=== PATIENT | male | born 1995 | race Asian ===

== ENCOUNTER 2019-10-07 20:54 | Emergency (ER) | payer OTHER ==
[2019-10-07 21:16] VITALS: BP 132/73; PULSE 76; TEMP 98.6; BMI 16.2
[2019-10-07] MEDS ORDERED: KETOROLAC TROMETHAMINE 60 MG/2 ML VIAL IM ONE (21:34)
[2019-10-07] MEDS ORDERED: METHOCARBAMOL 500 MG TABLET PO ONE (21:34)
--- NOTE | 2019-10-07 21:43 | PDOC ---
History of Present Illness - General Chief Complaint: Pain, Acute Stated Complaint: PAIN IN THE HIP Time Seen by Provider: 10/07/19 21:11 History Source: Patient Exam Limitations: Clinical Condition - History of Present Illness Initial Comments: 10/07/19 21:39 Patient with past medical history back bulging disc present with complaint of worsening left lower back pain radiating to posterior back of left thigh and hip pain which started this morning while laying down. Patient reported has been having URI symptoms and fevers for 2 weeks now and was seen by PCP and again in emergency room 2 days ago in [facility] in [place] which blood work and imaging was done and everything came back normal and was advised to follow-up with netsuite developer. Patient report did not have back pains until this morning. Denies any fever now. Denies cough today, shortness of breath, urinary frequency, dysuria, burning with urination, penile discharge, testicular pain or swelling. Patient has been taking naproxen prescribed by PCP for back pains which report has not been helping with back pain. Denies recent trauma or injury to lower back. Denies any other symptoms Is this a multiple visit Asthma Patient?: No Timing/Duration: other (this AM) Past History - Medical History Allergies/Adverse Reactions: Allergies Allergy/AdvReac Type Severity Reaction Status Date / Time No Known Allergies Allergy Verified 10/07/19 21:55 Home Medications: Ambulatory Orders Methocarbamol [Robaxin -] 500 mg PO BID PRN #14 tablet 10/07/19 Methylprednisolone [Medrol Dose Gerard] 4 mg PO ASDIR #21 tablet 10/07/19 COPD: No - Psycho-Social/Smoking History Smoking History: Never smoked - Substance Abuse Hx (Audit-C & DAST Scrn) How often the patient has a drink containing alcohol: Never Score: In Men: 4 or > Positive; In Women: 3 or > Positive: 0 Screen Result (Pos requires Nsg. Audit-10AR): Negative In the last yr the pt used illegal drug/Rx for NonMed reason: No Score: Yes response is considered Positive: 0 Screen Result (Positive result requires Nsg. DAST-10): Negative Review of Systems - Review of Systems Able to Perform ROS?: Yes Is the patient limited [place] proficient: No Constitutional: No: Chills, Fever, Malaise HEENTM: No: Symptoms Reported, See HPI, Eye Pain, Blurred Vision, Tearing, Recent change in vision, Double Vision, Cataracts, Ear Pain, Ocular Prothesis, Ear Discharge, Nose Pain, Nose Congestion, Tinnitus, Nose Bleeding, Hearing Loss, Throat Pain, Throat Swelling, Mouth Pain, Dental Problems, Difficulty Swallowing, Mouth Swelling, Other Respiratory: No: Symptoms reported, See HPI, Cough, Orthopnea, Shortness of Breath, SOB with Exertion, SOB at Rest, Stridor, Wheezing, Productive cough, Hemoptysis, Other Cardiac (ROS): No: Symptoms Reported, See HPI, Chest Pain, Edema, Irregular Heart Rate, Lightheadedness, Palpitations, Syncope, Chest Tightness, Other ABD/GI: No: Symptoms Reported, Nausea, Vomiting : No: Symptoms Reported, Dysuria, Discharge, Frequency, Hematuria, Urgency Musculoskeletal: Yes: Symptoms Reported, See HPI, Back Pain (left lower back). No: Muscle Weakness Integumentary: No: Symptoms Reported Neurological: No: Symptoms reported, Headache, Paresthesia, Weakness, Dizziness All Other Systems: Reviewed and Negative *Physical Exam - Vital Signs Last Vital Signs Temp Pulse Resp BP Pulse Ox 98.6 F 76 19 132/73 100 10/07/19 21:03 10/07/19 21:03 10/07/19 21:03 10/07/19 21:03 10/07/19 21:03 - Physical Exam 10/07/19 21:44 GENERAL: Well developed, well nourished. Awake and alert in moderate acute distress. CARDIOVASCULAR: Regular rate and rhythm. No murmurs, rubs, or gallops. PULMONARY: No evidence of respiratory distress. Lungs clear to auscultation bilaterally. No wheezing, rales or rhonchi. ABDOMINAL: Soft. Non-tender. Non-distended. No rebound or guarding. No organomegaly. Normoactive bowel sounds MUSCULOSKELETAL : Moderate subjective tenderness over posterior paravertebral muscle of lumbosacral spine of L4-5 to S2 on left side which is worse with external rotation of the hip to the right. No midline tenderness. Negative straight leg test. No bony deformities SKIN: Warm and dry. Normal capillary refill. No rashes. No jaundice. NEUROLOGICAL: Alert, awake, appropriate. No motor deficits in the lower extremities. Gait is normal without ataxia. PSYCHIATRIC: Cooperative. Good eye contact. Appropriate mood and affect. General Appearance: Yes: Nourished, Appropriately Dressed, Apparent Distress, Moderate Distress ED Treatment Course - RADIOLOGY Radiology Studies Ordered: Category Date Time Status PELVIS [RAD] Stat Radiology 10/07/19 21:34 Ordered SPINE-LUMBAR SACRAL [RAD] Stat Radiology 10/07/19 21:34 Ordered Medical Decision Making - Medical Decision Making 10/07/19 21:41 Patient with past medical history back bulging disc present with complaint of worsening left lower back pain radiating to posterior back of left thigh and hip pain which started this morning while laying down. Patient reported has been having URI symptoms and fevers for 2 weeks now and was seen by PCP and again in emergency room 2 days ago in [facility] in [place] which blood work and imaging was done and everything came back normal and was advised to follow-up with netsuite developer. Patient report did not have back pains until this morning. Denies any fever now. Denies cough today, shortness of breath, urinary frequency, dysuria, burning with urination, penile discharge, testicular pain or swelling. Patient has been taking naproxen prescribed by PCP for back pains which report has not been helping with back pain. Denies recent trauma or injury to lower back. Denies any other symptoms. Patient report back pain worse with getting up from sitting or laying position. Exam significant for moderate subjective tenderness to left paravertebral muscle of lumbosacral spine of L5-S1 which is worse with external rotation of the hip to the right. No midline tenderness. No radiculopathy on exam. Symptoms likely musculoskeletal pain and back spasm versus less likely cystitis UA, urine culture and urine GC and chlamydia tests ordered. Toradol 60 mg IM and Robaxin thousand milligrams p.o. ordered for back spasm. Lumbosacral spine and pelvic x-ray ordered to rule out acute abnormality. Reassess after medication and imaging 10/07/19 23:35 UA within normal limit. X-ray of lumbosacral shows straightening of the spine consistent with spasm. Patient reported improvement of back pain with Toradol and Robaxin. Patient stable for discharge on Medrol Gerard for inflammatory effect and Robaxin for spasm with advised to do hot compresses with orthopedic spine follow-up Discharge - Discharge Information Problems reviewed: Yes Clinical Impression/Diagnosis: Lumbago with sciatica, left side Qualifiers: Chronicity: acute Back pain laterality: left Qualified Code(s): M54.42 - Lumbago with sciatica, left side Condition: Improved Disposition: HOME - Admission No - Additional Discharge Information Prescriptions: Methylprednisolone [Medrol Dose Gerard] 4 mg PO ASDIR #21 tablet Methocarbamol [Robaxin -] 500 mg PO BID PRN #14 tablet PRN Reason: Back Pain - Follow up/Referral Referrals: Rubin Dominguez MD, FAANS [Staff Physician] - - Patient Discharge Instructions Patient Printed Discharge Instructions: DI for Low Back Pain Additional Instructions: Your urine lab was normal. Your x-ray shows spasm of the back which is likely the cause of your pain. Take prescribed medication as prescribed for back spasm. Apply heat to lower back 2-3 times a day as needed for pain. Follow-up referred to orthopedic asset specialist if symptoms persist for more than 3 days - Post Discharge Activity
[2019-10-07] MEDS ORDERED: LIDOCAINE 5% TOPICAL PATCH TP ONE (21:47)
[2019-10-07 21:53] LABS: PH,URINE 6.5 (5.0-8.0); URINE APPEARANCE CLEAR; URINE BILIRUBIN NEGATIVE (NEGATIVE); URINE COLOR YELLOW; URINE GLUCOSE (UA) NEGATIVE (NEGATIVE); URINE KETONE NEGATIVE (NEGATIVE); URINE LEUK ESTERASE NEGATIVE (NEGATIVE); URINE NITRITE NEGATIVE (NEGATIVE); URINE PROTEIN TRACE (NEGATIVE)
== END 2019-10-07 23:40 | disposition home or self-care (01) ==
LOC: JERFT 20:54
PROC: 3E0233Z Introduction of Anti-inflammatory into Muscle, Percutaneous Approach (ICD-10-PCS; principal; 2019-10-07)
DX: M54.42 Lumbago with sciatica, left side (principal)
CPT/HCPCS: 36415; 72100-TC-FY; 72170-TC-FY; 81003; 87086; 87491; 87591; 99284-25

== ENCOUNTER 2019-10-10 00:32 | Inpatient (IN) | payer OTHER ==
[2019-10-10 00:49] VITALS: BMI 29.8
--- NOTE | 2019-10-10 01:03 | PDOC ---
Attending Attestation - Resident Resident Name: Traci Delacruz - ED Attending Attestation I have performed the following: I have examined & evaluated the patient, The case was reviewed & discussed with the resident, I agree w/resident's findings & plan - HPI HPI: 10/10/19 01:57 see resident hpi - Physicial Exam PE: 10/10/19 01:58 see resident exam - Medical Decision Making 10/10/19 01:58 24-year-old male with persistent low back pain radiating to the leg, seen x2 prior for similar complaints Will CT abdomen pelvis and lumbar spine No history of urinary incontinence or retention, no saddle anesthesia Plan for admission for intractable pain and MRI pending results and IV steroids, Toradol and Valium Discharge - Discharge Information Problems reviewed: Yes Clinical Impression/Diagnosis: Lumbago with sciatica, left side Condition: Fair - Follow up/Referral Referrals: Benigno Beckman MD [Primary Care Provider] - - Patient Discharge Instructions - Post Discharge Activity
--- NOTE | 2019-10-10 01:07 | PDOC ---
History of Present Illness - General Chief Complaint: Back Pain Stated Complaint: BACK PAIN Time Seen by Provider: 10/10/19 01:02 - History of Present Illness Initial Comments: HPI Pt is a 24yo M with no significant PMH who presents with L posterior hip pain x3 days. Pt was here on 10/06 for left back pain with radiation to left posterior thigh and hip pain, pain was improved with Toradol and Robaxin, and he was discharged with Robaxin and medrol. Since then, he states that pain has been worsening, with no effect from the two prescriptions. States that pain is described as sharp left gluteal pain with paresthesia of left foot. States that he has been unable to move his leg due to pain. States that pain is worse with coughing, which he has had since his residual URI from 3 weeks ago. Reports cons tipation, cough. Denies any bowel or bladder incontinence, denies any recent trauma. Denies f/c, chest pain, SOB, abdominal pain, n/v. PCP: Karuna PMH: denies PSH: L ACL repair Meds: see chart Allergies: NKDA Social: denies tobacco, etoh, illicit drug use Review of Systems CONSTITUTIONAL:denies fever, chills, diaphoresis, generalized weakness, loss of appetite HEENT:denies rhinorrhea, nasal congestion, sore throat CARDIOVASCULAR:denies chest pain, syncope, palpitations, RESPIRATORY:reports cough; denies shortness of breath GASTROINTESTINAL: denies abdominal pain, nausea, vomiting, diarrhea, melena, hematochezia GENITOURINARY:denies dysuria, frequency, urgency, flank pain, genital pain MUSCULOSKELETAL:reports low back pain; denies myalgia, arthralgia, neck pain HEMATOLOGIC/IMMUNOLOGIC:denies easy bleeding, easy bruising ENDOCRINE: denies unexplained weight gain, unexplained weight loss NEUROLOGIC:reports L foot paresthesias, L leg weakness; denies headache, loss of consciousness, dizziness, mental status changes, bladder or bowel incontinence SKIN:denies rash, itching, pallor Physical Exam General: awake, alert, fully oriented, in moderate distress, well developed, well nourished Head: normocephalic, atraumatic Eyes: PERRL, EOMI, anicteric sclera, conjunctiva clear ENT: Auricles normal inspection, hearing grossly normal Neck: supple, normal ROM Lung: equal breath sounds b/l, CTA b/l, no crackles, wheezes; no distress, speaks full sentences Heart: RRR, normal S1, S2, no murmurs appreciated Abdomen: soft, non tender, normoactive bowel sounds, no guarding, rebound, masses Extremities: +straight leg raise of L leg, - active ROM of L leg, decreased dorsiflexion of L foot, sensation intact b/l; no edema, no erythema or tenderness, DP/PT pulses 2+ and symmetric; - saddle anesthesia Neuro: CN2-12 grossly intact, normal speech, sensation intact Skin: warm, dry, no rashes or lesions noted MDM Pt is a 24yo M with no significant PMH who presents with L posterior hip pain x3 days, previously seen here 3 days ago for ?sciatica discharged with Robaxin and Medrol, returning with worsening pain. DDx including but not limited to: sciatica, cauda equina, disc herniation Workup: labs, cxr, ekg TX: pain control EKG: normal sinus rhythm, HR 61bpm, SC 176ms, QRS 102ms, QTc 430ms, T wave in version in III, avr, v1 Bedside US of post void bladder size < 50cc CT lumbar spine: mild central canal narrowing at L4-L5 due to disc bulge, mild central canal narrowing and moderate L lateral recess narrowing at L5/S1, with possible L S1 nerve root compression secondary to herniated disc osteophyte complex - consider f/u MRI CT a/p: Minimal bilateral pleural effusions without definite evidence of pneumonia. Mild splenomegaly Will order CT chest, CRP, LDH, ferritin Labs: leukocytosis (13.2), no anemia, electrolytes WNL Elevated LFTs (AST 197, ALT 866, Alk Phos 389) - pt denies etoh use; states that a week ago, he was using 1000mg of Tylenol q6h for fever for 1.5 weeks and yesterday used the same dose for his pain. Will check salicylate, acetaminophen levels Salicylate <1.7 Acetaminophen <2 Elevated ferritin, CRP, LDH Ferritin: 2975.6 CRP 12.3 LDH 332 Called poison control, spoke with Angel(?), recommended repeat LFTs, if they are trending up, recommended starting NAC. Noted that elevated LFTs could be related to COVID. - Will order repeat LFT CT chest: There are small bilateral pleural effusions associated with atelectatic changes in the posterior lower lobes bilaterally. The remainder of the lungs are clear. The heart appears somewhat enlarged for 24-year-old. No pericardial effusions. - Will order cardiac profile Admission discussed with patient, who agreed with plan. Signed out to day team, Dr. Matthew Fry pending repeat LFT, cardiac profile, pending admission Past History - Medical History Allergies/Adverse Reactions: Allergies Allergy/AdvReac Type Severity Reaction Status Date / Time No Known Allergies Allergy Verified 10/10/19 00:48 Home Medications: Ambulatory Orders NK [No Known Home Medication] 10/10/19 COPD: No - Psycho-Social/Smoking History Smoking History: Never smoked Information on smoking cessation initiated: No - Substance Abuse Hx (Audit-C & DAST Scrn) How often the patient has a drink containing alcohol: Never Score: In Men: 4 or > Positive; In Women: 3 or > Positive: 0 Screen Result (Pos requires Nsg. Audit-10AR): Negative In the last yr the pt used illegal drug/Rx for NonMed reason: No Score: Yes response is considered Positive: 0 Screen Result (Positive result requires Nsg. DAST-10): Negative *Physical Exam - Vital Signs Last Vital Signs Temp Pulse Resp BP Pulse Ox 97.2 F L 89 18 125/77 96 10/10/19 00:43 10/10/19 00:43 10/10/19 00:43 10/10/19 00:43 10/10/19 00:43 ED Treatment Course - LABORATORY CBC & Chemistry Diagram: 10/11/19 05:44 10/11/19 05:44 Discharge - Discharge Information Problems reviewed: Yes Clinical Impression/Diagnosis: Lumbago with sciatica, left side Condition: Fair - Admission Yes - Follow up/Referral - Patient Discharge Instructions - Post Discharge Activity
[2019-10-10] MEDS ORDERED: DEXAMETHASONE 4 MG TABLET (FP) PO ONE (01:52)
[2019-10-10] MEDS ORDERED: KETOROLAC TROMETHAMINE 30 MG/1 ML VIAL IVPUSH ONE (01:53)
[2019-10-10] MEDS ORDERED: diazePAM 5 MG TABLET PO ONE (01:53)
[2019-10-10] MEDS ORDERED: DEXAMETHASONE SOD PHOSPHATE 10 MG/1 ML VIAL ONE (02:00)
[2019-10-10] MEDS ORDERED: KETOROLAC TROMETHAMINE 30 MG/1 ML VIAL ONE (02:01)
[2019-10-10] MEDS ORDERED: diazePAM 5 MG TABLET ONE (02:01)
[2019-10-10 02:16] LABS: BASO % 0.3 % (0-2.0); HEMATOCRIT 38.1 % (35.4-49); HEMOGLOBIN 12.8 GM/dL (11.7-16.9); LYMPH % 13.4 % (8-40); MCH 30.2 pg (25.7-33.7); MCHC 33.4 g/dl (32.0-35.9); MEAN CELL VOLUME 90.2 fl (80-96); MEAN PLT VOLUME 7.4 fl (7.5-11.1); MONO % 11.3 % (3.8-10.2); PLATELET COUNT 328 K/MM3 (134-434); RBC 4.23 M/mm3 (4.00-5.60); RDW 14.4 % (11.9-15.9); WHITE BLOOD COUNT 13.2 K/mm3 (4.0-10.0)
[2019-10-10 02:37] LABS: ALBUMIN 2.9 g/dl (3.4-5.0); BILIRUBIN,TOTAL 0.7 mg/dL (0.2-1); BLOOD UREA NITROGEN 12.8 mg/dL (7-18); CALCIUM 8.6 mg/dL (8.5-10.1); CREATININE 0.8 mg/dL (0.55-1.3); POTASSIUM 4.6 mmol/L (3.5-5.1); TOT PROT 7.4 g/dl (6.4-8.2)
[2019-10-10 04:05] LABS: PH,URINE 6.5 (5.0-8.0); URINE APPEARANCE CLEAR; URINE BILIRUBIN NEGATIVE (NEGATIVE); URINE COLOR YELLOW; URINE GLUCOSE (UA) NEGATIVE (NEGATIVE); URINE KETONE NEGATIVE (NEGATIVE); URINE LEUK ESTERASE NEGATIVE (NEGATIVE); URINE NITRITE NEGATIVE (NEGATIVE); URINE PROTEIN NEGATIVE (NEGATIVE)
[2019-10-10 04:24] LABS: INR 1.07 (0.83-1.09); PROTHROMBIN TIME (PATIENT) 12.6 SEC (9.7-13.0)
[2019-10-10 04:27] LABS: ACTIVATED PTT 32.5 SECONDS (25.2-36.5)
--- NOTE | 2019-10-10 07:32 | PDOC ---
*Physical Exam - Vital Signs Last Vital Signs Temp Pulse Resp BP Pulse Ox 97.2 F L 69 18 122/72 97 10/10/19 00:43 10/10/19 03:42 10/10/19 03:42 10/10/19 03:42 10/10/19 03:42 ED Treatment Course - LABORATORY CBC & Chemistry Diagram: 10/18/19 08:15 10/18/19 08:15 - ADDITIONAL ORDERS Additional order review: Laboratory Results 10/10/19 10/10/19 10/10/19 04:03 03:57 03:54 PT with INR 12.60 INR 1.07 PTT (Actin FS) 32.5 Sodium Potassium Chloride Carbon Dioxide Anion Gap BUN Creatinine Est GFR (CKD-EPI)AfAm Est GFR (CKD-EPI)NonAf Random Glucose Calcium Ferritin Cancelled Total Bilirubin AST ALT Alkaline Phosphatase LD Total Cancelled C-Reactive Protein Cancelled Total Protein Albumin Urine Color Urine Appearance Urine pH Ur Specific Sarver Urine Protein Urine Glucose (UA) Urine Ketones Urine Blood Urine Nitrite Urine Bilirubin Urine Urobilinogen Ur Leukocyte Esterase Salicylates < 1.7 L Acetaminophen < 2.0 10/10/19 10/10/19 03:46 01:50 PT with INR INR PTT (Actin FS) Sodium 136 Potassium 4.6 Chloride 102 Carbon Dioxide 26 Anion Gap 8 BUN 12.8 Creatinine 0.8 Est GFR (CKD-EPI)AfAm 146.96 Est GFR (CKD-EPI)NonAf 126.80 Random Glucose 123 H Calcium 8.6 Ferritin 2975.6 H Total Bilirubin 0.7 AST 197 H ALT 866 H Alkaline Phosphatase 389 H LD Total 332 H C-Reactive Protein 12.3 H Total Protein 7.4 Albumin 2.9 L Urine Color Yellow Urine Appearance Clear Urine pH 6.5 Ur Specific Sarver 1.019 Urine Protein Negative Urine Glucose (UA) Negative Urine Ketones Negative Urine Blood Negative Urine Nitrite Negative Urine Bilirubin Negative Urine Urobilinogen 1.0 Ur Leukocyte Esterase Negative Salicylates Acetaminophen 10/10/19 01:50 RBC 4.23 MCV 90.2 MCHC 33.4 RDW 14.4 MPV 7.4 L Neutrophils % 75.0 Lymphocytes % 13.4 Monocytes % 11.3 H Eosinophils % 0.0 Basophils % 0.3 - Medications Given in the ED: ED Medications Discontinued Medications Generic Name Dose Route Start Last Admin Trade Name Freq PRN Reason Stop Dose Admin Dexamethasone 10 mg 08/25/20 01:52 10/10/19 02:06 Decadron - PO 10/10/19 01:53 10 mg ONCE ONE Administration Diazepam 5 mg 10/10/19 01:53 10/10/19 02:06 Valium - PO 10/10/19 01:54 5 mg ONCE ONE Administration Ketorolac Tromethamine 30 mg 10/10/19 01:53 10/10/19 02:06 Toradol Injection - IVPUSH 10/10/19 01:54 30 mg ONCE ONE Administration Medical Decision Making - Medical Decision Making 10/10/19 07:30 24y/o M presenting to ED with back pain. trend lft's, if uptrending, NAC per poison control center impingement at S1 nerve root admit pt not in any acute distress at this time 10/10/19 07:38 CT lumbar spine: mild central canal narrowing at L4-L5 due to disc bulge, mild c entral canal narrowing and moderate L lateral recess narrowing at L5/S1, with possible L S1 nerve root compression secondary to herniated disc osteophyte complex - consider f/u MRI CT a/p: Minimal bilateral pleural effusions without definite evidence of pneumonia. Mild splenomegaly Will order CT chest, CRP, LDH, ferritin 10/10/19 09:35 spoke with poison control (Sonal) who will discuss case with toxicology fellow and call us back troponin negative EKG: NSR, no st elvations normal qt and pr intervals. second set of LFT's. AST reduced with mild increase in ALT acetaminophen and salicylate levels were negative, pt in no acute distress second page sent out to [facility] awaiting call back for admission. 10/10/19 09:51 poison control not recommending NAC. 10/10/19 11:36 admitting paged for admission. Discharge - Discharge Information Problems reviewed: Yes Clinical Impression/Diagnosis: Lumbago with sciatica, left side Condition: Improved Disposition: VNS/HOME HEALTH CARE - Follow up/Referral - Patient Discharge Instructions - Post Discharge Activity
[2019-10-10 08:44] LABS: ALBUMIN 3.2 g/dl (3.4-5.0); ALK PHOS 414 U/L (45-117); ANION GAP 13 MMOL/L (8-16); BILIRUBIN,TOTAL 0.8 mg/dL (0.2-1); BLOOD UREA NITROGEN 16.2 mg/dL (7-18); CHLORIDE 102 mmol/L (98-107); CO2 21 mmol/L (21-32); CREATININE 1.1 mg/dL (0.55-1.3); GLUCOSE,RANDOM 134 mg/dL (74-106); POTASSIUM 4.7 mmol/L (3.5-5.1); SGOT/AST 177 U/L (15-37); SGPT/ALT 889 U/L (13-61); SODIUM 136 mmol/L (136-145)
--- NOTE | 2019-10-10 10:15 | EKG ---
Test Reason : Blood Pressure : / mmHG Vent. Rate : 061 BPM Atrial Rate : 061 BPM P-R Int : 176 ms QRS Dur : 102 ms QT Int : 428 ms P-R-T Axes : 032 027 011 degrees QTc Int : 430 ms NORMAL SINUS RHYTHM NORMAL ECG NO PREVIOUS ECGS AVAILABLE Confirmed by MD Tylre Daniel ([id number]) on 10/10/2019 10:15:24 AM Referred By: Confirmed By:Misha Tyler MD
--- NOTE | 2019-10-10 13:01 | HP ---
CHIEF COMPLAINT: intractable RLE pain PCP: Dr. Benigno Beckman HISTORY OF PRESENT ILLNESS: 24M w/ no pmhx presents with complaints of LLE pain since last Wednesday (10/07/19). He woke up that morning and had extreme difficulty getting out of bed due to pain that started in his L glut radiating down the back of his R leg to his toes. Additionally, he complains of numbness and weakness in his L leg. States he required use of a crutch to help him walk around. Denies ever having this type of pain before although he does have a history of bulging discs in the L-spine after which he completed PT. On the same day of the start of his symptoms, he went to the ED and was discharged on Robaxin and Solumedrol. Neither medication gave him symptomatic relief so he presented today for further evaluation. He states the LLE pain is worse when coughing, sitting, and walking. At baseline, he is an active young male who usually exercises everyday (biking, running, weightlifting), however his usual physical activity level was interrupted 2 weeks ago when he developed a fever and productive cough. Since 2 weeks prior, he had been taking Tylenol for the fever, reports 1000mg Q6H. He took Tylenol for his more recent LLE pain as well, but again with no symptomatic relief. Denies any injury or trauma to leg. Currently, denies headaches, dizziness, f/c, chest pain, sob, abd pain, urinary/bowel symptoms, bowel/bladder incontinence. Denies sick contacts. ER course was notable for: (1) VS wnl, WBC 13.2, Ferr 2975, AST/ALT 197/866 --> 177/889, Alk P 389 --> 414, LDH 332, CRP 12.3 (2) Decadron 10 mg, IV Toradol 30, Valium 5 mg (3) Imaging studies as follows: * CT chest: Bibasal atelectatic changes, minimal b/l pleural effusion; cannot r/o superimposed pna; small pericardial effusion along inf margin of heart, hepatosplenomegaly * CTAP: No acute process * CT L-spine: L5-S1 minimal central/L paracentral disc bulge and min L paracentral posterior spur formation w/o gross nerve root impingement; L4-L5 level there is questionable min central disc bulge w/o nerve root impingement Given pt's acute transaminitis and recent use of Tylenol, poison control was contacted by ED team with recommendation for no further intervention and to avoid hepatoxic agents. 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 but since start of symptoms, has been staying with parents Allergies No Known Allergies Allergy (Verified 10/10/19 00:48) HOME MEDICATIONS: Home Medications Medication Instructions Recorded NK [No Known Home Medication] 10/10/19 REVIEW OF SYSTEMS CONSTITUTIONAL: Absent: fever, chills, diaphoresis, generalized weakness, malaise, loss of appetite, weight change HEENT: Absent: rhinorrhea, nasal congestion, throat pain, throat swelling, difficulty swallowing, mouth swelling, ear pain, eye pain, visual changes CARDIOVASCULAR: Absent: chest pain, syncope, palpitations, irregular heart rate, lightheadedness, peripheral edema RESPIRATORY: Absent: cough, shortness of breath, dyspnea with exertion, orthopnea, wheezing, stridor, hemoptysis GASTROINTESTINAL: Absent: abdominal pain, abdominal distension, nausea, vomiting, diarrhea, constipation, melena, hematochezia GENITOURINARY: Absent: dysuria, frequency, urgency, hesitancy, hematuria, flank pain, genital pain MUSCULOSKELETAL: +L gluteal pain with radiation down back of L leg to toes Absent: myalgia, arthralgia, joint swelling, back pain, neck pain SKIN: Absent: rash, itching, pallor HEMATOLOGIC/IMMUNOLOGIC: Absent: easy bleeding, easy bruising, lymphadenopathy, frequent infections ENDOCRINE: Absent: unexplained weight gain, unexplained weight loss, heat intolerance, cold intolerance NEUROLOGIC: +L leg numbness and tingling Absent: headache, focal weakness or paresthesias, dizziness, unsteady gait, seizure, mental status changes, bladder or bowel incontinence PSYCHIATRIC: Absent: anxiety, depression, suicidal or homicidal ideation, hallucinations. PHYSICAL EXAMINATION Vital Signs - 24 hr 10/10/19 10/10/19 10/10/19 00:43 03:42 07:36 Temperature 97.2 F L 97.6 F Pulse Rate 89 Pulse Rate [ 69 65 Left Radial] Respiratory 18 18 18 Rate Blood Pressure 125/77 Blood Pressure 122/72 124/80 [Right Arm] O2 Sat by Pulse 96 97 96 Oximetry (%) 10/10/19 12:00 Temperature Pulse Rate Pulse Rate [ 64 Left Radial] Respiratory 18 Rate Blood Pressure Blood Pressure 127/79 [Right Arm] O2 Sat by Pulse 98 Oximetry (%) GENERAL: Mildly uncomfortable appearing male, AAOx3. Cooperative. HEENT: AT/NC. EOMI. MMM. Facial muscles intact. NECK: Normal range of motion, supple without lymphadenopathy, JVD, or masses. LUNGS: CTA b/l. no wheezes/rales. HEART: RRR, normal S1, S2. No murmurs noted. ABDOMEN: Soft, NT/ND. normoactive bowel sounds. No rebound tenderness or guarding. MUSCULOSKELETAL: Limited ROM in b/l LE due to pain. +TTP in L glute, no masses or deformities noted. UPPER EXTREMITIES: 2+ pulses, warm, well-perfused. No cyanosis. No clubbing. No peripheral edema. 5/5 muscle strength in b/l extremities. LOWER EXTREMITIES: 2+ pulses, warm, well-perfused. No calf tenderness. No peripheral edema. Limited LLE ROM due to pain, but able to move b/l LE extremities on command. NEUROLOGICAL: Cranial nerves II-XII intact. Normal speech. SKIN: Warm, dry, normal turgor, no rashes or lesions noted, normal capillary refill. CBCD WBC 13.2 K/mm3 (4.0-10.0) H 10/10/19 01:50 RBC 4.23 M/mm3 (4.00-5.60) 10/10/19 01:50 Hgb 12.8 GM/dL (11.7-16.9) 10/10/19 01:50 Hct 38.1 % (35.4-49) 10/10/19 01:50 MCV 90.2 fl (80-96) 10/10/19 01:50 MCHC 33.4 g/dl (32.0-35.9) 10/10/19 01:50 RDW 14.4 % (11.9-15.9) 10/10/19 01:50 Plt Count 328 K/MM3 (134-434) 10/10/19 01:50 MPV 7.4 fl (7.5-11.1) L 10/10/19 01:50 CMP Sodium 136 mmol/L (136-145) 10/10/19 06:30 Potassium 4.7 mmol/L (3.5-5.1) 10/10/19 06:30 Chloride 102 mmol/L (98-107) 10/10/19 06:30 Carbon Dioxide 21 mmol/L (21-32) 10/10/19 06:30 Anion Gap 13 MMOL/L (8-16) 10/10/19 06:30 BUN 16.2 mg/dL (7-18) 10/10/19 06:30 Creatinine 1.1 mg/dL (0.55-1.3) 10/10/19 06:30 Calcium 9.0 mg/dL (8.5-10.1) 10/10/19 06:30 Total Bilirubin 0.8 mg/dL (0.2-1) 10/10/19 06:30 AST 177 U/L (15-37) H 10/10/19 06:30 ALT 889 U/L (13-61) H 10/10/19 06:30 Alkaline Phosphatase 414 U/L (45-117) H 10/10/19 06:30 Total Protein 8.0 g/dl (6.4-8.2) 10/10/19 06:30 Albumin 3.2 g/dl (3.4-5.0) L 10/10/19 06:30 IMAGING: * CT chest: Bibasal atelectatic changes, minimal b/l pleural effusion; cannot r/o superimposed pna; small pericardial effusion along inf margin of heart, hepatosplenomegaly * CTAP: No acute process * CT L-spine: L5-S1 minimal central/L paracentral disc bulge and min L paracentral posterior spur formation w/o gross nerve root impingement; L4-L5 level there is questionable min central disc bulge w/o nerve root impingement ASSESSMENT/PLAN: 24M w/ no pmhx presents with complaints of LLE pain. #LLE pain; 2/2 sciatica vs. nerve impingement vs. piriformis syndrome -CT L-spine done; results noted above. -Decadron, Valium, Toradol given x1 in ED -Gabapentin 100 TID -Valium 2 mg TID -Neurosurg consulted -Physical therapy #Acute Transaminitis; AST/ALT 177/889 -Avoid hepatotoxic drugs -Cont to trend -R/o COVID #Fever/Cough; CT +pleural effusion, cannot r/o pna -Will hold off on abx coverage for now as CT finding may be due to atelectasis -IS -Monitor for fever, cont to trend WBC for any worsening signs of infection -COVID pending, Ferritin/CRP/LDH elevated #Prophylaxis DVT: Lovenox #FEN -PO hydration -recheck lytes in AM -Regular diet Dispo -Admit to med-surg Family Medical History Family History: As Documented Visit type - Emergency Visit Emergency Visit: Yes Care time: The patient presented to the Emergency Department on the above date and was hospitalized for further evaluation of their emergent condition. - New Patient This patient is new to me today: Yes Date on this admission: 10/10/19 - Critical Care Critical Care patient: No ATTENDING PHYSICIAN STATEMENT I saw and evaluated the patient. I reviewed the resident's note and discussed the case with the resident. I agree with the resident's findings and plan as documented. SUBJECTIVE: OBJECTIVE: ASSESSMENT AND PLAN:
[2019-10-10] MEDS ORDERED: GABAPENTIN 100 MG CAPSULE ONE ×2 (13:36→21:33)
[2019-10-10] MEDS ORDERED: diazePAM 2 MG TABLET ONE ×2 (13:36→21:33)
[2019-10-10] MEDS: diazePAM 2 MG TABLET PO SCH ×2 (14:03→22:15)
[2019-10-10] MEDS: GABAPENTIN 100 MG CAPSULE PO SCH ×2 (14:03→22:15)
--- NOTE | 2019-10-10 14:13 | PN ---
Teaching Attending Note Name of Resident: Elin Colon ATTENDING PHYSICIAN STATEMENT I saw and evaluated the patient. I reviewed the resident's note and discussed the case with the resident. I agree with the resident's findings and plan as documented. SUBJECTIVE: 24yo M with no significant medical history presents today with acute lower back pain with radiation to his L leg. Patient reports that he was at his normal activity 1-2 weeks prior (biking and running) when he developed a cough and subjective fevers. Patient ceased exercising regularly and was taking Tylenol at that time for his symptoms (4 gm/day at peak use). Patient developed back pain and was seen in the ER 10/06 where he was discharged with a Medrol dose pack and Robaxin for spasms and inflammation of the lower back. Patient returned today due to acute worsening with severe pain down L leg. Patient denies any parasthesias or urinary incontinence. Currently, pt is unable to walk due to pain and instability from his acute episode. His ROM is severely limited and undergoes frequent spasms. In addition he has an infrequent unproductive cough, however he denies any fevers within 24h, sick contacts, SOB, CP, palpitations, abdominal pain, diarrhea/constipation. PMHX: None PSHx: ACL repair remotely FamHx: Noncontributory SoHx: No tobacco, alcohol, or illicit substances OBJECTIVE: Vital Signs Temperature 97.6 F 10/10/19 07:36 Pulse Rate 64 10/10/19 12:00 Respiratory Rate 18 10/10/19 12:00 Blood Pressure 127/79 10/10/19 12:00 O2 Sat by Pulse Oximetry (%) 98 10/10/19 12:00 Gen: NAD, awake, alert, laying in bed HEENT: NC/AT, COLE, EOMI, MMM Neck: no TTP of cervical spine LUNG: CTA b/l without wheezes/rales CARD: RRR no murmurs ABD: Soft, NT/ND normoactive BS MSK: No TTP down spinous processes of thoracic and lumbar spine, paraspinal muscle tension, ROM limited with L hip movement Neuro: Sensation intact in all area of lower extremities, strength of L leg 3/5 with hip flexion and hip abduction (limited 2/2 to pain) otherwise strength 5/5 throughout. Gait not examined CBC, BMP 10/10/19 01:50 10/10/19 06:30 Hepatic Panel Total Bilirubin 0.8 mg/dL (0.2-1) 10/10/19 06:30 AST 177 U/L (15-37) H 10/10/19 06:30 ALT 889 U/L (13-61) H 10/10/19 06:30 Alkaline Phosphatase 414 U/L (45-117) H 10/10/19 06:30 Albumin 3.2 g/dl (3.4-5.0) L 10/10/19 06:30 Active Medications Diazepam (Valium -) 2 mg PO TID [facility] Last Admin: 10/10/19 14:03 Dose: 2 mg Documented by: Gabapentin (Neurontin -) 100 mg PO TID [facility] Last Admin: 10/10/19 14:03 Dose: 100 mg Documented by: ASSESSMENT AND PLAN: Acute Lumbar Disc Herniation vs. musculoskeletal spasm Inability to ambulate Transaminitis --Start gabapentin 100mg TID for neuropathic pain --Valium 2mg TID PRN for muscular spams --Neurosurgery vs. ortho spine consult --Possibility of MRI for assessment of root impingement --Physical therapy --Transaminitis likely related to tylenol use --ED notified poison control which recommended observation without intervention --Gentle hydration --Monitor LFTs FEN: Fluids: If LFT elevate can gently hydrate Electrolyte abnormalities: none Nutrition: Regular Dispo: M/S David Newman DO - IM
[2019-10-10] MEDS ORDERED: guaiFENesin 600 MG TABLET.ER (FP) PO SCH (22:00)
[2019-10-11] MEDS ORDERED: oxyCODONE HCL 5 MG TABLET PO ONE (02:20)
[2019-10-11] MEDS ORDERED: oxyCODONE HCL 5 MG TABLET ONE (02:31)
[2019-10-11 06:11] LABS: BASO % 0.1 % (0-2.0); HEMATOCRIT 37.5 % (35.4-49); HEMOGLOBIN 12.6 GM/dL (11.7-16.9); LYMPH % 21.9 % (8-40); MCH 30.1 pg (25.7-33.7); MCHC 33.6 g/dl (32.0-35.9); MEAN CELL VOLUME 89.4 fl (80-96); MEAN PLT VOLUME 6.9 fl (7.5-11.1); MONO % 12.3 % (3.8-10.2); NEUT % 65.7 % (42.8-82.8); PLATELET COUNT 374 K/MM3 (134-434); WHITE BLOOD COUNT 11.2 K/mm3 (4.0-10.0)
[2019-10-11] MEDS ORDERED: GABAPENTIN 100 MG CAPSULE ONE ×2 (06:16→15:21)
[2019-10-11] MEDS ORDERED: diazePAM 2 MG TABLET ONE ×2 (06:16→15:21)
[2019-10-11] MEDS: diazePAM 2 MG TABLET PO SCH ×3 (06:26→21:21)
[2019-10-11] MEDS: GABAPENTIN 100 MG CAPSULE PO SCH ×3 (06:26→21:21)
[2019-10-11 06:39] LABS: ALBUMIN 2.8 g/dl (3.4-5.0); ANION GAP 10 MMOL/L (8-16); BILIRUBIN,TOTAL 0.7 mg/dL (0.2-1); CALCIUM 8.9 mg/dL (8.5-10.1); CHLORIDE 103 mmol/L (98-107); CO2 24 mmol/L (21-32); CREATININE 0.9 mg/dL (0.55-1.3); GLUCOSE,RANDOM 95 mg/dL (74-106); POTASSIUM 4.4 mmol/L (3.5-5.1); SGOT/AST 81 U/L (15-37); SGPT/ALT 590 U/L (13-61); SODIUM 137 mmol/L (136-145); TOT PROT 7.2 g/dl (6.4-8.2)
[2019-10-11 07:06] LABS: ALK PHOS 322 U/L (45-117)
[2019-10-11] MEDS ORDERED: ENOXAPARIN NA (PORCINE) 40 MG/0.4 ML DISP.SYRIN SQ SCH (10:00)
[2019-10-11] MEDS: ASCORBIC ACID 250 MG TABLET (FP) PO SCH ×2 (10:44→22:31)
[2019-10-11] MEDS: CHOLECALCIFEROL (VIT D3) 400 UNIT (10 MCG) TABLET PO SCH (10:44)
[2019-10-11] MEDS ORDERED: ZINC SULFATE 220 MG CAPSULE (FP) ONE (10:46)
[2019-10-11] MEDS ORDERED: ENOXAPARIN NA (PORCINE) 40 MG/0.4 ML DISP.SYRIN SQ ONE (10:47)
[2019-10-11] MEDS: ZINC SULFATE 220 MG CAPSULE (FP) PO SCH ×2 (10:47→21:22)
[2019-10-11] MEDS: BENZOCAINE/MENTH/CETYLPYRD CL 1 EACH LOZENGE MM PRN ×2 (11:04→15:46)
[2019-10-11 12:00] LABS: BILIRUBIN,DIRECT 0.3 mg/dL (0.0-0.2)
[2019-10-11] MEDS ORDERED: PIPERACILLIN/TAZOB 3.375 GM 3.375 GM in DEXTROSE 5%-WATER - 50 ML IVPB SCH (14:15)
[2019-10-11] MEDS ORDERED: DEXAMETHASONE SOD PHOSPHATE 10 MG/1 ML VIAL IVPUSH ONE (14:40)
[2019-10-11] MEDS ORDERED: PIPERACILLIN/TAZOB 3.375 GM 3.375 GM/50 ML BAG IVPB ONE (15:21)
[2019-10-11] MEDS ORDERED: DEXAMETHASONE SOD PHOSPHATE 10 MG/1 ML VIAL ONE (15:21)
[2019-10-11] MEDS: PIPERACILLIN/TAZOB 3.375 GM 3.375 GM in DEXTROSE 5%-WATER - 50 ML IVPB SCH ×2 (15:27→18:38)
--- NOTE | 2019-10-11 16:55 | PN ---
Physical Exam: SUBJECTIVE: Patient seen and examined at bedside. Pt reports back pain and severe weakness of b/l lower extremity and cough. Denies any recent fever, chills, SOB, abdominal pain, chest pain, incontinence and diarrhea. endorses fever on wednesday. states cannot move legs due to weakness and pain OBJECTIVE: Vital Signs Period Temp Pulse Resp BP Sys/Sims Pulse Ox Last 24 Hr 97.9 F-98.1 F 69-78 16-18 110-122/62-76 98-[address] barros, due to decreased exposure/limited PPE Pt is AAAox3 +s1 s2, no murmurs noted CTA b/l 2/5 LLE weakness, 3/5 on the RLE no Lower extremity edema b/l pulses palpable in all extremities Laboratory Results - last 24 hr 10/10/19 10/11/19 10/11/19 05:00 03:56 05:44 WBC 11.2 H RBC 4.20 Hgb 12.6 Hct 37.5 MCV 89.4 MCH 30.1 MCHC 33.6 RDW 14.0 Plt Count 374 MPV 6.9 L Absolute Neuts (auto) 7.3 Neutrophils % 65.7 Lymphocytes % 21.9 D Monocytes % 12.3 H Eosinophils % 0.0 Basophils % 0.1 Nucleated RBC % 0 ESR D-Dimer 1028 H Sodium Potassium Chloride Carbon Dioxide Anion Gap BUN Creatinine Est GFR (CKD-EPI)AfAm Est GFR (CKD-EPI)NonAf Random Glucose Calcium Ferritin Total Bilirubin Direct Bilirubin AST ALT Alkaline Phosphatase C-Reactive Protein Total Protein Albumin Acetaminophen COVID-19 (KAREN) Not detected 10/11/19 10/11/19 10/11/19 05:44 05:44 15:24 WBC RBC Hgb Hct MCV MCH MCHC RDW Plt Count MPV Absolute Neuts (auto) Neutrophils % Lymphocytes % Monocytes % Eosinophils % Basophils % Nucleated RBC % ESR 85 H D-Dimer Sodium 137 Potassium 4.4 Chloride 103 Carbon Dioxide 24 Anion Gap 10 BUN 19.0 H Creatinine 0.9 Est GFR (CKD-EPI)AfAm 140.02 Est GFR (CKD-EPI)NonAf 120.81 Random Glucose 95 Calcium 8.9 Ferritin > 2000.0 H Total Bilirubin 0.7 Direct Bilirubin 0.3 H AST 81 H ALT 590 H Alkaline Phosphatase 322 H C-Reactive Protein 7.2 H Total Protein 7.2 Albumin 2.8 L Acetaminophen < 2 COVID-19 (KAREN) Active Medications Generic Name Dose Route Start Last Admin Trade Name Freq PRN Reason Stop Dose Admin Ascorbic Acid 250 mg 10/11/19 10:00 10/11/19 10:44 Vitamin C - PO 250 mg BID AMINA Administration Benzocaine/Menthol 1 each 10/10/19 17:28 10/11/19 15:46 Cepacol Lozenge - MM 1 each PRN PRN Administration SORE THROAT Cholecalciferol 800 unit 10/11/19 10:00 10/11/19 10:44 Vitamin D3 - PO 800 unit DAILY AMINA Administration Diazepam 2 mg 10/10/19 14:00 10/11/19 15:26 Valium - PO 2 mg TID AMINA Administration Enoxaparin Sodium 40 mg 10/11/19 10:00 10/11/19 10:47 Lovenox - SQ 40 mg DAILY AMINA Administration Gabapentin 100 mg 10/10/19 14:00 10/11/19 15:26 Neurontin - PO 100 mg TID AMINA Administration Piperacillin Sod/Tazobactam 50 mls @ 100 mls/hr 10/11/19 14:15 Sod 3.375 gm/ Dextrose IVPB Q8H-IV AMINA Protocol Piperacillin Sod/Tazobactam 50 mls @ 100 mls/hr 10/11/19 14:15 10/11/19 15:27 Sod 3.375 gm/ Dextrose IVPB 10/12/19 14:14 100 mls/hr Q8H-IV AMINA Administration Protocol Morphine Sulfate 2 mg 10/11/19 14:38 Morphine Sulfate IVPUSH Q6H PRN PAIN LEVEL 4 - 6 Zinc Sulfate 220 mg 10/11/19 10:00 10/11/19 10:47 Orazinc - PO 220 mg BID AMINA Administration IMAGING 10/10/19: * CT chest: Bibasal atelectatic changes, minimal b/l pleural effusion; cannot r/o superimposed pna; small pericardial effusion along inf margin of heart, hepatosplenomegaly * CTAP: No acute process * CT L-spine: L5-S1 minimal central/L paracentral disc bulge and min L paracentral posterior spur formation w/o gross nerve root impingement; L4-L5 level there is questionable min central disc bulge w/o nerve root impingement MRI L Spine 10/11/19- DJD L4/5, L5/S1. L5/S1 disc herniation with extruded disc obliterating the left epidural recesses with mass effect on the L S1 nerve root; L4/5midline herniation lateralizing toward the R with indentation on the R L5 nerve root. no evidence of septic spondylitis, epidural abscess or praraspinal masses. ASSESSMENT/PLAN: 24M w/ no pmhx presents with complaints of LLE pain and weakness with infrequent unproductive cough. #LLE weakness/pain - Possible nerve root impairment vs abscess vs compression - CT L-spine done; results noted above. Ordered Lumbar MRI - continue Gabapentin 100 TID - continue Valium 2 mg TID - Neurosurg consulted, pending recs - Physical therapy on board - pain management consulted - Neurology consulted, pending recs - Decadron 10 given #Elavated inflamatory markers, r/o covid - Covid negative, will repeat covid - D-dimer 1028, Ferritin 2975, LD 332, CRP 12.3 - Coninue to monitor v/s - CTA negative for PE, Duplex negative for DVT - No Disciitis or abscess on MRI L Spine, pending MRI T Spine - continue to trend inflammatory markers - Will send flu swab and viral panel - Blood/Urine Cx pending - Continue zosyn #Acute Transaminitis - AST/ALT 177/889 - Avoid hepatotoxic drugs - Cont to trend LFTs - GI consulted, Dr. Hernandez, recs: When stable, MRCP for further eval - f/u hepatitis panel - CTAB reviewed: hepatomegaly noted - Abdomen u/s ordered #Prophylaxis - DVT: Holding Lovenox pending Neurosurgery eval. - will give GI PPX protonix daily #FEN - No standing fluids - Continue to monitor electrolytes - Regular diet Dispo - Continue to monitor in med-surg Visit type - Emergency Visit Emergency Visit: Yes ED Registration Date: 10/10/19 Care time: The patient presented to the Emergency Department on the above date and was hospitalized for further evaluation of their emergent condition. - New Patient This patient is new to me today: Yes Date on this admission: 10/15/19 - Critical Care Critical Care patient: No - Discharge Referral Referred to [facility] No ATTENDING PHYSICIAN STATEMENT I saw and evaluated the patient. I reviewed the resident's note and discussed the case with the resident. I agree with the resident's findings and plan as documented. SUBJECTIVE: OBJECTIVE: ASSESSMENT AND PLAN:
--- NOTE | 2019-10-11 17:01 | PN ---
Progress Note (short form) - Note Progress Note: GI CONSULT DICTATED SEROLOGY ORDERED WHEN STABLE MRCP TO FURTHER EVALUATE THE BILIARY TREE TREND LFT DAILY NEUROSURGERY F/U
[2019-10-11] MEDS ORDERED: DEXTROSE 5%-WATER - 50 ML IVPB ONE (18:00)
[2019-10-11] MEDS ORDERED: PIPERACILLIN/TAZOBACTAM 3.375 GM VIAL IVPB ONE (18:00)
--- NOTE | 2019-10-11 18:47 | PN ---
Teaching Attending Note Name of Resident: Min Easley ATTENDING PHYSICIAN STATEMENT I saw and evaluated the patient. I reviewed the resident's note and discussed the case with the resident. I agree with the resident's findings and plan as documented. SUBJECTIVE: Pain LLE limiting range of motion. Pain on LLE on moving RLE. No fever/chills. No sensory loss. OBJECTIVE: Afebrile, Hemodynamically stable. Last Vital Signs Temp Pulse Resp BP Pulse Ox 98.2 F 70 16 130/72 99 10/11/19 17:50 10/11/19 17:50 10/11/19 17:50 10/11/19 17:50 10/11/19 17:50 HEENT - Atraumatic, normocephalic Heart - S1, s2, RRR Lungs - clear to auscultation Abdomen - soft, non-tender. Bowel Sounds normal. Extremities - No edema, no calf tenderness. Neuro - AAO x 3. Severe pain limiting neurological exam LEs. Appears to have good tone and strength distal to knee. Laboratory Results - last 24 hr 10/10/19 10/11/19 10/11/19 05:00 03:56 05:44 WBC 11.2 H RBC 4.20 Hgb 12.6 Hct 37.5 MCV 89.4 MCH 30.1 MCHC 33.6 RDW 14.0 Plt Count 374 MPV 6.9 L Absolute Neuts (auto) 7.3 Neutrophils % 65.7 Lymphocytes % 21.9 D Monocytes % 12.3 H Eosinophils % 0.0 Basophils % 0.1 Nucleated RBC % 0 ESR D-Dimer 1028 H Sodium Potassium Chloride Carbon Dioxide Anion Gap BUN Creatinine Est GFR (CKD-EPI)AfAm Est GFR (CKD-EPI)NonAf Random Glucose Calcium Ferritin Total Bilirubin Direct Bilirubin AST ALT Alkaline Phosphatase C-Reactive Protein Total Protein Albumin Acetaminophen COVID-19 (KAREN) Not detected 10/11/19 10/11/19 10/11/19 05:44 05:44 15:24 WBC RBC Hgb Hct MCV MCH MCHC RDW Plt Count MPV Absolute Neuts (auto) Neutrophils % Lymphocytes % Monocytes % Eosinophils % Basophils % Nucleated RBC % ESR 85 H D-Dimer Sodium 137 Potassium 4.4 Chloride 103 Carbon Dioxide 24 Anion Gap 10 BUN 19.0 H Creatinine 0.9 Est GFR (CKD-EPI)AfAm 140.02 Est GFR (CKD-EPI)NonAf 120.81 Random Glucose 95 Calcium 8.9 Ferritin > 2000.0 H Total Bilirubin 0.7 Direct Bilirubin 0.3 H AST 81 H ALT 590 H Alkaline Phosphatase 322 H C-Reactive Protein 7.2 H Total Protein 7.2 Albumin 2.8 L Acetaminophen < 2 COVID-19 (KAREN) Current Medications Generic Name Dose Route Start Last Admin Trade Name Freq PRN Reason Stop Dose Admin Ascorbic Acid 250 mg 10/11/19 10:00 10/11/19 10:44 Vitamin C - PO 250 mg BID AMINA Administration Benzocaine/Menthol 1 each 10/10/19 17:28 10/11/19 15:46 Cepacol Lozenge - MM 1 each PRN PRN Administration SORE THROAT Cholecalciferol 800 unit 10/11/19 10:00 10/11/19 10:44 Vitamin D3 - PO 800 unit DAILY AMINA Administration Diazepam 2 mg 10/10/19 14:00 10/11/19 15:26 Valium - PO 2 mg TID AMINA Administration Enoxaparin Sodium 40 mg 10/11/19 10:00 10/11/19 10:47 Lovenox - SQ 40 mg DAILY AMINA Administration Gabapentin 100 mg 10/10/19 14:00 10/11/19 15:26 Neurontin - PO 100 mg TID AMINA Administration Piperacillin Sod/Tazobactam 50 mls @ 100 mls/hr 10/11/19 14:15 Sod 3.375 gm/ Dextrose IVPB Q8H-IV AMINA Protocol Piperacillin Sod/Tazobactam 50 mls @ 100 mls/hr 10/11/19 14:15 10/11/19 15:27 Sod 3.375 gm/ Dextrose IVPB 10/12/19 14:14 100 mls/hr Q8H-IV AMINA Administration Protocol Morphine Sulfate 2 mg 10/11/19 14:38 Morphine Sulfate IVPUSH Q6H PRN PAIN LEVEL 4 - 6 Zinc Sulfate 220 mg 10/11/19 10:00 10/11/19 10:47 Orazinc - PO 220 mg BID AMINA Administration Home Medications Medication Instructions Recorded Methocarbamol [Robaxin -] 500 mg PO BID PRN 10/11/19 ASSESSMENT AND PLAN: 24 year old male with history of DJD Spine with disc disease, complains of 4 day history of LLE pain starting in his L glut radiating down the back of his L leg to his toes. Recent febrile illness and sinus congestion/cough. CT chest: Bibasal atelectatic changes, minimal b/l pleural effusion; cannot r/o superimposed pna; small pericardial effusion along inferior margin of heart, hepatosplenomegaly CTA/P: No acute process CT L-spine: L5-S1 minimal central/L paracentral disc bulge and min L paracentral posterior spur formation w/o gross nerve root impingement; L4-L5 level there is questionable min central disc bulge w/o nerve root impingement 1. Acute Disc Herniation with radiculopathy MRI L Spine - DJD L4/5, L5/S1. L5/S1 disc herniation with extruded disc obliterating the left epidural recesses with mass effect on the L S1 nerve root; L4/5midline herniation lateralizing toward the R with indentation on the R L5 nerve root. no evidence of septic spondylitis, epidural abscess or praraspinal masses. Started on Decadron, Valium, Gabapentin, Morphine PRN Awaiting Neurosurgery evaluation Neurology consulted. 2. ?Infective/Inflamatory process DDIMER/CRP/Ferritin/ESR elevated CTA chest - no PE, bibasilar atelectasis/Duplex LEs - No DVT. No Disciitis or abscess on MRI L Spine, MRI T Spine ordered COVID PCR negative Blood/Urine Cx pending. Afebrile, Hemodynamically Stable - Empiric Zosyn pending Cultures. 3. Elevated Transaminases with CBD dilatation - LFTs improving, no abdominal symptoms or fever GI consulted for further evaluation and recommendations. 4. Pericardial effusion on CT - Echo ordered. DVT Px - Will hold Lovenox pending Neurosurgery eval.
[2019-10-11] MEDS ORDERED: PANTOPRAZOLE SODIUM 40 MG VIAL IVPUSH SCH (19:00)
--- NOTE | 2019-10-11 19:31 | CONS ---
GASTROINTESTINAL CONSULTATION DATE OF CONSULTATION: DATE OF DICTATION: 10/11/2019 Patient is a 24-year-old man with no significant past medical history, who presents to the hospital with left lower extremity pain which began on Wednesday. He had difficulty walking and parasthesia. This consultation is for abnormal liver tests as well as biliary ductal dilation on imaging study. As per the patient, he denies any previous history of liver disease. No abdominal pain, jaundice, nausea, vomiting, hematemesis, melena, hematochezia, change in his bowel habits. He has never had an endoscopic evaluation in the past. He reports taking Tylenol for fever, apparently 1000 mg q.6 for a couple of days secondary to his lower extremity pain. He denies any other herbal supplements or new medications or antibiotics. PAST MEDICAL AND SURGICAL HISTORY: As listed in the HPI, with the addition of a left ACL repair. FAMILY HISTORY: Diabetes and hypertension. No history of liver disease or gynecological or GI malignancy. SOCIAL HISTORY: Does not drink, smoke, or use drugs. 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 ALLERGIES: No known drug allergies. HOME MEDICATIONS: None. REVIEW OF SYSTEMS: As per the HPI. PHYSICAL EXAMINATION: Vital Signs: Temperature 97, pulse 71, blood pressure 115/62, pulse oximetry 99% on room air, respiratory rate 16. General: No acute distress. HEENT: Anicteric sclerae. Cardiovascular: S1, S2. Regular rate and rhythm. Lungs: Bilaterally clear to auscultation. Abdomen: Soft, nontender. Extremities: Without edema. LABORATORY DATA: White blood cell count 13 on admission, presently 11.2; hemoglobin 12 and hematocrit 37; MCV 89; platelet count 374. INR 1. Sodium 137, potassium 4.4, BUN 19, creatinine 0.9, glucose 95, total bilirubin 0.7. AST 81, down from 197. ALT 590, down from 866. Alkaline phosphatase 322, down from 389. LDH 332. CRP is elevated. Urine is negative. Acetaminophen level is less than 2. COVID is not detected. He had abdomen and pelvic CT scan which revealed questionable pneumonia; hepatosplenomegaly; no compression fractures; L5-S1 mild, mainly left, paracentral disk bulge; posterior spur formation reaching left S1 nerve root. He also had chest/thorax CTA which was limited evaluation of the pulmonary artery branches due to breathing artifacts. No pulmonary embolism. Lumbar spine MRI: No evidence of abscess, paraspinal masses, septic spondylitis. L5-S1 left-side herniation with extruding disk obliterating the left epidural recesses with mass effect on the S1 nerve root. L4-L5 midline herniation, midline lateralizing toward the right with indentation on the right L5 nerve root and the recess. Also, had an ultrasound of the abdomen which revealed hepatosplenomegaly, coarse echotexture suggestive of mild fatty infiltration versus hepatocellular disease. No gallstones. Mild biliary ductal dilatation measuring 7 mm. IMPRESSION: Transaminitis, hepatocellular pattern, most likely medication induced. Other etiology of chronic and inherited liver disease will be excluded. Serologies will be ordered including , KATHRIN, smooth muscle antibody, alpha-1 antitrypsin, and viral hepatitis serologies. Minimally dilated common bile duct. Recommend avoiding hepatotoxic medications, trend liver tests daily while hospitalized. Diet can be advanced as tolerated. Once more stable, an MRCP would be recommended to further evaluate the biliary tree. I do not believe he has any sign of choledocholithiasis. Recommend evaluation by Neurosurgery and Ortho. DO RADHA NIÑO/[id number] MTDD
[2019-10-11] MEDS ORDERED: guaiFENesin 200 MG/10 ML 10 ML UNIT-DOSE CUPS PO ONE (21:00)
[2019-10-11] MEDS: MORPHINE SULFATE 2 MG/ML VIAL IVPUSH PRN (21:22)
--- NOTE | 2019-10-11 23:14 | CONSULT ---
Consult - text type - Consultation Consultation Note: NEUROSURGERY CONSULTATION Patient is a 24-year-old male with a remote history of lumbar disc herniation associated with athletic activity. This resolved with conservative management. Patient was in his relative state of good health until this past Wednesday when he began to notice severe low back pain with radiation to his left greater than right leg. Patient denies any recent antecedent accident or injury which may be causative however he describes a two week history of fevers and feeling unwell prior to the onset of the symptoms. The patient visited the emergency room was given muscle relaxants and other medications and discharged on Wednesday. The patient has not improved and indeed notes severe and intractable pain and returned to the emergency room last evening. CT scan revealed herniated discs at L45 and L5S1 which are not well characterized and MRI scan was advised. Patient and underwent admission and MRI scanning of the lumbar spine today. This confirms a small right sided disc bulge at L45 and a larger L5S1 disc herniation eccentric to the left. Both of these have zones of high intensity suggestive of relative acuity. The patient is neurologically non-focal although his exam is limited by pain and he is unable to get out of bed. The patient has no bowel or bladder symptoms and no sacral numbness. There is no fixed motor deficit. I discussed with patient and relative that in the absence of a fixed motor deficit or Cauda Equina syndrome, surgery is not mandatory. Indeed the patient greatly wishes to avoid surgery which is understandable. I explained that severe intractable pain refractory to all conservative efforts may represent relative indication for surgery however barring neurologic deficit, surgery in a young patient with less than 8 weeks duration of symptoms is not typically recommended. The patient verbalizing understanding this information. I describe the role of both epidural steroid injection and oral anti- inflammatory medication as well as physical therapy. At this point there is no acute neurosurgical intervention which is indicated or planned, however I will follow along with the team. Patient may resume normal diet and I advise that medications be monitored per pharmacy and poison control recommendations given his elevated liver function tests. He may be a better candidate for an injection versus systemic medication on this account.
[2019-10-12] MEDS ORDERED: PIPERACILLIN/TAZOBACTAM 3.375 GM VIAL IVPB ONE ×2 (02:09→10:17)
[2019-10-12] MEDS ORDERED: DEXTROSE 5%-WATER - 50 ML IVPB ONE ×3 (02:09→13:22)
[2019-10-12] MEDS: PIPERACILLIN/TAZOB 3.375 GM 3.375 GM in DEXTROSE 5%-WATER - 50 ML IVPB SCH ×2 (02:36→10:26)
[2019-10-12] MEDS: MORPHINE SULFATE 2 MG/ML VIAL IVPUSH PRN ×2 (04:04→22:45)
[2019-10-12] MEDS: GABAPENTIN 100 MG CAPSULE PO SCH (06:20)
[2019-10-12] MEDS: diazePAM 2 MG TABLET PO SCH ×3 (06:20→21:27)
[2019-10-12 08:58] LABS: BASO % 0.2 % (0-2.0); HEMATOCRIT 36.8 % (35.4-49); HEMOGLOBIN 12.4 GM/dL (11.7-16.9); LYMPH % 20.6 % (8-40); MCH 30.1 pg (25.7-33.7); MCHC 33.7 g/dl (32.0-35.9); MEAN CELL VOLUME 89.4 fl (80-96); MEAN PLT VOLUME 6.8 fl (7.5-11.1); MONO % 12.9 % (3.8-10.2); NEUT % 66.3 % (42.8-82.8); PLATELET COUNT 394 K/MM3 (134-434); RBC 4.12 M/mm3 (4.00-5.60); RDW 14.3 % (11.9-15.9); WHITE BLOOD COUNT 9.2 K/mm3 (4.0-10.0)
[2019-10-12 09:25] LABS: ALBUMIN 2.8 g/dl (3.4-5.0); BLOOD UREA NITROGEN 19.5 mg/dL (7-18); CALCIUM 8.9 mg/dL (8.5-10.1); CREATININE 0.8 mg/dL (0.55-1.3); MAGNESIUM 2.5 mg/dL (1.8-2.4); PHOSPHOROUS 4.1 mg/dL (2.5-4.9); POTASSIUM 4.6 mmol/L (3.5-5.1); TOT PROT 7.3 g/dl (6.4-8.2)
--- NOTE | 2019-10-12 09:38 | CONSULT ---
Consult Consult Specialty:: Interventional Spine & Pain Medicine Reason for Consultation:: Lumbar Radiculopathy - History of Present Illness Chief Complaint: Low back and Left Leg pain History of Present Illness: The patient has history of low back pain and radiculopathy. He had recent exacerbation over the last two weeks. Pt also endorsed fevers and overall not feeling well. Pt found to have Transaminitis possibly secodnary to tylenol use however pt also endores frequent supplement use includign creatine etc for body building purposes. Pain is radted 910 radiating down his left leg. Pain described as burnging tingling. - History Source History Provided By: Patient, Medical Record Limitations to Obtaining History: No Limitations - Smoking History Smoking history: Never smoked Have you smoked in the past 12 months: No Home Medications - Allergies Allergies/Adverse Reactions: Allergies Allergy/AdvReac Type Severity Reaction Status Date / Time No Known Allergies Allergy Verified 10/10/19 00:48 - Home Medications Home Medications: Ambulatory Orders Methocarbamol [Robaxin -] 500 mg PO BID PRN 10/11/19 Review of Systems - Review of Systems Constitutional: reports: No Symptoms Eyes: reports: No Symptoms HENT: reports: No Symptoms Neck: reports: No Symptoms Cardiovascular: reports: No Symptoms Respiratory: reports: No Symptoms Gastrointestinal: reports: No Symptoms Genitourinary: reports: No Symptoms Musculoskeletal: reports: Back Pain Neurological: reports: Other (Parasthesias) Hematology/Lymphatic: reports: No Symptoms Psychiatric: reports: No Symptoms Pain Intensity: 8 Physical Exam Vital Signs: Vital Signs Temperature 97.7 F 10/12/19 05:00 Pulse Rate 52 L 10/12/19 05:00 Respiratory Rate 18 10/11/19 22:00 Blood Pressure 140/66 10/12/19 05:00 O2 Sat by Pulse Oximetry (%) 97 10/12/19 05:00 Constitutional: Yes: Well Nourished, No Distress, Calm Eyes: Yes: Conjunctiva Clear, EOM Intact HENT: Yes: Atraumatic, Normocephalic Neck: Yes: Trachea Midline Cardiovascular: Yes: Regular Rate and Rhythm Respiratory: Yes: Regular Gastrointestinal: Yes: Soft Musculoskeletal: Yes: Back Pain Edema: No Integumentary: Yes: WNL Neurological: Yes: Alert, Oriented, Numbness, Paresthesia, Tingling ...Motor Strength: WNL (Right LE MMT 5/5 throughout Left LE MMT 5/5 Throughout) Psychiatric: Yes: Alert, Oriented Labs: CBC, BMP 10/12/19 07:30 10/12/19 07:30 Imaging - Results Cat Scan: Report Reviewed, Image Reviewed Ultrasound: Report Reviewed, Image Reviewed Assessment/Plan The patients pain is likley secondary to his L4-L5 and L5-S1 degenerative disk disease with HIZ on L5-S1 disk likley causing both a compressive and chemical radiculopathy. Recommendations: Pt is a candidate for a Left Transforaminal epidural steroid injection and L4 and L5. He will need to be cleared of any infection prior to injection. Consider Uptitrating gabapentin to 900 TID as tolerated. Monitor for sedation. Physical Therapy Eval May consider Medrol dose pack vs standing NSAID. Per Primary Care Team. Once patient is medically stable he would benefit from ORALIA. Thank You for Your Consult Steven Flynn DO Interventional Spine and Pain Management
[2019-10-12] MEDS: CHOLECALCIFEROL (VIT D3) 400 UNIT (10 MCG) TABLET PO SCH (10:25)
[2019-10-12] MEDS: ZINC SULFATE 220 MG CAPSULE (FP) PO SCH ×2 (10:26→21:27)
[2019-10-12] MEDS ORDERED: GABAPENTIN 300 MG CAPSULE PO SCH (11:00)
--- NOTE | 2019-10-12 11:21 | PN ---
Progress Note (short form) - Note Progress Note: Patient remain stable. Agree with plans for epidural steroid injection.
--- NOTE | 2019-10-12 11:38 | CON.NEURO ---
Consult - Smoking History Smoking history: Never smoked Have you smoked in the past 12 months: No Home Medications - Allergies Allergies/Adverse Reactions: Allergies Allergy/AdvReac Type Severity Reaction Status Date / Time No Known Allergies Allergy Verified 10/10/19 00:48 - Home Medications Home Medications: Ambulatory Orders Methocarbamol [Robaxin -] 500 mg PO BID PRN 10/11/19 Physical Exam-Neuro Vital Signs: Vital Signs Temperature 97.7 F 10/12/19 05:00 Pulse Rate 52 L 10/12/19 05:00 Respiratory Rate 18 10/11/19 22:00 Blood Pressure 140/66 10/12/19 05:00 O2 Sat by Pulse Oximetry (%) 97 10/12/19 05:00 Labs: CBC, BMP 10/12/19 07:30 10/12/19 07:30 INR, PTT INR 1.07 (0.83-1.09) 10/10/19 04:03 Assessment/Plan cc Left radicualr low back pain HPI 24 year old male history of low back pain for two years he has been treated conservative. He is on gabapentin, morphine.Patient is having severe low abck pain shooting down to left lower extremity pain. He has mri of L spine showed there is large L5-s1 disc prolapse and herniation at left side s1 nerve. His pain is wose with coughing, stiting and walking. Michelle wa seen by neurosurgery and not a candidate and being planned for epidural.Jackelyn is not able to do much activity becaue of pain. He has been having fever nad being tested for covid three times and has been negative and now on abx. er course (1) VS wnl, WBC 13.2, Ferr 2975, AST/ALT 197/866 --> 177/889, Alk P 389 --> 414, LDH 332, CRP 12.3 (2) Decadron 10 mg, IV Toradol 30, Valium 5 mg (3) Imaging studies as follows: * CT chest: Bibasal atelectatic changes, minimal b/l pleural effusion; cannot r/o superimposed pna; small pericardial effusion along inf margin of heart, hepatosplenomegaly * CTAP: No acute process * CT L-spine: L5-S1 minimal central/L paracentral disc bulge and min L paracentral posterior spur formation w/o gross nerve root impingement; L4-L5 level there is questionable min central disc bulge w/o nerve root impingement Given pt's acute transaminitis and recent use of Tylenol, poison control was contacted by ED team with recommendation for no further intervention and to avoid hepatoxic agents. 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 but since start of symptoms, has been staying with parents Allergies No Known Allergies Allergy (Verified 10/10/19 00:48) HOME MEDICATIONS: Home Medications Medication Instructions Recorded NK [No Known Home Medication] 10/10/19 ROS,FH, SH reviewd in chart NEUROLOGICAL EXAMINATION Alert oriented x 3, neck is supple vss, afebrile eomi, pupils reactive strength is normal in upper extremity THere is slr is positive on left side both legs hip flexion , extension, planter flexion and extension is normal both aries e left leg knee flexion and extension diminished effort reflex are symmetrical mri of L spine reviewed neurosurgery and pain management consult reviewed Assessment/Plan Left L5-S1 radiculopathy, no evidence of cord compression or cauda equina syndrome. Ghazalanet has been on steroid and now on gabepntin, pt and waiting for ORALIA PLAN - increase gabapnetin to 600 mg po tid - zanaflex prn - nsadi prn and PT - Waiting for ORALIA Thanking you so much Dylon Botello MD
[2019-10-12] MEDS ORDERED: PT OWN MED DRAWER 7, Y5N ONE ×2 (11:47→21:10)
[2019-10-12] MEDS: ASCORBIC ACID 250 MG TABLET (FP) PO SCH ×2 (11:47→21:27)
--- NOTE | 2019-10-12 12:51 | CON.ID ---
Consult Consult Specialty:: infectious diseases Referred by:: Reason for Consultation:: pneumonia,back pain,fevres - History of Present Illness Chief Complaint: fevers back pain History of Present Illness: 24M w/ no pmhx presents with complaints of LLE pain since last Wednesday (10/07/19). He woke up that morning and had extreme difficulty getting out of bed due to pain that started in his L glut radiating down the back of his R leg to his toes. Additionally, he complains of numbness and weakness in his L leg. States he required use of a crutch to help him walk around. Denies ever having this type of pain before although he does have a history of bulging discs in the L-spine after which he completed PT. On the same day of the start of his symptoms, he went to the ED and was discharged on Robaxin and Solumedrol. Neither medication gave him symptomatic relief so he presented today for further evaluation. He states the LLE pain is worse when coughing, sitting, and walking. At baseline, he is an active young male who usually exercises everyday (biking, running, weightlifting), however his usual physical activity level was interrupted 2 weeks ago when he developed a fever and productive cough. Since 2 weeks prior, he had been taking Tylenol for the fever, reports 1000mg Q6H. He took Tylenol for his more recent LLE pain as well, but again with no symptomatic relief. Denies any injury or trauma to leg. Currently, denies headaches, dizziness, f/c, chest pain, sob, abd pain, urinary/bowel symptoms, bowel/bladder incontinence. Denies sick contacts. patient seen by neurosurgery denies any night sweats - History Source History Provided By: Patient Limitations to Obtaining History: No Limitations - Smoking History Smoking history: Never smoked Have you smoked in the past 12 months: No Home Medications - Allergies Allergies/Adverse Reactions: Allergies Allergy/AdvReac Type Severity Reaction Status Date / Time No Known Allergies Allergy Verified 10/10/19 00:48 - Home Medications Home Medications: Ambulatory Orders Methocarbamol [Robaxin -] 500 mg PO BID PRN 10/11/19 Review of Systems - Review of Systems Constitutional: reports: Fever, Other Eyes: reports: No Symptoms HENT: reports: No Symptoms Neck: reports: No Symptoms Cardiovascular: reports: No Symptoms Respiratory: reports: Cough Gastrointestinal: reports: No Symptoms Genitourinary: reports: No Symptoms Musculoskeletal: reports: Back Pain Integumentary: reports: No Symptoms Neurological: reports: No Symptoms Endocrine: reports: No Symptoms Hematology/Lymphatic: reports: No Symptoms Psychiatric: reports: No Symptoms Physical Exam Vital Signs: Vital Signs Temperature 98.0 F 10/12/19 09:25 Pulse Rate 67 10/12/19 09:25 Respiratory Rate 18 10/12/19 09:25 Blood Pressure 117/67 10/12/19 09:25 O2 Sat by Pulse Oximetry (%) 98 10/12/19 10:00 Constitutional: Yes: Calm, Mild Distress Eyes: Yes: Conjunctiva Clear HENT: Yes: Atraumatic, Normocephalic Neck: Yes: Supple, Trachea Midline Cardiovascular: Yes: Regular Rate and Rhythm Respiratory: Yes: Regular, CTA Bilaterally Gastrointestinal: Yes: Normal Bowel Sounds, Soft Musculoskeletal: Yes: WNL Extremities: Yes: WNL Neurological: Yes: Alert, Oriented Labs: CBC, BMP 10/12/19 07:30 10/12/19 07:30 Imaging - Results Chest X-ray: Report Reviewed, Image Reviewed Cat Scan: Report Reviewed, Image Reviewed MRI: Report Reviewed, Image Reviewed Assessment/Plan this patient coming in wiht severe back pain and also fevers and cough patient received zosyn plan changed abx to zithro and ceftriaxone back as per neurosurgery quantiferon await for all results rest as per the team
[2019-10-12] MEDS ORDERED: cefTRIAXone SODIUM 1 GM VIAL ONE (13:22)
[2019-10-12] MEDS: CEFTRIAXONE 1 GM in DEXTROSE 5%-WATER - 50 ML IVPB SCH (13:23)
[2019-10-12] MEDS: AZITHROMYCIN 500 MG TABLET PO SCH (13:23)
[2019-10-12] MEDS: GABAPENTIN 300 MG CAPSULE PO SCH ×2 (14:10→21:27)
--- NOTE | 2019-10-12 14:12 | PN ---
Physical Exam: SUBJECTIVE: Patient seen and examined at bedside. No acute events overnight. He reports no pain at rest but severe pain with any movements of his LLE. He denies any fever, chills, hemoptysis, hematuria, chest pain, cough, SOB. He reports 2 weeks ago he experienced fever, night sweats and cough, but no hemoptysis. OBJECTIVE: Vital Signs Period Temp Pulse Resp BP Sys/Sims Pulse Ox Last 24 Hr 97.7 F-98.4 F 52-83 16-18 115-140/62-76 96-99 GENERAL: The patient is awake, alert, and fully oriented, in acute distress. HEAD: Normal with no signs of trauma. EYES: PERRL, extraocular movements intact, sclera anicteric, conjunctiva clear. No ptosis. ENT: Ears normal, nares patent, oropharynx clear without exudates, moist mucous membranes. NECK: Trachea midline, full range of motion, supple. LUNGS: Breath sounds equal, clear to auscultation bilaterally, no wheezes, no crackles, no accessory muscle use. HEART: Regular rate and rhythm, S1, S2 without murmur, rub or gallop. ABDOMEN: Soft, nontender, nondistended, normoactive bowel sounds, no guarding, no rebound, no hepatosplenomegaly, no masses. EXTREMITIES: 2+ pulses, warm, well-perfused, no edema. able to move RLE, limited movement of LLE, due to pain NEUROLOGICAL: Cranial nerves II through XII grossly intact. Normal speech, gait not observed. Strength 4/5 all extremities, sensation intact in all extremities, negative babinski reflex PSYCH: Normal mood, normal affect. SKIN: Warm, dry, normal turgor, no rashes or lesions noted Laboratory Results - last 24 hr 10/10/19 10/11/19 10/12/19 05:00 15:24 02:50 WBC RBC Hgb Hct MCV MCH MCHC RDW Plt Count MPV Absolute Neuts (auto) Neutrophils % Lymphocytes % Monocytes % Eosinophils % Basophils % Nucleated RBC % D-Dimer Sodium Potassium Chloride Carbon Dioxide Anion Gap BUN Creatinine Est GFR (CKD-EPI)AfAm Est GFR (CKD-EPI)NonAf Random Glucose Calcium Phosphorus Magnesium Ferritin Total Bilirubin AST ALT Alkaline Phosphatase LD Total C-Reactive Protein Total Protein Albumin Acetaminophen < 2 COVID-19 (KAREN) Not detected Influenza A (Rapid) Negative Influenza B (Rapid) Negative 10/12/19 10/12/19 10/12/19 07:30 07:30 07:30 WBC 9.2 RBC 4.12 Hgb 12.4 Hct 36.8 MCV 89.4 MCH 30.1 MCHC 33.7 RDW 14.3 Plt Count 394 MPV 6.8 L Absolute Neuts (auto) 6.1 Neutrophils % 66.3 Lymphocytes % 20.6 Monocytes % 12.9 H Eosinophils % 0.0 Basophils % 0.2 Nucleated RBC % 0 D-Dimer 863 H Sodium 137 Potassium 4.6 Chloride 104 Carbon Dioxide 24 Anion Gap 9 BUN 19.5 H Creatinine 0.8 Est GFR (CKD-EPI)AfAm 146.96 Est GFR (CKD-EPI)NonAf 126.80 Random Glucose 104 Calcium 8.9 Phosphorus 4.1 Magnesium 2.5 H Ferritin 1758.7 H Total Bilirubin 1.0 AST 53 H ALT 439 H Alkaline Phosphatase 334 H LD Total 161 C-Reactive Protein 7.5 H Total Protein 7.3 Albumin 2.8 L Acetaminophen COVID-19 (KAREN) Influenza A (Rapid) Influenza B (Rapid) Active Medications Generic Name Dose Route Start Last Admin Trade Name Freq PRN Reason Stop Dose Admin Ascorbic Acid 250 mg 10/11/19 10:00 10/12/19 11:47 Vitamin C - PO 250 mg BID AMINA Administration Azithromycin 500 mg 10/12/19 13:00 10/12/19 13:23 Zithromax PO 500 mg DAILY AMINA Administration Benzocaine/Menthol 1 each 10/10/19 17:28 10/11/19 15:46 Cepacol Lozenge - MM 1 each PRN PRN Administration SORE THROAT Cholecalciferol 800 unit 10/11/19 10:00 10/12/19 10:25 Vitamin D3 - PO 800 unit DAILY AMINA Administration Diazepam 2 mg 10/10/19 14:00 10/12/19 06:20 Valium - PO 2 mg TID AMINA Administration Gabapentin 600 mg 10/12/19 14:00 Neurontin - PO TID AMINA Piperacillin Sod/Tazobactam 50 mls @ 100 mls/hr 10/11/19 14:15 10/12/19 10:26 Sod 3.375 gm/ Dextrose IVPB 10/12/19 14:14 100 mls/hr Q8H-IV AMINA Administration Protocol Ceftriaxone Sodium 1 gm/ 50 mls @ 200 mls/hr 10/12/19 13:00 10/12/19 13:23 Dextrose IVPB 200 mls/hr DAILY AMINA Administration Protocol Morphine Sulfate 2 mg 10/11/19 14:38 10/12/19 04:04 Morphine Sulfate IVPUSH 2 mg Q6H PRN Administration PAIN LEVEL 4 - 6 Zinc Sulfate 220 mg 10/11/19 10:00 10/12/19 10:26 Orazinc - PO 220 mg BID AMINA Administration IMAGING 10/10/19: * CT chest: Bibasal atelectatic changes, minimal b/l pleural effusion; cannot r/o superimposed pna; small pericardial effusion along inf margin of heart, hepatosplenomegaly * CTAP: No acute process * CT L-spine: L5-S1 minimal central/L paracentral disc bulge and min L paracentral posterior spur formation w/o gross nerve root impingement; L4-L5 level there is questionable min central disc bulge w/o nerve root impingement MRI L Spine 10/11/19- DJD L4/5, L5/S1. L5/S1 disc herniation with extruded disc obliterating the left epidural recesses with mass effect on the L S1 nerve root; L4/5midline herniation lateralizing toward the R with indentation on the R L5 nerve root. no evidence of septic spondylitis, epidural abscess or praraspinal masses. ASSESSMENT/PLAN: 24M w/ no pmhx presents with complaints of LLE pain and weakness with infrequent unproductive cough. #LLE weakness/pain - Possible nerve root impairment vs abscess vs compression - CT L-spine done; results noted above. - Lumbar MRI- as noted above - Neurosurg consulted (Dr. mario), rec: epidural steroid injection and oral anti-inflammatory medications no acute neurosurgical intervention is indicated - Physical therapy on board - pain management (Dr. Flynn) consulted, waiting scheduling for L transforminal epidural injection L4/5 - Neurology consulted (Dr. dumont), recs: increase gabapnetin to 600 mg po tid zanaflex prn nsadi prn and PT - will hold off on Decadron for now #Elavated inflamatory markers #Elevated D-dimers # possible pneumonia - Covid negative x 3, Flu negative - D-dimer 1028, Ferritin 2975, LD 332, CRP 12.3 - Coninue to monitor v/s - CTA negative for PE, Duplex negative for DVT - No Disciitis or abscess on MRI L Spine, - pending MRI T Spine - Blood Cx pending - Urine culture-No growth - ID consulted, Dr. Cox. changed abx to zithro and ceftriaxone - Pending viral pannel - pending Quantiferon #Acute Transaminitis #CBD Dilation: - AST/ALT 177/889 - v/s are stable - Cont to trend LFTs - GI consulted, Dr. Hernandez, recs: When stable, MRCP for further eval - f/u hepatitis panel - CTAB reviewed: hepatomegaly noted - Abdomen u/s ordered: Mild fatty infiltration vs hepatocellular disease. Mild Dilation of CBD 7mm w/o gallstones - Avoid hepatotoxic drugs #Pericardial effusion on CT - Pending echo eval #Prophylaxis - DVT: pending Pain management evaluation and epidural injection - will give GI PPX protonix daily #FEN - No standing fluids - Continue to monitor electrolytes - Regular diet Dispo - Continue to monitor in med-surg Visit type - Emergency Visit Emergency Visit: Yes ED Registration Date: 10/10/19 Care time: The patient presented to the Emergency Department on the above date and was hospitalized for further evaluation of their emergent condition. - New Patient This patient is new to me today: Yes Date on this admission: 10/15/19 - Critical Care Critical Care patient: No - Discharge Referral Referred to [facility] No ATTENDING PHYSICIAN STATEMENT I saw and evaluated the patient. I reviewed the resident's note and discussed the case with the resident. I agree with the resident's findings and plan as documented. SUBJECTIVE: OBJECTIVE: ASSESSMENT AND PLAN:
--- NOTE | 2019-10-12 15:08 | PN ---
Teaching Attending Note Name of Resident: Min Easley ATTENDING PHYSICIAN STATEMENT I saw and evaluated the patient. I reviewed the resident's note and discussed the case with the resident. I agree with the resident's findings and plan as documented. SUBJECTIVE: Ongoing pain LLE limiting range of motion. Pain in LLE on moving RLE. No fever/chills. No sensory loss. OBJECTIVE: Afebrile, Hemodynamically stable. Last Vital Signs Temp Pulse Resp BP Pulse Ox 97.6 F 80 18 123/68 97 10/12/19 14:37 10/12/19 14:37 10/12/19 14:37 10/12/19 14:37 10/12/19 14:37 Heart - S1, S2, RRR Lungs - clear to auscultation Abdomen - soft, non-tender. Bowel Sounds normal. Extremities - No edema, no calf tenderness. MS - Mild tenderness over LS spine. Neuro - AAO x 3. Severe pain limiting neurological exam LEs. Appears to have good tone and strength distal to knee. Laboratory Results - last 24 hr 10/11/19 10/12/19 10/12/19 15:24 02:50 07:30 WBC RBC Hgb Hct MCV MCH MCHC RDW Plt Count MPV Absolute Neuts (auto) Neutrophils % Lymphocytes % Monocytes % Eosinophils % Basophils % Nucleated RBC % D-Dimer 863 H Sodium Potassium Chloride Carbon Dioxide Anion Gap BUN Creatinine Est GFR (CKD-EPI)AfAm Est GFR (CKD-EPI)NonAf Random Glucose Calcium Phosphorus Magnesium Ferritin Total Bilirubin AST ALT Alkaline Phosphatase LD Total C-Reactive Protein Total Protein Albumin Acetaminophen < 2 Influenza A (Rapid) Negative Influenza B (Rapid) Negative 10/12/19 10/12/19 07:30 07:30 WBC 9.2 RBC 4.12 Hgb 12.4 Hct 36.8 MCV 89.4 MCH 30.1 MCHC 33.7 RDW 14.3 Plt Count 394 MPV 6.8 L Absolute Neuts (auto) 6.1 Neutrophils % 66.3 Lymphocytes % 20.6 Monocytes % 12.9 H Eosinophils % 0.0 Basophils % 0.2 Nucleated RBC % 0 D-Dimer Sodium 137 Potassium 4.6 Chloride 104 Carbon Dioxide 24 Anion Gap 9 BUN 19.5 H Creatinine 0.8 Est GFR (CKD-EPI)AfAm 146.96 Est GFR (CKD-EPI)NonAf 126.80 Random Glucose 104 Calcium 8.9 Phosphorus 4.1 Magnesium 2.5 H Ferritin 1758.7 H Total Bilirubin 1.0 AST 53 H ALT 439 H Alkaline Phosphatase 334 H LD Total 161 C-Reactive Protein 7.5 H Total Protein 7.3 Albumin 2.8 L Acetaminophen Influenza A (Rapid) Influenza B (Rapid) Current Medications Generic Name Dose Route Start Last Admin Trade Name Freq PRN Reason Stop Dose Admin Ascorbic Acid 250 mg 10/11/19 10:00 10/12/19 11:47 Vitamin C - PO 250 mg BID AMINA Administration Azithromycin 500 mg 10/12/19 13:00 10/12/19 13:23 Zithromax PO 500 mg DAILY AMINA Administration Benzocaine/Menthol 1 each 10/10/19 17:28 10/11/19 15:46 Cepacol Lozenge - MM 1 each PRN PRN Administration SORE THROAT Cholecalciferol 800 unit 10/11/19 10:00 10/12/19 10:25 Vitamin D3 - PO 800 unit DAILY AMINA Administration Diazepam 2 mg 10/10/19 14:00 10/12/19 14:10 Valium - PO 2 mg TID AMINA Administration Gabapentin 600 mg 10/12/19 14:00 10/12/19 14:10 Neurontin - PO 300 mg TID AMINA Administration Ceftriaxone Sodium 1 gm/ 50 mls @ 200 mls/hr 10/12/19 13:00 10/12/19 13:23 Dextrose IVPB 200 mls/hr DAILY AMINA Administration Protocol Morphine Sulfate 2 mg 10/11/19 14:38 10/12/19 04:04 Morphine Sulfate IVPUSH 2 mg Q6H PRN Administration PAIN LEVEL 4 - 6 Zinc Sulfate 220 mg 10/11/19 10:00 10/12/19 10:26 Orazinc - PO 220 mg BID AMINA Administration Home Medications Medication Instructions Recorded Methocarbamol [Robaxin -] 500 mg PO BID PRN 10/11/19 ASSESSMENT AND PLAN: 24 year old male with history of DJD Spine with disc disease, complains of 4 day history of LLE pain starting in his L glut radiating down the back of his L leg to his toes. Recent febrile illness and sinus congestion/cough, now resolved. CT chest: Bibasal atelectatic changes, minimal b/l pleural effusion; cannot r/o superimposed pna; small pericardial effusion along inferior margin of heart, hepatosplenomegaly CTA/P: No acute process CT L-spine: L5-S1 minimal central/L paracentral disc bulge and min L paracentral posterior spur formation w/o gross nerve root impingement; L4-L5 level there is questionable min central disc bulge w/o nerve root impingement 1. Acute Disc Herniation with radiculopathy MRI L Spine - DJD L4/5, L5/S1. L5/S1 disc herniation with extruded disc obliterating the left epidural recesses with mass effect on the L S1 nerve root; L4/5midline herniation lateralizing toward the R with indentation on the R L5 nerve root. no evidence of septic spondylitis, epidural abscess or praraspinal masses. Given Decadron, Valium, Gabapentin, Morphine PRN Neurosurgery recommends spinal injection. Neurology evaluated and recommended increasing Gabapentin dosing/Zanaflex. Currently on Valium. Pain Management consulted - awaiting scheduling for L transforminal epidural injection L4/5 2. ?Infective/Inflammatory process ?Pneumonia DDIMER/CRP/Ferritin/ESR elevated CTA chest - no PE, bibasilar atelectasis/Duplex LEs - No DVT. No Disciitis or abscess on MRI L Spine, MRI T Spine ordered COVID PCR negative/Flu negative. Viral panel pending. Urine Cx negative. Blood Cx pending. Afebrile, Hemodynamically Stable - Zosyn de-escalated to Ceftriaxone/Azithromycin by ID. 3. Elevated Transaminases with CBD dilatation - LFTs improving, no abdominal symptoms or fever GI consulted for further evaluation and recommends MRCP. 4. Pericardial effusion on CT - Echo ordered. DVT Px - Will hold Lovenox pending Pain management evaluation and epidural injection.
--- NOTE | 2019-10-12 16:01 | ECHO ---
Name: CORINNE BELTRANUL Exam:Adult Echocardiogram Study Date: 10/12/2019 12:47 PM Age: 24 yrs Reason For Study: Pericardial Effusion seen on CT Chest Height: 72 in Weight: 220 lb BSA: 2.2 m2 MMode/2D Measurements & Calculations IVSd: 1.1 cm Ao root diam: 4.0 cm LVIDd: 4.7 cm LA dimension: 2.7 cm LVIDs: 3.1 cm ACS: 2.1 cm LVPWd: 1.1 cm EDV(Teich): 104.3 ml LVOT diam: 2.3 cm ESV(Teich): 39.3 ml LAV (MOD-bp): 45.0 ml TAPSE: 2.5 cm RV S Doron: 14.8 cm/sec Doppler Measurements & Calculations MV E max doron: 79.0 cm/sec Ao V2 max: 103.2 cm/sec MV A max doron: 56.3 cm/sec Ao max P.3 mmHg MV E/A: 1.4 Ao V2 mean: 67.4 cm/sec MV dec time: 0.24 sec Ao mean P.1 mmHg Ao V2 VTI: 19.2 cm MELISA(I,D): 3.2 cm2 MELISA(V,D): 3.8 cm2 LV V1 max P.9 mmHg SV(LVOT): 61.5 ml LV V1 mean P.7 mmHg LV V1 max: 98.2 cm/sec LV V1 mean: 60.0 cm/sec LV V1 VTI: 15.4 cm TR max doron: 221.3 cm/sec PA V2 max: 96.4 cm/sec TR max P.6 mmHg PA max P.7 mmHg PA acc slope: 429.5 cm/sec2 PA acc time: 0.17 sec PI end-d doron: 77.4 cm/sec Med Peak E' Doron: 8.5 cm/sec Med E/e': 9.3 Lat Peak E' Doron: 14.5 cm/sec Lat E/e': 5.4 PA pr(Accel): 4.5 mmHg Tech Comments Patient scanned supine due to pinched nerve. Procedure A complete two-dimensional transthoracic echocardiogram was performed (2D, M-mode, Doppler and color flow Doppler). Left Ventricle The left ventricular size, thickness and function are normal. Ejection Fraction = 60-65%. The left ve ntricular wall motion is normal. Right Ventricle The right ventricle is normal in size and function. Atria Normal left and right atrial size and function. Mitral Valve There is no mitral regurgitation noted. Tricuspid Valve There is trace tricuspid regurgitation. There was insufficient TR detected to calculate RV systolic p ressure. Aortic Valve No hemodynamically significant valvular aortic stenosis. No aortic regurgitation is present. Pulmonic Valve There is no pulmonic valvular regurgitation. Great Vessels Mild aortic root dilatation. Pericardium/Pleura There is no pericardial effusion. Interpretation Summary The left ventricular size, thickness and function are normal The right ventricle is normal in size and function. There is trace tricuspid regurgitation. Mild aortic root dilatation. MD Juliano Escamilla 10/12/2019 04:01 PM
--- NOTE | 2019-10-12 20:06 | PN.GI ---
GI Progress Note Subjective: denies abdominal pain, nausea and vomiting, still has bask yen last bowel movement was 2 days ago, refused laxatives at this time LFTS down mathew trend Abdominal ultrasound--dilated CBD to 7mm - Objective Vital Signs: Vital Signs Temperature 97.6 F 10/12/19 14:37 Pulse Rate 80 10/12/19 14:37 Respiratory Rate 18 10/12/19 14:37 Blood Pressure 123/68 10/12/19 14:37 O2 Sat by Pulse Oximetry (%) 97 10/12/19 14:37 Constitutional: Well Nourished Eyes: Yes: Conjunctiva Clear HENT: Yes: Atraumatic Neck: Yes: Trachea Midline Cardiovascular: Yes: Regular Rate and Rhythm Respiratory: Yes: CTA Bilaterally ...Palpate: Yes: Soft. No: Firm/Rigid, Guarding, Hepatomegaly, Mass, Pulsatile Mass, Splenomegaly, Tenderness Labs: CBC, BMP 10/12/19 07:30 10/12/19 07:30 INR, PTT INR 1.07 (0.83-1.09) 10/10/19 04:03 Problem List - Problems (1) Dilated cbd, acquired Assessment/Plan: R> doubt CBD stone MRCP once medically improved Code(s): K83.8 - OTHER SPECIFIED DISEASES OF BILIARY TRACT (2) Elevated liver enzymes Assessment/Plan: r/o secondary to drug toxicity R> serial LFTS Code(s): R74.8 - ABNORMAL LEVELS OF OTHER SERUM ENZYMES
[2019-10-12] MEDS: BENZOCAINE/MENTH/CETYLPYRD CL 1 EACH LOZENGE MM PRN (21:25)
[2019-10-13] MEDS: diazePAM 2 MG TABLET PO SCH ×3 (06:05→21:12)
[2019-10-13] MEDS: GABAPENTIN 300 MG CAPSULE PO SCH ×3 (06:05→21:12)
[2019-10-13] MEDS: MORPHINE SULFATE 2 MG/ML VIAL IVPUSH PRN ×3 (08:10→22:17)
[2019-10-13 08:47] LABS: BASO % 0.2 % (0-2.0); EOS % 0.1 % (0-4.5); HEMATOCRIT 36.8 % (35.4-49); HEMOGLOBIN 12.3 GM/dL (11.7-16.9); LYMPH % 30.6 % (8-40); MCH 29.7 pg (25.7-33.7); MCHC 33.5 g/dl (32.0-35.9); MEAN CELL VOLUME 88.7 fl (80-96); MEAN PLT VOLUME 6.7 fl (7.5-11.1); MONO % 12.2 % (3.8-10.2); NEUT % 56.9 % (42.8-82.8); PLATELET COUNT 371 K/MM3 (134-434); RBC 4.15 M/mm3 (4.00-5.60); RDW 13.9 % (11.9-15.9); WHITE BLOOD COUNT 8.3 K/mm3 (4.0-10.0)
[2019-10-13 09:12] LABS: ALBUMIN 2.6 g/dl (3.4-5.0); BLOOD UREA NITROGEN 20.6 mg/dL (7-18); CALCIUM 8.7 mg/dL (8.5-10.1); CREATININE 0.9 mg/dL (0.55-1.3); MAGNESIUM 2.1 mg/dL (1.8-2.4); PHOSPHOROUS 2.9 mg/dL (2.5-4.9); POTASSIUM 4.5 mmol/L (3.5-5.1); TOT PROT 6.9 g/dl (6.4-8.2)
--- NOTE | 2019-10-13 09:55 | PN ---
Progress Note, Physician History of Present Illness: back pain severe - Current Medication List Current Medications: Active Medications Ascorbic Acid (Vitamin C -) 250 mg PO BID [facility] Last Admin: 10/12/19 21:27 Dose: 250 mg Documented by: Azithromycin (Zithromax) 500 mg PO DAILY [facility] Last Admin: 10/12/19 13:23 Dose: 500 mg Documented by: Benzocaine/Menthol (Cepacol Lozenge -) 1 each MM PRN PRN PRN Reason: SORE THROAT Last Admin: 10/12/19 21:25 Dose: 1 each Documented by: Cholecalciferol (Vitamin D3 -) 800 unit PO DAILY [facility] Last Admin: 10/12/19 10:25 Dose: 800 unit Documented by: Diazepam (Valium -) 2 mg PO TID [facility] Last Admin: 10/13/19 06:05 Dose: 2 mg Documented by: Gabapentin (Neurontin -) 600 mg PO TID [facility] Last Admin: 10/13/19 06:05 Dose: 600 mg Documented by: Ceftriaxone Sodium 1 gm/ (Dextrose) 50 mls @ 200 mls/hr IVPB DAILY [facility]; Protocol Last Admin: 10/12/19 13:23 Dose: 200 mls/hr Documented by: Morphine Sulfate (Morphine Sulfate) 2 mg IVPUSH Q6H PRN PRN Reason: PAIN LEVEL 4 - 6 Last Admin: 10/13/19 08:10 Dose: 2 mg Documented by: Zinc Sulfate (Orazinc -) 220 mg PO BID [facility] Last Admin: 10/12/19 21:27 Dose: 220 mg Documented by: - Objective Vital Signs: Vital Signs Temperature 99.7 F H 10/13/19 05:10 Pulse Rate 77 10/13/19 05:10 Respiratory Rate 20 10/13/19 05:10 Blood Pressure 121/65 10/13/19 05:10 O2 Sat by Pulse Oximetry (%) 88 L 10/13/19 05:10 Constitutional: Yes: Calm, Mild Distress Cardiovascular: Yes: S1, S2 Respiratory: Yes: Regular, CTA Bilaterally Gastrointestinal: Yes: Normal Bowel Sounds, Soft Musculoskeletal: Yes: Back Pain Neurological: Yes: Alert, Oriented Psychiatric: Yes: Alert, Oriented Labs: CBC, BMP 10/13/19 08:10 10/13/19 08:10 INR, PTT INR 1.07 (0.83-1.09) 10/10/19 04:03 Assessment/Plan this patient coming in wiht severe back pain and also fevers and cough patient received zosyn plan continue abx spine has seen the patient await for all results rest as per the team
[2019-10-13] MEDS ORDERED: PT OWN MED DRAWER 7, Y5N ONE ×3 (10:10→21:11)
[2019-10-13] MEDS ORDERED: cefTRIAXone SODIUM 1 GM VIAL ONE (10:10)
[2019-10-13] MEDS: ZINC SULFATE 220 MG CAPSULE (FP) PO SCH ×2 (10:11→21:12)
[2019-10-13] MEDS: CHOLECALCIFEROL (VIT D3) 400 UNIT (10 MCG) TABLET PO SCH (10:11)
[2019-10-13] MEDS ORDERED: DEXTROSE 5%-WATER - 50 ML IVPB ONE (10:11)
[2019-10-13] MEDS: CEFTRIAXONE 1 GM in DEXTROSE 5%-WATER - 50 ML IVPB SCH (10:12)
[2019-10-13] MEDS: ASCORBIC ACID 250 MG TABLET (FP) PO SCH ×2 (10:12→21:12)
[2019-10-13] MEDS: AZITHROMYCIN 500 MG TABLET PO SCH (10:13)
[2019-10-13] MEDS ORDERED: MORPHINE SULFATE 2 MG/ML VIAL IVPUSH PRN (11:34)
[2019-10-13] MEDS: methylPREDNISolone 4 MG TABLET PO SCH ×2 (13:27→21:13)
--- NOTE | 2019-10-13 13:35 | PN.GI ---
GI Progress Note Subjective: main complaint is lower back pain radiating to left leg No abdominal pain LFTs improving - Objective Vital Signs: Vital Signs Temperature 98.0 F 10/13/19 09:07 Pulse Rate 85 10/13/19 09:07 Respiratory Rate 20 10/13/19 09:07 Blood Pressure 116/70 10/13/19 09:07 O2 Sat by Pulse Oximetry (%) 94 L 10/13/19 10:00 Constitutional: Calm Eyes: No: Sclera Icterus Cardiovascular: Yes: Regular Rate and Rhythm Respiratory: Yes: CTA Bilaterally Gastrointestinal Inspection: No: Distention ...Auscultate: Yes: Normoactive Bowel Sounds ...Palpate: Yes: Soft. No: Hepatomegaly, Splenomegaly, Tenderness ...Percussion: No: Tympanitic Edema: No (No LE edema) Neurological: Yes: Alert Labs: CBC, BMP 10/13/19 08:10 10/13/19 08:10 INR, PTT INR 1.07 (0.83-1.09) 10/10/19 04:03 Hepatic Panel Total Bilirubin 1.0 mg/dL (0.2-1) 10/13/19 08:10 Direct Bilirubin 0.3 mg/dL (0.0-0.2) H 10/11/19 05:44 AST 44 U/L (15-37) H 10/13/19 08:10 ALT 315 U/L (13-61) H 10/13/19 08:10 Alkaline Phosphatase 295 U/L (45-117) H 10/13/19 08:10 Albumin 2.6 g/dl (3.4-5.0) L 10/13/19 08:10 Problem List - Problems (1) Elevated liver enzymes Assessment/Plan: Continued improvement, asymptomatic Suspect drug induced liver injury monitor LFTs Awaiti hepatitits serologies Avoid hepatotoxic agents MRCP when back pain complaints permit to evl mildly dilated CBD Code(s): R74.8 - ABNORMAL LEVELS OF OTHER SERUM ENZYMES
--- NOTE | 2019-10-13 14:29 | PN ---
Physical Exam: SUBJECTIVE: Patient seen and examined at bedside. He reports worsening of his pain and reports that he cannot tolerate his pain until wednesday for his epidural shot. He denies any active fever, chills, night sweats, nausea, vomiting, abdominal pain. OBJECTIVE: Vital Signs Period Temp Pulse Resp BP Sys/Sims Pulse Ox Last 24 Hr 97.5 F-99.7 F 77-89 18-20 116-126/65-70 88-98 GENERAL: The patient is awake, alert, and fully oriented, in acute distress. HEAD: Normal with no signs of trauma. EYES: PERRL, extraocular movements intact, sclera anicteric, conjunctiva clear. No ptosis. ENT: Ears normal, nares patent, oropharynx clear without exudates, moist mucous membranes. NECK: Trachea midline, full range of motion, supple. LUNGS: Breath sounds equal, clear to auscultation bilaterally, no wheezes, no crackles, no accessory muscle use. HEART: Regular rate and rhythm, S1, S2 without murmur, rub or gallop. ABDOMEN: Soft, nontender, nondistended, normoactive bowel sounds, no guarding, no rebound, no hepatosplenomegaly, no masses. EXTREMITIES: 2+ pulses, warm, well-perfused, no edema. able to move RLE, limited movement of LLE, due to pain NEUROLOGICAL: Cranial nerves II through XII grossly intact. Normal speech, gait not observed. Strength 4/5 all extremities, sensation intact in all extremities, negative babinski reflex PSYCH: Normal mood, normal affect. SKIN: Warm, dry, normal turgor, no rashes or lesions noted Laboratory Results - last 24 hr 10/11/19 10/13/19 10/13/19 20:00 08:10 08:10 WBC 8.3 RBC 4.15 Hgb 12.3 Hct 36.8 MCV 88.7 MCH 29.7 MCHC 33.5 RDW 13.9 Plt Count 371 MPV 6.7 L Absolute Neuts (auto) 4.7 Neutrophils % 56.9 Lymphocytes % 30.6 D Monocytes % 12.2 H Eosinophils % 0.1 D Basophils % 0.2 Nucleated RBC % 0 Sodium 136 Potassium 4.5 Chloride 102 Carbon Dioxide 29 Anion Gap 5 L BUN 20.6 H Creatinine 0.9 Est GFR (CKD-EPI)AfAm 140.02 Est GFR (CKD-EPI)NonAf 120.81 Random Glucose 81 Calcium 8.7 Phosphorus 2.9 Magnesium 2.1 Total Bilirubin 1.0 AST 44 H ALT 315 H Alkaline Phosphatase 295 H Total Protein 6.9 Albumin 2.6 L Hep A IgM Ab Confirm Negative Hep Bs Antigen Negative Hep B Core IgM Ab Negative Hepatitis C Ab (EIA) <0.1 Active Medications Generic Name Dose Route Start Last Admin Trade Name Freq PRN Reason Stop Dose Admin Ascorbic Acid 250 mg 10/11/19 10:00 10/13/19 10:12 Vitamin C - PO 250 mg BID AMINA Administration Azithromycin 500 mg 10/12/19 13:00 10/13/19 10:13 Zithromax PO 500 mg DAILY AMINA Administration Benzocaine/Menthol 1 each 10/10/19 17:28 10/12/19 21:25 Cepacol Lozenge - MM 1 each PRN PRN Administration SORE THROAT Cholecalciferol 800 unit 10/11/19 10:00 10/13/19 10:11 Vitamin D3 - PO 800 unit DAILY AMINA Administration Diazepam 2 mg 10/10/19 14:00 10/13/19 13:27 Valium - PO 2 mg TID AMINA Administration Gabapentin 600 mg 10/12/19 14:00 10/13/19 13:27 Neurontin - PO 600 mg TID AMINA Administration Ceftriaxone Sodium 1 gm/ 50 mls @ 200 mls/hr 10/12/19 13:00 10/13/19 10:12 Dextrose IVPB 200 mls/hr DAILY AMINA Administration Protocol Methylprednisolone 8 mg 10/13/19 14:00 10/13/19 13:27 Medrol - PO 10/14/19 06:01 8 mg TID AMINA Administration Morphine Sulfate 2 mg 10/13/19 11:55 Morphine Sulfate IVPUSH Q6H PRN PAIN LEVEL 4 - 6 Zinc Sulfate 220 mg 10/11/19 10:00 10/13/19 10:11 Orazinc - PO 220 mg BID AMINA Administration IMAGING 10/10/19: * CT chest: Bibasal atelectatic changes, minimal b/l pleural effusion; cannot r/o superimposed pna; small pericardial effusion along inf margin of heart, hepatosplenomegaly * CTAP: No acute process * CT L-spine: L5-S1 minimal central/L paracentral disc bulge and min L paracentral posterior spur formation w/o gross nerve root impingement; L4-L5 level there is questionable min central disc bulge w/o nerve root impingement MRI L Spine 10/11/19- DJD L4/5, L5/S1. L5/S1 disc herniation with extruded disc o bliterating the left epidural recesses with mass effect on the L S1 nerve root; L4/5midline herniation lateralizing toward the R with indentation on the R L5 nerve root. no evidence of septic spondylitis, epidural abscess or praraspinal masses. ASSESSMENT/PLAN: 24M w/ no pmhx presents with complaints of LLE pain and weakness with infrequent unproductive cough. #LLE weakness/pain - Possible nerve root impairment vs abscess vs compression - CT L-spine done; results noted above. - Lumbar MRI- as noted above - Neurosurg consulted (Dr. mario), rec: epidural steroid injection and oral anti-inflammatory medications no acute neurosurgical intervention is indicated - Physical therapy on board - pain management (Dr. Flynn) consulted, Can schedule on Wednesday for L transforminal epidural injection L4/5 Harshad Mayen is consulted for Possible Epidural injection for Wednesday. - Neurology consulted (Dr. dumont), recs: increase gabapnetin to 600 mg po tid zanaflex prn nsadi prn and PT - Starting Medrol dosepak #Elavated inflamatory markers #Elevated D-dimers # Pneumonia - Covid negative x 3, Flu negative - D-dimer 1028, Ferritin 2975, LD 332, CRP 12.3 - Coninue to monitor v/s - CTA negative for PE,-Bibasilar atelectasis, Duplex negative for DVT - No Disciitis or abscess on MRI L Spine, - pending MRI T Spine - Blood Cx pending - Urine culture-No growth - ID consulted, Dr. Cox. changed abx to zithro and ceftriaxone - Pending viral pannel - pending Quantiferon #Acute Transaminitis #CBD Dilation: - AST/ALT 177/889 - v/s are stable - Cont to trend LFTs - GI consulted, Dr. Hernandez, recs: When stable, MRCP for further eval - f/u hepatitis panel - CTAB reviewed: hepatomegaly noted - Abdomen u/s ordered: Mild fatty infiltration vs hepatocellular disease. Mild Dilation of CBD 7mm w/o gallstones - Avoid hepatotoxic drugs #Pericardial effusion on CT - -Echo: EF 60-65%, No evidence of pericardial effusion #Prophylaxis - DVT: pending Pain management evaluation and epidural injection - will give GI PPX protonix daily #FEN - No standing fluids - Continue to monitor electrolytes - Regular diet Dispo - Continue to monitor in med-surg Visit type - Emergency Visit Emergency Visit: Yes ED Registration Date: 10/10/19 Care time: The patient presented to the Emergency Department on the above date and was hospitalized for further evaluation of their emergent condition. - New Patient This patient is new to me today: Yes Date on this admission: 10/15/19 - Critical Care Critical Care patient: No - Discharge Referral Referred to [id number] No ATTENDING PHYSICIAN STATEMENT I saw and evaluated the patient. I reviewed the resident's note and discussed the case with the resident. I agree with the resident's findings and plan as documented. SUBJECTIVE: OBJECTIVE: ASSESSMENT AND PLAN:
--- NOTE | 2019-10-13 16:06 | PN ---
Teaching Attending Note Name of Resident: Min Easley ATTENDING PHYSICIAN STATEMENT I saw and evaluated the patient. I reviewed the resident's note and discussed the case with the resident. I agree with the resident's findings and plan as documented. SUBJECTIVE: Ongoing pain LLE limiting range of motion. No fever/chills. No sensory loss. OBJECTIVE: Afebrile, Hemodynamically stable. Emotional due to prolonged pain and difficulty with mobility. Last Vital Signs Temp Pulse Resp BP Pulse Ox 98.0 F 85 20 116/70 94 L 10/13/19 09:07 10/13/19 09:07 10/13/19 09:07 10/13/19 09:07 10/13/19 10:00 Heart - S1, S2, RRR Lungs - clear to auscultation Abdomen - soft, non-tender. Bowel Sounds normal. Extremities - No edema, no calf tenderness. MS - Mild tenderness over LS spine. Neuro - AAO x 3. Severe pain limiting neurological exam LLEs. Appears to have good tone and strength distal to knee. Laboratory Results - last 24 hr 10/11/19 10/13/19 10/13/19 20:00 08:10 08:10 WBC 8.3 RBC 4.15 Hgb 12.3 Hct 36.8 MCV 88.7 MCH 29.7 MCHC 33.5 RDW 13.9 Plt Count 371 MPV 6.7 L Absolute Neuts (auto) 4.7 Neutrophils % 56.9 Lymphocytes % 30.6 D Monocytes % 12.2 H Eosinophils % 0.1 D Basophils % 0.2 Nucleated RBC % 0 Sodium 136 Potassium 4.5 Chloride 102 Carbon Dioxide 29 Anion Gap 5 L BUN 20.6 H Creatinine 0.9 Est GFR (CKD-EPI)AfAm 140.02 Est GFR (CKD-EPI)NonAf 120.81 Random Glucose 81 Calcium 8.7 Phosphorus 2.9 Magnesium 2.1 Total Bilirubin 1.0 AST 44 H ALT 315 H Alkaline Phosphatase 295 H Total Protein 6.9 Albumin 2.6 L Hep A IgM Ab Confirm Negative Hep Bs Antigen Negative Hep B Core IgM Ab Negative Hepatitis C Ab (EIA) <0.1 Current Medications Generic Name Dose Route Start Last Admin Trade Name Freq PRN Reason Stop Dose Admin Ascorbic Acid 250 mg 10/11/19 10:00 10/13/19 10:12 Vitamin C - PO 250 mg BID AMINA Administration Azithromycin 500 mg 10/12/19 13:00 10/13/19 10:13 Zithromax PO 500 mg DAILY AMINA Administration Benzocaine/Menthol 1 each 10/10/19 17:28 10/12/19 21:25 Cepacol Lozenge - MM 1 each PRN PRN Administration SORE THROAT Cholecalciferol 800 unit 10/11/19 10:00 10/13/19 10:11 Vitamin D3 - PO 800 unit DAILY AMINA Administration Diazepam 2 mg 10/10/19 14:00 10/13/19 13:27 Valium - PO 2 mg TID AMINA Administration Gabapentin 600 mg 10/12/19 14:00 10/13/19 13:27 Neurontin - PO 600 mg TID AMINA Administration Ceftriaxone Sodium 1 gm/ 50 mls @ 200 mls/hr 10/12/19 13:00 10/13/19 10:12 Dextrose IVPB 200 mls/hr DAILY AMINA Administration Protocol Methylprednisolone 8 mg 10/13/19 14:00 10/13/19 13:27 Medrol - PO 10/14/19 06:01 8 mg TID AMINA Administration Methylprednisolone 4 mg 10/14/19 07:00 Medrol - PO 10/19/19 06:59 AM [facility] Methylprednisolone 4 mg 10/14/19 13:00 Medrol - PO 10/14/19 13:01 ONCE ONE Methylprednisolone 4 mg 10/14/19 17:00 Medrol - PO 10/14/19 17:01 ONCE ONE Methylprednisolone 8 mg 10/14/19 15:30 Medrol - PO 10/14/19 15:31 HS ONE Methylprednisolone 4 mg 10/15/19 13:00 Medrol - PO 10/15/19 13:01 ONCE ONE Methylprednisolone 4 mg 10/15/19 17:00 Medrol - PO 10/15/19 17:01 ONCE ONE Methylprednisolone 4 mg 10/16/19 13:00 Medrol - PO 10/16/19 13:01 ONCE ONE Methylprednisolone 4 mg 10/15/19 22:00 Medrol - PO 10/17/19 22:01 HS [facility] Morphine Sulfate 2 mg 10/13/19 11:55 Morphine Sulfate IVPUSH Q6H PRN PAIN LEVEL 4 - 6 Pantoprazole Sodium 40 mg 10/14/19 10:00 Protonix - PO DAILY [facility] Zinc Sulfate 220 mg 10/11/19 10:00 10/13/19 10:11 Orazinc - PO 220 mg BID AMINA Administration Home Medications Medication Instructions Recorded Methocarbamol [Robaxin -] 500 mg PO BID PRN 10/11/19 ASSESSMENT AND PLAN: 24 year old male with history of DJD Spine with disc disease, complains of 4 day history of LLE pain starting in his L glut radiating down the back of his L leg to his toes. Recent febrile illness and sinus congestion/cough, now resolved. CT chest: Bibasal atelectatic changes, minimal b/l pleural effusion; cannot r/o superimposed pna; small pericardial effusion along inferior margin of heart, hepatosplenomegaly CTA/P: No acute process CT L-spine: L5-S1 minimal central/L paracentral disc bulge and min L paracentral posterior spur formation w/o gross nerve root impingement; L4-L5 level there is questionable min central disc bulge w/o nerve root impingement 1. Acute Disc Herniation with radiculopathy MRI L Spine - DJD L4/5, L5/S1. L5/S1 disc herniation with extruded disc obliterating the left epidural recesses with mass effect on the L S1 nerve root; L4/5midline herniation lateralizing toward the R with indentation on the R L5 nerve root. no evidence of septic spondylitis, epidural abscess or praraspinal masses. Given Decadron IV x 2, Valium, Gabapentin, Morphine PRN. Will start Medrol dose pack. Neurosurgery recommends spinal injection but Pain Management physician not comfortable with this at this time for unclear reasons. Neurology evaluated and recommended increasing Gabapentin dosing/Zanaflex. Currently on Valium. Pain Management consulted - also recommends L transforminal epidural injection L4/5 but has not scheduled it. Neurosurgery informed re: pain management's reluctance to intervene currently, awaiting further response. 2. ?Infective/Inflammatory process - being treated for Pneumonia DDIMER/CRP/Ferritin/ESR elevated CTA chest - no PE, bibasilar atelectasis/Duplex LEs - No DVT. No Disciitis or abscess on MRI L Spine, MRI T Spine ordered COVID PCR negative/Flu negative. Viral panel pending. Urine Cx negative. Blood Cx negative. Afebrile (Tmax 99.7), Hemodynamically Stable - Zosyn de-escalated to Ceftriaxone/Azithromycin by ID. No contraindication for EPSI from medical perspective. 3. Elevated Transaminases with minimal CBD dilatation on Abdomen US - LFTs improving, no abdominal symptoms. GI consulted for further evaluation and recommends MRCP (ordered). 4. Pericardial effusion suggested on CT - Echo done and shows no pericardial effusion DVT Px - Will hold Lovenox pending Pain management evaluation and epidural injection.
--- NOTE | 2019-10-13 17:30 | PN ---
Progress Note (short form) - Note Progress Note: c Left radicualr low back pain HPI 24 year old male history of low back pain for two years he has been treated conservative. He is on gabapentin, morphine.Patient is having severe low abck pain shooting down to left lower extremity pain. He has mri of L spine showed t here is large L5-s1 disc prolapse and herniation at left side s1 nerve. His pain is wose with coughing, stiting and walking. Michelle wa seen by neurosurgery and not a candidate and being planned for e pidural.Jackelyn is not able to do much activity becaue of pain. - Afebrile, on abx for pulmonary infiltrates. Petertloyda has been having severe pain, and on morphone prn and gabaepntin. Patient has pain management and neurosurgery NEUROLOGICAL EXAMINATION Alert oriented x 3, neck is supple vss, afebrile eomi, pupils reactive strength is normal in upper extremity THere is slr is positive on left side both legs hip flexion , extension, planter flexion and extension is normal both aries e left leg knee flexion and extension diminished effort reflex are symmetrical mri of L spine reviewed neurosurgery and pain management consult reviewed Assessment/Plan Left L5-S1 radiculopathy, no evidence of cord compression or cauda equina syndrome. Jackelyn has been on steroid and now on gabepntin, pt and waiting for ORALIA PLAN - continue gabapnetin to 600 mg po tid - zanaflex prn - nsadi prn and PT - Waiting for ORALIA, after finished abx Thanking you so much Dylon Botello MD
[2019-10-13 23:08] LABS: HEP B CORE AB, TOT Negative (Negative)
[2019-10-14] MEDS: methylPREDNISolone 4 MG TABLET PO SCH ×2 (05:10→08:52)
[2019-10-14] MEDS: GABAPENTIN 300 MG CAPSULE PO SCH ×3 (05:10→21:41)
[2019-10-14] MEDS: diazePAM 2 MG TABLET PO SCH ×3 (05:10→21:41)
[2019-10-14 09:16] LABS: BASO % 0.2 % (0-2.0); HEMATOCRIT 37.4 % (35.4-49); HEMOGLOBIN 12.8 GM/dL (11.7-16.9); LYMPH % 22.5 % (8-40); MCH 30.7 pg (25.7-33.7); MCHC 34.2 g/dl (32.0-35.9); MEAN CELL VOLUME 89.8 fl (80-96); MEAN PLT VOLUME 6.9 fl (7.5-11.1); MONO % 8.5 % (3.8-10.2); NEUT % 68.8 % (42.8-82.8); PLATELET COUNT 352 K/MM3 (134-434); RBC 4.17 M/mm3 (4.00-5.60); RDW 13.8 % (11.9-15.9); WHITE BLOOD COUNT 8.7 K/mm3 (4.0-10.0)
[2019-10-14 09:43] LABS: ALBUMIN 2.8 g/dl (3.4-5.0); BILIRUBIN,TOTAL 0.9 mg/dL (0.2-1); BLOOD UREA NITROGEN 17.5 mg/dL (7-18); CALCIUM 9.2 mg/dL (8.5-10.1); CREATININE 0.7 mg/dL (0.55-1.3); MAGNESIUM 2.5 mg/dL (1.8-2.4); PHOSPHOROUS 3.2 mg/dL (2.5-4.9); POTASSIUM 4.7 mmol/L (3.5-5.1); TOT PROT 7.5 g/dl (6.4-8.2)
[2019-10-14] MEDS ORDERED: PT OWN MED DRAWER 7, Y5N ONE ×5 (10:17→21:26)
[2019-10-14] MEDS ORDERED: cefTRIAXone SODIUM 1 GM VIAL ONE (10:17)
[2019-10-14] MEDS ORDERED: DEXTROSE 5%-WATER - 50 ML IVPB ONE (10:17)
[2019-10-14] MEDS: CHOLECALCIFEROL (VIT D3) 400 UNIT (10 MCG) TABLET PO SCH (10:28)
[2019-10-14] MEDS: ASCORBIC ACID 250 MG TABLET (FP) PO SCH ×2 (10:28→21:41)
[2019-10-14] MEDS: CEFTRIAXONE 1 GM in DEXTROSE 5%-WATER - 50 ML IVPB SCH (10:28)
[2019-10-14] MEDS: AZITHROMYCIN 500 MG TABLET PO SCH (10:29)
[2019-10-14] MEDS: ZINC SULFATE 220 MG CAPSULE (FP) PO SCH ×2 (10:29→21:41)
[2019-10-14] MEDS: PANTOPRAZOLE 40 MG TABLET PO SCH (10:29)
[2019-10-14] MEDS ORDERED: methylPREDNISolone 4 MG TABLET PO ONE ×3 (13:00→22:00)
--- NOTE | 2019-10-14 14:07 | PN ---
Physical Exam: SUBJECTIVE: Patient seen and examined at bedside. He denies any active fever, chills, night sweats, nausea, vomiting, abdominal pain OBJECTIVE: Vital Signs Period Temp Pulse Resp BP Sys/Sims Pulse Ox Last 24 Hr 98 F-98.7 F 63-91 18-20 120-121/64-70 96-98 GENERAL: The patient is awake, alert, and fully oriented, in acute distress. HEAD: Normal with no signs of trauma. EYES: PERRL, extraocular movements intact, sclera anicteric, conjunctiva clear. No ptosis. ENT: Ears normal, nares patent, oropharynx clear without exudates, moist mucous membranes. NECK: Trachea midline, full range of motion, supple. LUNGS: Breath sounds equal, clear to auscultation bilaterally, no wheezes, no crackles, no accessory muscle use. HEART: Regular rate and rhythm, S1, S2 without murmur, rub or gallop. ABDOMEN: Soft, nontender, nondistended, normoactive bowel sounds, no guarding, no rebound, no hepatosplenomegaly, no masses. EXTREMITIES: 2+ pulses, warm, well-perfused, no edema. able to move RLE, limited movement of LLE, due to pain NEUROLOGICAL: Cranial nerves II through XII grossly intact. Normal speech, gait not observed. Strength 4/5 all extremities, sensation intact in all extremities, negative babinski reflex PSYCH: Normal mood, normal affect. SKIN: Warm, dry, normal turgor, no rashes or lesions noted Laboratory Results - last 24 hr 10/11/19 10/11/19 10/14/19 20:00 20:00 08:14 WBC 8.7 RBC 4.17 Hgb 12.8 Hct 37.4 MCV 89.8 MCH 30.7 MCHC 34.2 RDW 13.8 Plt Count 352 MPV 6.9 L Absolute Neuts (auto) 6.0 Neutrophils % 68.8 D Lymphocytes % 22.5 D Monocytes % 8.5 Eosinophils % 0.0 D Basophils % 0.2 Nucleated RBC % 0 Sodium Potassium Chloride Carbon Dioxide Anion Gap BUN Creatinine Est GFR (CKD-EPI)AfAm Est GFR (CKD-EPI)NonAf Random Glucose Calcium Phosphorus Magnesium Total Bilirubin AST ALT Alkaline Phosphatase Total Protein Albumin Lyme Screen IgG & IgM <0.91 Lyme Disease (Early) Ab <0.80 Hep A IgM Ab Confirm Negative Hepatitis A Ab Total Positive H Hep Bs Antigen Negative Hep Bs Antibody Reactive Hep B Core Total Ab Negative Hep B Core IgM Ab Negative Hepatitis Be Antibody Negative Hepatitis Be Antigen Negative 10/14/19 08:14 WBC RBC Hgb Hct MCV MCH MCHC RDW Plt Count MPV Absolute Neuts (auto) Neutrophils % Lymphocytes % Monocytes % Eosinophils % Basophils % Nucleated RBC % Sodium 135 L Potassium 4.7 Chloride 103 Carbon Dioxide 27 Anion Gap 6 L BUN 17.5 Creatinine 0.7 Est GFR (CKD-EPI)AfAm 155.25 Est GFR (CKD-EPI)NonAf 133.96 Random Glucose 99 Calcium 9.2 Phosphorus 3.2 Magnesium 2.5 H Total Bilirubin 0.9 AST 42 H ALT 264 H Alkaline Phosphatase 302 H Total Protein 7.5 Albumin 2.8 L Lyme Screen IgG & IgM Lyme Disease (Early) Ab Hep A IgM Ab Confirm Hepatitis A Ab Total Hep Bs Antigen Hep Bs Antibody Hep B Core Total Ab Hep B Core IgM Ab Hepatitis Be Antibody Hepatitis Be Antigen Active Medications Generic Name Dose Route Start Last Admin Trade Name Freq PRN Reason Stop Dose Admin Ascorbic Acid 250 mg 10/11/19 10:00 10/14/19 10:28 Vitamin C - PO 250 mg BID AMINA Administration Azithromycin 500 mg 10/12/19 13:00 10/14/19 10:29 Zithromax PO 500 mg DAILY AMINA Administration Benzocaine/Menthol 1 each 10/10/19 17:28 10/12/19 21:25 Cepacol Lozenge - MM 1 each PRN PRN Administration SORE THROAT Cholecalciferol 800 unit 10/11/19 10:00 10/14/19 10:28 Vitamin D3 - PO 800 unit DAILY AMINA Administration Diazepam 2 mg 10/10/19 14:00 10/14/19 05:10 Valium - PO 2 mg TID AMINA Administration Gabapentin 600 mg 10/12/19 14:00 10/14/19 05:10 Neurontin - PO 600 mg TID AMINA Administration Ceftriaxone Sodium 1 gm/ 50 mls @ 200 mls/hr 10/12/19 13:00 10/14/19 10:28 Dextrose IVPB 200 mls/hr DAILY AMINA Administration Protocol Methylprednisolone 4 mg 10/14/19 07:00 10/14/19 08:52 Medrol - PO 10/19/19 06:59 4 mg AM AMINA Administration Methylprednisolone 4 mg 10/14/19 18:00 Medrol - PO 10/14/19 18:01 ONCE ONE Methylprednisolone 8 mg 10/14/19 22:00 Medrol - PO 10/14/19 22:01 HS ONE Methylprednisolone 4 mg 10/15/19 13:00 Medrol - PO 10/15/19 13:01 ONCE ONE Methylprednisolone 4 mg 10/15/19 18:00 Medrol - PO 10/15/19 18:01 ONCE ONE Methylprednisolone 4 mg 10/16/19 13:00 Medrol - PO 10/16/19 13:01 ONCE ONE Methylprednisolone 4 mg 10/15/19 22:00 Medrol - PO 10/17/19 22:01 HS AMINA Morphine Sulfate 2 mg 10/13/19 11:55 10/13/19 22:17 Morphine Sulfate IVPUSH 2 mg Q6H PRN Administration PAIN LEVEL 4 - 6 Pantoprazole Sodium 40 mg 10/14/19 10:00 10/14/19 10:29 Protonix - PO 40 mg DAILY AMINA Administration Zinc Sulfate 220 mg 10/11/19 10:00 10/14/19 10:29 Orazinc - PO 220 mg BID AMINA Administration ASSESSMENT/PLAN: IMAGING 10/10/19: * CT chest: Bibasal atelectatic changes, minimal b/l pleural effusion; cannot r/o superimposed pna; small pericardial effusion along inf margin of heart, hepatosplenomegaly * CTAP: No acute process * CT L-spine: L5-S1 minimal central/L paracentral disc bulge and min L paracentral posterior spur formation w/o gross nerve root impingement; L4-L5 level there is questionable min central disc bulge w/o nerve root impingement MRI L Spine 10/11/19- DJD L4/5, L5/S1. L5/S1 disc herniation with extruded disc obliterating the left epidural recesses with mass effect on the L S1 nerve root; L4/5midline herniation lateralizing toward the R with indentation on the R L5 nerve root. no evidence of septic spondylitis, epidural abscess or praraspinal masses. ASSESSMENT/PLAN: 24M w/ no pmhx presents with complaints of LLE pain and weakness with infrequent unproductive cough. #LLE weakness/pain 2/2 acute radiculopathy due to disc herniaton - CT L-spine done; results noted above. - Lumbar MRI- as noted above - Neurosurg consulted (Dr. mario), rec: epidural steroid injection and oral anti-inflammatory medications no acute neurosurgical intervention is indicated - Physical therapy on board - pain management (Dr. Flynn) consulted, Can schedule on Wednesday for L transforminal epidural injection L4/5 Harshad Mayen is consulted for Possible Epidural injection for Wednesday, Pending further response - Neurology consulted (Dr. dumont), recs: increase gabapnetin to 600 mg po tid zanaflex prn nsadi prn and PT - Continue Medrol dosepak - Continue Valium, Gabapentin, Zanaflex, and Morphin for Pain management #Elavated inflamatory markers #Elevated D-dimers # Pneumonia - Covid negative x 3, Flu negative - D-dimer 1028, Ferritin 2975, LD 332, CRP 12.3 - Coninue to monitor v/s - CTA negative for PE,-Bibasilar atelectasis, Duplex negative for DVT - No Disciitis or abscess on MRI L Spine, - 10/12 MRI T Spine: No evidence of discitis, epidural or prevertebral masses or abbesses. No evidence of Disk herniations or cord compression. - Blood Cx pending - Urine culture-No growth - ID consulted, Dr. Cox. changed abx to zithro and ceftriaxone - Continue Ceftriaxone/Azithromycin, per ID - Pending viral pannel - pending Quantiferon #Acute Transaminitis #CBD Dilation: - AST/ALT 177/889 - v/s are stable - Cont to trend LFTs - GI consulted, Dr. Hernandez, recs: When stable, MRCP for further eval - f/u hepatitis panel - 10/09 CTAB reviewed: hepatomegaly noted - 10/10 Abdomen u/s ordered: Mild fatty infiltration vs hepatocellular disease. Mild Dilation of CBD 7mm w/o gallstones - 10/12 MRCP: No evidence of dilatation of the common bile duct, common hepatic duct or intrahepatic biliary radicles. No evidence of choledocholithiasis. Poor definition of the body and tail of the pancreas - Avoid hepatotoxic drugs #Pericardial effusion on CT - Echo: EF 60-65%, No evidence of pericardial effusion #DVT Prophylaxis - [employer] PPX, pending Pain management evaluation and epidural injection - SCDs #FEN - No standing fluids - Continue to monitor electrolytes - Regular diet Dispo - Continue to monitor in med-surg, Pending ORALIA Visit type - Emergency Visit Emergency Visit: Yes ED Registration Date: 10/10/19 Care time: The patient presented to the Emergency Department on the above date and was hospitalized for further evaluation of their emergent condition. - New Patient This patient is new to me today: Yes Date on this admission: 10/15/19 - Critical Care Critical Care patient: No ATTENDING PHYSICIAN STATEMENT I saw and evaluated the patient. I reviewed the resident's note and discussed the case with the resident. I agree with the resident's findings and plan as documented. SUBJECTIVE: OBJECTIVE: ASSESSMENT AND PLAN:
--- NOTE | 2019-10-14 14:34 | PN ---
Teaching Attending Note Name of Resident: Min Easley ATTENDING PHYSICIAN STATEMENT I saw and evaluated the patient. I reviewed the resident's note and discussed the case with the resident. I agree with the resident's findings and plan as documented. SUBJECTIVE: Ongoing pain LLE limiting range of motion - minimal improvement. No fever/chills. No sensory loss. OBJECTIVE: Afebrile, Hemodynamically stable. Eager to regain ability to sit/stand/mobility. Last Vital Signs Temp Pulse Resp BP Pulse Ox 98 F 63 18 120/70 98 10/14/19 05:00 10/14/19 05:00 10/14/19 05:00 10/14/19 05:00 10/14/19 05:00 Heart - S1, S2, RRR Lungs - clear to auscultation Abdomen - soft, non-tender. Bowel Sounds normal. Extremities - No edema, no calf tenderness. MS - Mild tenderness over LS spine. Neuro - AAO x 3. Severe pain limiting neurological exam LLEs. Appears to have good tone and strength distal to knee. Laboratory Results - last 24 hr 10/11/19 10/11/19 10/14/19 20:00 20:00 08:14 WBC 8.7 RBC 4.17 Hgb 12.8 Hct 37.4 MCV 89.8 MCH 30.7 MCHC 34.2 RDW 13.8 Plt Count 352 MPV 6.9 L Absolute Neuts (auto) 6.0 Neutrophils % 68.8 D Lymphocytes % 22.5 D Monocytes % 8.5 Eosinophils % 0.0 D Basophils % 0.2 Nucleated RBC % 0 Sodium Potassium Chloride Carbon Dioxide Anion Gap BUN Creatinine Est GFR (CKD-EPI)AfAm Est GFR (CKD-EPI)NonAf Random Glucose Calcium Phosphorus Magnesium Total Bilirubin AST ALT Alkaline Phosphatase Total Protein Albumin Lyme Screen IgG & IgM <0.91 Hep A IgM Ab Confirm Negative Hepatitis A Ab Total Positive H Hep Bs Antigen Negative Hep Bs Antibody Reactive Hep B Core Total Ab Negative Hep B Core IgM Ab Negative Hepatitis Be Antibody Negative Hepatitis Be Antigen Negative 10/14/19 08:14 WBC RBC Hgb Hct MCV MCH MCHC RDW Plt Count MPV Absolute Neuts (auto) Neutrophils % Lymphocytes % Monocytes % Eosinophils % Basophils % Nucleated RBC % Sodium 135 L Potassium 4.7 Chloride 103 Carbon Dioxide 27 Anion Gap 6 L BUN 17.5 Creatinine 0.7 Est GFR (CKD-EPI)AfAm 155.25 Est GFR (CKD-EPI)NonAf 133.96 Random Glucose 99 Calcium 9.2 Phosphorus 3.2 Magnesium 2.5 H Total Bilirubin 0.9 AST 42 H ALT 264 H Alkaline Phosphatase 302 H Total Protein 7.5 Albumin 2.8 L Lyme Screen IgG & IgM Hep A IgM Ab Confirm Hepatitis A Ab Total Hep Bs Antigen Hep Bs Antibody Hep B Core Total Ab Hep B Core IgM Ab Hepatitis Be Antibody Hepatitis Be Antigen Current Medications Generic Name Dose Route Start Last Admin Trade Name Freq PRN Reason Stop Dose Admin Ascorbic Acid 250 mg 10/11/19 10:00 10/14/19 10:28 Vitamin C - PO 250 mg BID AMINA Administration Azithromycin 500 mg 10/12/19 13:00 10/14/19 10:29 Zithromax PO 500 mg DAILY AMINA Administration Benzocaine/Menthol 1 each 10/10/19 17:28 10/12/19 21:25 Cepacol Lozenge - MM 1 each PRN PRN Administration SORE THROAT Cholecalciferol 800 unit 10/11/19 10:00 10/14/19 10:28 Vitamin D3 - PO 800 unit DAILY AMINA Administration Diazepam 2 mg 10/10/19 14:00 10/14/19 15:24 Valium - PO 2 mg TID AMINA Administration Gabapentin 600 mg 10/12/19 14:00 10/14/19 15:24 Neurontin - PO 600 mg TID AMINA Administration Ceftriaxone Sodium 1 gm/ 50 mls @ 200 mls/hr 10/12/19 13:00 10/14/19 10:28 Dextrose IVPB 200 mls/hr DAILY AMINA Administration Protocol Methylprednisolone 4 mg 10/14/19 07:00 10/14/19 08:52 Medrol - PO 10/19/19 06:59 4 mg AM AMINA Administration Methylprednisolone 4 mg 10/14/19 18:00 Medrol - PO 10/14/19 18:01 ONCE ONE Methylprednisolone 8 mg 10/14/19 22:00 Medrol - PO 10/14/19 22:01 HS ONE Methylprednisolone 4 mg 10/15/19 13:00 Medrol - PO 10/15/19 13:01 ONCE ONE Methylprednisolone 4 mg 10/15/19 18:00 Medrol - PO 10/15/19 18:01 ONCE ONE Methylprednisolone 4 mg 10/16/19 13:00 Medrol - PO 10/16/19 13:01 ONCE ONE Methylprednisolone 4 mg 10/15/19 22:00 Medrol - PO 10/17/19 22:01 HS AMINA Morphine Sulfate 2 mg 10/13/19 11:55 10/13/19 22:17 Morphine Sulfate IVPUSH 2 mg Q6H PRN Administration PAIN LEVEL 4 - 6 Pantoprazole Sodium 40 mg 10/14/19 10:00 10/14/19 10:29 Protonix - PO 40 mg DAILY AMINA Administration Senna 1 tab 10/14/19 22:00 Senna - PO HS AMINA Zinc Sulfate 220 mg 10/11/19 10:00 10/14/19 10:29 Orazinc - PO 220 mg BID AMINA Administration Home Medications Medication Instructions Recorded Methocarbamol [Robaxin -] 500 mg PO BID PRN 10/11/19 ASSESSMENT AND PLAN: 24 year old male with history of DJD Spine with disc disease, complains of 4 day history of LLE pain starting in his L glut radiating down the back of his L leg to his toes. Recent febrile illness and sinus congestion/cough, now resolved. CT chest: Bibasal atelectatic changes, minimal b/l pleural effusion; cannot r/o superimposed pna; small pericardial effusion along inferior margin of heart, hepatosplenomegaly CTA/P: No acute process CT L-spine: L5-S1 minimal central/L paracentral disc bulge and min L paracentral posterior spur formation w/o gross nerve root impingement; L4-L5 level there is questionable min central disc bulge w/o nerve root impingement 1. Acute Disc Herniation with radiculopathy MRI L Spine - DJD L4/5, L5/S1. L5/S1 disc herniation with extruded disc obliterating the left epidural recesses with mass effect on the L S1 nerve root; L4/5midline herniation lateralizing toward the R with indentation on the R L5 nerve root. no evidence of septic spondylitis, epidural abscess or praraspinal masses. Given Decadron IV x 2, Valium, Gabapentin, Morphine PRN, started on Medrol dose pack. Neurosurgery recommends spinal injection but Pain Management physician not comfortable with this at this time for unclear reasons. Neurology evaluated and recommended increasing Gabapentin dosing/Zanaflex. Currently on Valium. Pain Management consulted - also recommends L transforminal epidural injection L4/5 but has not scheduled it. Neurosurgery informed re: pain management's reluctance to intervene currently, awaiting further response. Will attempt to reach out to pain management to explore options in attempt for more immediate relief. 2. Pneumonia DDIMER/CRP/Ferritin/ESR elevated due to infection/inflammation CTA chest - no PE, bibasilar atelectasis/Duplex LEs - No DVT. No Disciitis or abscess on MRI L Spine, MRI T Spine -no disciitis/abscess, no herniation, no compression. COVID PCR negative/Flu negative. Viral panel pending. Urine Cx negative. Blood Cx negative. Afebrile, Hemodynamically Stable - Zosyn de-escalated to Ceftriaxone/Azithromycin by ID. No contraindication for EPSI from medical perspective. 3. Elevated Transaminases with minimal CBD dilatation on Abdomen US - LFTs improving, no abdominal symptoms. MRCP - normal biliary tree, no CBD dilatation, pancreas not fully visualized, recommendation for CT A/P - can be done as out-patient. GI following 4. Pericardial effusion suggested on CT - Echo done and shows no pericardial effusion DVT Px - Lovenox held pending Pain management scheduling of epidural injection.
[2019-10-14] MEDS ORDERED: DOCUSATE SODIUM 100 MG CAPSULE (FP) PO ONE ×2 (15:39→21:57)
--- NOTE | 2019-10-14 15:42 | PN ---
Progress Note, Physician History of Present Illness: Pt without new complaints. Still with back pain with movement limiting ROM. Afebrile, without any other specific complaints. - Current Medication List Current Medications: Active Medications Ascorbic Acid (Vitamin C -) 250 mg PO BID COUNT INCLUDES THE [facility] Last Admin: 10/14/19 10:28 Dose: 250 mg Documented by: Azithromycin (Zithromax) 500 mg PO DAILY COUNT INCLUDES [facility] Last Admin: 10/14/19 10:29 Dose: 500 mg Documented by: Benzocaine/Menthol (Cepacol Lozenge -) 1 each MM PRN PRN PRN Reason: SORE THROAT Last Admin: 10/12/19 21:25 Dose: 1 each Documented by: Cholecalciferol (Vitamin D3 -) 800 unit PO DAILY COUNT INCLUDES [facility] Last Admin: 10/14/19 10:28 Dose: 800 unit Documented by: Diazepam (Valium -) 2 mg PO TID COUNT INCLUDES [facility] Last Admin: 10/14/19 15:24 Dose: 2 mg Documented by: Gabapentin (Neurontin -) 600 mg PO TID COUNT INCLUDES [facility] Last Admin: 10/14/19 15:24 Dose: 600 mg Documented by: Ceftriaxone Sodium 1 gm/ (Dextrose) 50 mls @ 200 mls/hr IVPB DAILY COUNT INCLUDES THE [facility]; Protocol Last Admin: 10/14/19 10:28 Dose: 200 mls/hr Documented by: Methylprednisolone (Medrol -) 4 mg PO AM COUNT INCLUDES [facility] Stop: 10/19/19 06:59 Last Admin: 10/14/19 08:52 Dose: 4 mg Documented by: Methylprednisolone (Medrol -) 4 mg PO ONCE ONE Stop: 10/14/19 18:01 Methylprednisolone (Medrol -) 8 mg PO HS ONE Stop: 10/14/19 22:01 Methylprednisolone (Medrol -) 4 mg PO ONCE ONE Stop: 10/15/19 13:01 Methylprednisolone (Medrol -) 4 mg PO ONCE ONE Stop: 10/15/19 18:01 Methylprednisolone (Medrol -) 4 mg PO ONCE ONE Stop: 10/16/19 13:01 Methylprednisolone (Medrol -) 4 mg PO HS COUNT INCLUDES [facility] Stop: 10/17/19 22:01 Morphine Sulfate (Morphine Sulfate) 2 mg IVPUSH Q6H PRN PRN Reason: PAIN LEVEL 4 - 6 Last Admin: 10/13/19 22:17 Dose: 2 mg Documented by: Pantoprazole Sodium (Protonix -) 40 mg PO DAILY COUNT INCLUDES [facility] Last Admin: 10/14/19 10:29 Dose: 40 mg Documented by: Zinc Sulfate (Orazinc -) 220 mg PO BID COUNT INCLUDES [facility] Last Admin: 10/14/19 10: Dose: 220 mg Documented by: - Objective Vital Signs: Vital Signs Temperature 98 F 10/14/19 05:00 Pulse Rate 63 10/14/19 05:00 Respiratory Rate 18 10/14/19 05:00 Blood Pressure 120/70 10/14/19 05:00 O2 Sat by Pulse Oximetry (%) 98 10/14/19 05:00 Constitutional: Yes: No Distress, Calm Cardiovascular: Yes: Regular Rate and Rhythm Respiratory: Yes: Regular Gastrointestinal: Yes: Normal Bowel Sounds, Soft Musculoskeletal: Yes: Back Pain Edema: No Integumentary: Yes: WNL Neurological: Yes: Alert Labs: CBC, BMP 10/14/19 08:14 10/14/19 08:14 INR, PTT INR 1.07 (0.83-1.09) 10/10/19 04:03 Laboratory Last Values WBC 8.7 K/mm3 (4.0-10.0) 10/14/19 08:14 RBC 4.17 M/mm3 (4.00-5.60) 10/14/19 08:14 Hgb 12.8 GM/dL (11.7-16.9) 10/14/19 08:14 Hct 37.4 % (35.4-49) 10/14/19 08:14 MCV 89.8 fl (80-96) 10/14/19 08:14 MCH 30.7 pg (25.7-33.7) 10/14/19 08:14 MCHC 34.2 g/dl (32.0-35.9) 10/14/19 08:14 RDW 13.8 % (11.9-15.9) 10/14/19 08:14 Plt Count 352 K/MM3 (134-434) 10/14/19 08:14 MPV 6.9 fl (7.5-11.1) L 10/14/19 08:14 Absolute Neuts (auto) 6.0 K/mm3 (1.5-8.0) 10/14/19 08:14 Neutrophils % 68.8 % (42.8-82.8) D 10/14/19 08:14 Lymphocytes % 22.5 % (8-40) D 10/14/19 08:14 Monocytes % 8.5 % (3.8-10.2) 10/14/19 08:14 Eosinophils % 0.0 % (0-4.5) D 10/14/19 08:14 Basophils % 0.2 % (0-2.0) 10/14/19 08:14 Nucleated RBC % 0 % (0-0) 10/14/19 08:14 ESR 85 mm/hr (0-10) H 10/11/19 05:44 PT with INR 12.60 SEC (9.7-13.0) 10/10/19 04:03 INR 1.07 (0.83-1.09) 10/10/19 04:03 PTT (Actin FS) 32.5 SECONDS (25.2-36.5) 10/10/19 04:03 D-Dimer 863 ng/ml (0-500) H 10/12/19 07:30 Sodium 135 mmol/L (136-145) L 10/14/19 08:14 Potassium 4.7 mmol/L (3.5-5.1) 10/14/19 08:14 Chloride 103 mmol/L (98-107) 10/14/19 08:14 Carbon Dioxide 27 mmol/L (21-32) 10/14/19 08:14 Anion Gap 6 MMOL/L (8-16) L 10/14/19 08:14 BUN 17.5 mg/dL (7-18) 10/14/19 08:14 Creatinine 0.7 mg/dL (0.55-1.3) 10/14/19 08:14 Est GFR (CKD-EPI)AfAm 155.25 10/14/19 08:14 Est GFR (CKD-EPI)NonAf 133.96 10/14/19 08:14 Random Glucose 99 mg/dL (74-106) 10/14/19 08:14 Calcium 9.2 mg/dL (8.5-10.1) 10/14/19 08:14 Phosphorus 3.2 mg/dL (2.5-4.9) 10/14/19 08:14 Magnesium 2.5 mg/dL (1.8-2.4) H 10/14/19 08:14 Ferritin 1758.7 ng/ml (8-388) H 10/12/19 07:30 Total Bilirubin 0.9 mg/dL (0.2-1) 10/14/19 08:14 Direct Bilirubin 0.3 mg/dL (0.0-0.2) H 10/11/19 05:44 AST 42 U/L (15-37) H 10/14/19 08:14 ALT 264 U/L (13-61) H 10/14/19 08:14 Alkaline Phosphatase 302 U/L (45-117) H 10/14/19 08:14 LD Total 161 U/L (87-246) 10/12/19 07:30 Creatine Kinase 28 U/L (26-308) 10/10/19 06:30 Troponin I < 0.02 ng/ml (0.00-0.05) 10/10/19 06:30 C-Reactive Protein 7.5 MG/DL (0.00-0.3) H 10/12/19 07:30 Total Protein 7.5 g/dl (6.4-8.2) 10/14/19 08:14 Albumin 2.8 g/dl (3.4-5.0) L 10/14/19 08:14 Urine Color Yellow 10/10/19 03:46 Urine Appearance Clear 10/10/19 03:46 Urine pH 6.5 (5.0-8.0) 10/10/19 03:46 Ur Specific [place] 1.019 (1.010-1.035) 10/10/19 03:46 Urine Protein Negative (NEGATIVE) 10/10/19 03:46 Urine Glucose (UA) Negative (NEGATIVE) 10/10/19 03:46 Urine Ketones Negative (NEGATIVE) 10/10/19 03:46 Urine Blood Negative (NEGATIVE) 10/10/19 03:46 Urine Nitrite Negative (NEGATIVE) 10/10/19 03:46 Urine Bilirubin Negative (NEGATIVE) 10/10/19 03:46 Urine Urobilinogen 1.0 mg/dL (0.2-1.0) 10/10/19 03:46 Ur Leukocyte Esterase Negative (NEGATIVE) 10/10/19 03:46 Salicylates < 1.7 mg/dL (2.8-20) L 10/10/19 03:54 Acetaminophen < 2 ug/ml 10/11/19 15:24 Lyme Screen IgG & IgM <0.91 ISR (0.00-0.90) 10/11/19 20:00 Lyme Disease (Early) Ab <0.80 index (0.00-0.79) 10/11/19 20:00 COVID-19 (KAREN) Not detected (Not Detected) 10/10/19 05:00 Hep A IgM Ab Confirm Negative (Negative) 10/11/19 20:00 Hep A IgM Ab Confirm Negative (Negative) 10/11/19 20:00 Hepatitis A Ab Total Positive (Negative) H 10/11/19 20:00 Hep Bs Antigen Negative (Negative) 10/11/19 20:00 Hep Bs Antigen Negative (Negative) 10/11/19 20:00 Hep Bs Antibody Reactive (.) 10/11/19 20:00 Hep B Core Total Ab Negative (Negative) 10/11/19 20:00 Hep B Core IgM Ab Negative (Negative) 10/11/19 20:00 Hep B Core IgM Ab Negative (Negative) 10/11/19 20:00 Hepatitis Be Antibody Negative (Negative) 10/11/19 20:00 Hepatitis Be Antigen Negative (Negative) 10/11/19 20:00 Hepatitis C Ab (EIA) <0.1 s/co ratio (0.0-0.9) 10/11/19 20:00 Influenza A (Rapid) Negative (Negative) 10/12/19 02:50 Influenza B (Rapid) Negative (Negative) 10/12/19 02:50 Microbiology 10/11/19 20:00 Blood - Peripheral Venous Blood Culture - Preliminary NO GROWTH OBTAINED AFTER 48 HOURS, INCUBATION TO CONTINUE FOR 3 DAYS. 10/11/19 20:00 Blood - Peripheral Venous Blood Culture - Preliminary NO GROWTH OBTAINED AFTER 48 HOURS, INCUBATION TO CONTINUE FOR 3 DAYS. 10/10/19 03:46 Urine - Urine Clean Catch Urine Culture - Final NO GROWTH OBTAINED - ....Imaging Cat Scan: Report Reviewed MRI: Report Reviewed Assessment/Plan Back pain - lumbar disc prolapse/hernia Possible PNA Elevated LFTs -- continue current antibiotics -- MRI results noted - no paraspinal/spinal abscess -- MRI Abd - no specific findings, LFTs trending down, afebrile Neurosurgery following, for epidural
[2019-10-14] MEDS ORDERED: DOCUSATE SODIUM 100 MG CAPSULE (FP) PO PRN (16:56)
[2019-10-14] MEDS: SENNOSIDES 8.6MG TABLET (FP) PO SCH (21:41)
--- NOTE | 2019-10-14 21:51 | PN.GI ---
GI Progress Note Subjective: significant improvement of lfts, no GI symptoms - Objective Vital Signs: Vital Signs Temperature 98 F 10/14/19 05:00 Pulse Rate 63 10/14/19 05:00 Respiratory Rate 18 10/14/19 05:00 Blood Pressure 120/70 10/14/19 05:00 O2 Sat by Pulse Oximetry (%) 98 10/14/19 05:00 Constitutional: Well Nourished HENT: Yes: Atraumatic ...Palpate: Yes: Soft. No: Firm/Rigid, Guarding, Hepatomegaly, Mass, Pulsatile Mass, Splenomegaly, Tenderness Labs: CBC, BMP 10/14/19 08:14 10/14/19 08:14 INR, PTT INR 1.07 (0.83-1.09) 10/10/19 04:03 Problem List - Problems (1) Dilated cbd, acquired Assessment/Plan: not seen by MRCP Code(s): K83.8 - OTHER SPECIFIED DISEASES OF BILIARY TRACT (2) Elevated liver enzymes Assessment/Plan: resolving most likely due to drug toxiciity Code(s): R74.8 - ABNORMAL LEVELS OF OTHER SERUM ENZYMES
[2019-10-14] MEDS ORDERED: SENNOSIDES 8.6MG TABLET (FP) PO SCH (22:00)
[2019-10-14] MEDS: DOCUSATE SODIUM 100 MG CAPSULE (FP) PO SCH (22:25)
[2019-10-15] MEDS ORDERED: PT OWN MED DRAWER 7, Y5N ONE (06:06)
[2019-10-15] MEDS: GABAPENTIN 300 MG CAPSULE PO SCH ×3 (06:09→22:38)
[2019-10-15] MEDS: diazePAM 2 MG TABLET PO SCH ×3 (06:09→22:39)
[2019-10-15] MEDS: methylPREDNISolone 4 MG TABLET PO SCH ×2 (07:15→22:38)
[2019-10-15 08:47] LABS: BASO % 0.5 % (0-2.0); EOS % 0.1 % (0-4.5); HEMATOCRIT 38.1 % (35.4-49); LYMPH % 32.5 % (8-40); MCH 30.7 pg (25.7-33.7); MEAN CELL VOLUME 90.2 fl (80-96); MEAN PLT VOLUME 6.7 fl (7.5-11.1); MONO % 10.9 % (3.8-10.2); PLATELET COUNT 337 K/MM3 (134-434); RBC 4.22 M/mm3 (4.00-5.60); RDW 13.7 % (11.9-15.9); WHITE BLOOD COUNT 8.1 K/mm3 (4.0-10.0)
[2019-10-15 09:11] LABS: ALBUMIN 2.8 g/dl (3.4-5.0); BILIRUBIN,TOTAL 0.8 mg/dL (0.2-1); BLOOD UREA NITROGEN 21.3 mg/dL (7-18); CALCIUM 8.9 mg/dL (8.5-10.1); CREATININE 0.8 mg/dL (0.55-1.3); MAGNESIUM 2.2 mg/dL (1.8-2.4); PHOSPHOROUS 3.5 mg/dL (2.5-4.9); POTASSIUM 4.5 mmol/L (3.5-5.1); TOT PROT 7.2 g/dl (6.4-8.2)
[2019-10-15] MEDS ORDERED: cefTRIAXone SODIUM 1 GM VIAL ONE (09:52)
[2019-10-15] MEDS ORDERED: DEXTROSE 5%-WATER - 50 ML IVPB ONE (09:53)
[2019-10-15] MEDS: DOCUSATE SODIUM 100 MG CAPSULE (FP) PO SCH ×2 (09:55→22:38)
[2019-10-15] MEDS: CEFTRIAXONE 1 GM in DEXTROSE 5%-WATER - 50 ML IVPB SCH (09:55)
[2019-10-15] MEDS: CHOLECALCIFEROL (VIT D3) 400 UNIT (10 MCG) TABLET PO SCH (09:55)
[2019-10-15] MEDS: ZINC SULFATE 220 MG CAPSULE (FP) PO SCH ×2 (09:56→22:38)
[2019-10-15] MEDS: ASCORBIC ACID 250 MG TABLET (FP) PO SCH ×2 (09:56→22:39)
[2019-10-15] MEDS: AZITHROMYCIN 500 MG TABLET PO SCH (09:56)
[2019-10-15] MEDS: PANTOPRAZOLE 40 MG TABLET PO SCH (09:56)
[2019-10-15] MEDS ORDERED: methylPREDNISolone 4 MG TABLET PO ONE ×2 (13:00→18:00)
--- NOTE | 2019-10-15 14:16 | PN ---
Progress Note (short form) - Note Progress Note: SUBJECTIVE: Some improvement in pain of LLE limiting range of motion - but still not able to self-care or mobilize. No fever/chills. No sensory loss. OBJECTIVE: Afebrile, Hemodynamically stable. Eager to regain ability to sit/stand/mobility. Last Vital Signs Temp Pulse Resp BP Pulse Ox 97.7 F 56 L 18 110/61 99 10/15/19 05:00 10/15/19 05:00 10/15/19 05:00 10/15/19 05:00 10/15/19 05:00 Heart - S1, S2, RRR Lungs - clear to auscultation Abdomen - soft, non-tender. Bowel Sounds normal. Extremities - No edema, no calf tenderness. MS - Mild tenderness over LS spine. Neuro - AAO x 3. Severe pain limiting neurological exam LLEs. Appears to have good tone and strength distal to knee. Laboratory Results - last 24 hr 10/15/19 10/15/19 07:53 07:53 WBC 8.1 RBC 4.22 Hgb 13.0 Hct 38.1 MCV 90.2 MCH 30.7 MCHC 34.0 RDW 13.7 Plt Count 337 MPV 6.7 L Absolute Neuts (auto) 4.5 Neutrophils % 56.0 Lymphocytes % 32.5 D Monocytes % 10.9 H Eosinophils % 0.1 D Basophils % 0.5 Nucleated RBC % 0 Sodium 138 Potassium 4.5 Chloride 103 Carbon Dioxide 28 Anion Gap 6 L BUN 21.3 H Creatinine 0.8 Est GFR (CKD-EPI)AfAm 146.96 Est GFR (CKD-EPI)NonAf 126.80 Random Glucose 87 Calcium 8.9 Phosphorus 3.5 Magnesium 2.2 Total Bilirubin 0.8 AST 38 H ALT 222 H Alkaline Phosphatase 263 H Total Protein 7.2 Albumin 2.8 L Current Medications Generic Name Dose Route Start Last Admin Trade Name Freq PRN Reason Stop Dose Admin Ascorbic Acid 250 mg 10/11/19 10:00 10/15/19 09:56 Vitamin C - PO 250 mg BID [facility] Administration Azithromycin 500 mg 10/12/19 13:00 10/15/19 09:56 Zithromax PO 500 mg DAILY AMINA Administration Benzocaine/Menthol 1 each 10/10/19 17:28 10/12/19 21:25 Cepacol Lozenge - MM 1 each PRN PRN Administration SORE THROAT Cholecalciferol 800 unit 10/11/19 10:00 10/15/19 09:55 Vitamin D3 - PO 800 unit DAILY [facility] Administration Diazepam 2 mg 10/10/19 14:00 10/15/19 13:30 Valium - PO 2 mg TID AMINA Administration Docusate Sodium 100 mg 10/14/19 16:57 10/15/19 09:55 Colace - PO 100 mg BID AMINA Administration Gabapentin 600 mg 10/12/19 14:00 10/15/19 13:30 Neurontin - PO 600 mg TID [facility]INA Administration Ceftriaxone Sodium 1 gm/ 50 mls @ 200 mls/hr 10/12/19 13:00 10/15/19 09:55 Dextrose IVPB 200 mls/hr DAILY [facility] Administration Protocol Methylprednisolone 4 mg 10/14/19 07:00 10/15/19 07:15 Medrol - PO 10/19/19 06:59 4 mg AM [facility] Administration Methylprednisolone 4 mg 10/15/19 18:00 Medrol - PO 10/15/19 18:01 ONCE ONE Methylprednisolone 4 mg 10/16/19 13:00 Medrol - PO 10/16/19 13:01 ONCE ONE Methylprednisolone 4 mg 10/15/19 22:00 Medrol - PO 10/17/19 22:01 HS AMINA Morphine Sulfate 2 mg 10/13/19 11:55 10/13/19 22:17 Morphine Sulfate IVPUSH 2 mg Q6H PRN Administration PAIN LEVEL 4 - 6 Pantoprazole Sodium 40 mg 10/14/19 10:00 10/15/19 09:56 Protonix - PO 40 mg DAILY [facility] Administration Senna 2 tab 10/14/19 22:00 10/14/19 21:41 Senna - PO 2 tab HS [facility] Administration Zinc Sulfate 220 mg 10/11/19 10:00 10/15/19 09:56 Orazinc - PO 220 mg BID [facility] Administration Home Medications Medication Instructions Recorded Methocarbamol [Robaxin -] 500 mg PO BID PRN 10/11/19 ASSESSMENT AND PLAN: 24 year old male with history of DJD Spine with disc disease, complains of 4 day history of LLE pain starting in his L glut radiating down the back of his L leg to his toes. Recent febrile illness and sinus congestion/cough, now resolved. CT chest: Bibasal atelectatic changes, minimal b/l pleural effusion; cannot r/o superimposed pna; small pericardial effusion along inferior margin of heart, hepatosplenomegaly CTA/P: No acute process CT L-spine: L5-S1 minimal central/L paracentral disc bulge and min L paracentral posterior spur formation w/o gross nerve root impingement; L4-L5 level there is questionable min central disc bulge w/o nerve root impingement 1. Acute Disc Herniation with radiculopathy MRI L Spine - DJD L4/5, L5/S1. L5/S1 disc herniation with extruded disc obliterating the left epidural recesses with mass effect on the L S1 nerve root; L4/5midline herniation lateralizing toward the R with indentation on the R L5 nerve root. no evidence of septic spondylitis, epidural abscess or praraspinal masses. Given Decadron IV x 2, Valium, Gabapentin, Morphine PRN, started on Medrol dose pack. Neurosurgery recommends spinal injection but Pain Management physician not comfortable with this at this time for unclear reasons. Neurology evaluated and recommended increasing Gabapentin dosing/Zanaflex. Currently on Valium. Pain Management consulted - also recommends L transforminal epidural injection L4/5 but has not scheduled it. Neurosurgery informed re: pain management's reluctance to intervene currently, awaiting further response. Will attempt to reach out to pain management again today for a definitive plan. No medical contraindication to EPSI procedure. 2. Pneumonia DDIMER/CRP/Ferritin/ESR elevated due to infection/inflammation CTA chest - no PE, bibasilar atelectasis/Duplex LEs - No DVT. No Disciitis or abscess on MRI L Spine, MRI T Spine -no disciitis/abscess, no herniation, no compression. COVID PCR negative/Flu negative. Viral panel pending. Urine Cx negative. Blood Cx negative. Afebrile, Hemodynamically Stable - Zosyn de-escalated by ID to complete a course of Ceftriaxone/Azithromycin. No contraindication for EPSI from medical perspective. 3. Elevated Transaminases, likely sec to enthusiastic tylenol use. Minimal CBD dilatation on Abdomen US MRCP - normal biliary tree, no CBD dilatation, pancreas not fully visualized, recommendation for CT A/P - can be done as out-patient. LFTs improving, no abdominal symptoms. GI following DVT Px - Lovenox held pending Pain management scheduling of epidural injection. Visit type - Emergency Visit Emergency Visit: Yes ED Registration Date: 10/10/19 Care time: The patient presented to the Emergency Department on the above date and was hospitalized for further evaluation of their emergent condition. - New Patient This patient is new to me today: No - Critical Care Critical Care patient: No - Discharge Referral Referred to [facility] No
[2019-10-15] MEDS ORDERED: methylPREDNISolone 2 MG TABLET PO ONE (15:37)
--- NOTE | 2019-10-15 20:56 | PN ---
Progress Note, Physician History of Present Illness: No clinical change. Afebrile, alert. Still with limited ROM LLE due to pain. No SOB. - Current Medication List Current Medications: Active Medications Ascorbic Acid (Vitamin C -) 250 mg PO BID [facility] Last Admin: 10/15/19 09:56 Dose: 250 mg Documented by: Azithromycin (Zithromax) 500 mg PO DAILY [facility] Last Admin: 10/15/19 09:56 Dose: 500 mg Documented by: Benzocaine/Menthol (Cepacol Lozenge -) 1 each MM PRN PRN PRN Reason: SORE THROAT Last Admin: 10/12/19 21:25 Dose: 1 each Documented by: Cholecalciferol (Vitamin D3 -) 800 unit PO DAILY [facility] Last Admin: 10/15/19 09:55 Dose: 800 unit Documented by: Diazepam (Valium -) 2 mg PO TID [facility] Last Admin: 10/15/19 13:30 Dose: 2 mg Documented by: Docusate Sodium (Colace -) 100 mg PO BID [facility] Last Admin: 10/15/19 09:55 Dose: 100 mg Documented by: Gabapentin (Neurontin -) 600 mg PO TID [facility] Last Admin: 10/15/19 13:30 Dose: 600 mg Documented by: Ceftriaxone Sodium 1 gm/ (Dextrose) 50 mls @ 200 mls/hr IVPB DAILY [facility]; Protocol Last Admin: 10/15/19 09:55 Dose: 200 mls/hr Documented by: Methylprednisolone (Medrol -) 4 mg PO AM [facility] Stop: 10/19/19 06:59 Last Admin: 10/15/19 07:15 Dose: 4 mg Documented by: Methylprednisolone (Medrol -) 4 mg PO ONCE ONE Stop: 10/16/19 13:01 Methylprednisolone (Medrol -) 4 mg PO [facility] Stop: 10/17/19 22:01 Morphine Sulfate (Morphine Sulfate) 2 mg IVPUSH Q6H PRN PRN Reason: PAIN LEVEL 4 - 6 Last Admin: 10/13/19 22:17 Dose: 2 mg Documented by: Pantoprazole Sodium (Protonix -) 40 mg PO DAILY [facility] Last Admin: 10/15/19 09:56 Dose: 40 mg Documented by: Senna (Senna -) 2 tab PO [facility] Last Admin: 10/14/19 21:41 Dose: 2 tab Documented by: Zinc Sulfate (Orazinc -) 220 mg PO BID [facility] Last Admin: 10/15/19 09:56 Dose: 220 mg Documented by: - Objective Vital Signs: Vital Signs Temperature 96.3 F L 10/15/19 13:00 Pulse Rate 78 10/15/19 13:00 Respiratory Rate 20 10/15/19 13:00 Blood Pressure 117/68 10/15/19 13:00 O2 Sat by Pulse Oximetry (%) 97 10/15/19 13:00 Constitutional: Yes: No Distress, Calm Cardiovascular: Yes: Regular Rate and Rhythm Respiratory: Yes: Regular Gastrointestinal: Yes: Normal Bowel Sounds, Soft Genitourinary: Yes: WNL Musculoskeletal: Yes: Back Pain Edema: No Integumentary: Yes: WNL Neurological: Yes: Other (LLE pain/limited ROM) Labs: CBC, BMP 10/15/19 07:53 10/15/19 07:53 INR, PTT INR 1.07 (0.83-1.09) 10/10/19 04:03 Microbiology 10/11/19 20:00 Blood - Peripheral Venous Blood Culture - Preliminary NO GROWTH OBTAINED AFTER 72 HOURS, INCUBATION TO CONTINUE FOR 2 DAYS. 10/11/19 20:00 Blood - Peripheral Venous Blood Culture - Preliminary NO GROWTH OBTAINED AFTER 72 HOURS, INCUBATION TO CONTINUE FOR 2 DAYS. 10/10/19 03:46 Urine - Urine Clean Catch Urine Culture - Final NO GROWTH OBTAINED Assessment/Plan Back pain - lumbar disc prolapse/hernia PNA Elevated LFTs -- continue antibiotics, no SOB/cough, afebrile/vitals stable -- MRI results noted - no paraspinal/spinal abscess -- LFTs trending down Neurosurgery following
[2019-10-15] MEDS: SENNOSIDES 8.6MG TABLET (FP) PO SCH (22:39)
[2019-10-16] MEDS: diazePAM 2 MG TABLET PO SCH ×3 (06:41→21:34)
[2019-10-16] MEDS: methylPREDNISolone 4 MG TABLET PO SCH ×2 (06:41→21:34)
[2019-10-16] MEDS: GABAPENTIN 300 MG CAPSULE PO SCH ×3 (06:41→21:34)
[2019-10-16] MEDS ORDERED: PT OWN MED DRAWER 7, Y5N ONE ×2 (09:14→21:25)
[2019-10-16] MEDS ORDERED: DEXTROSE 5%-WATER - 50 ML IVPB ONE (09:15)
[2019-10-16] MEDS ORDERED: cefTRIAXone SODIUM 1 GM VIAL ONE (09:15)
[2019-10-16] MEDS: PANTOPRAZOLE 40 MG TABLET PO SCH (09:31)
[2019-10-16] MEDS: AZITHROMYCIN 500 MG TABLET PO SCH (09:31)
[2019-10-16] MEDS: ZINC SULFATE 220 MG CAPSULE (FP) PO SCH ×2 (09:31→21:34)
[2019-10-16] MEDS: DOCUSATE SODIUM 100 MG CAPSULE (FP) PO SCH ×2 (09:32→21:33)
[2019-10-16] MEDS: ASCORBIC ACID 250 MG TABLET (FP) PO SCH ×2 (09:32→21:34)
[2019-10-16] MEDS: CEFTRIAXONE 1 GM in DEXTROSE 5%-WATER - 50 ML IVPB SCH (09:32)
[2019-10-16] MEDS: CHOLECALCIFEROL (VIT D3) 400 UNIT (10 MCG) TABLET PO SCH (09:32)
--- NOTE | 2019-10-16 10:37 | PN ---
Progress Note (short form) - Note Progress Note: 24 year old male history of low back pain for two years he has been treated conservative. He is on gabapentin, morphine.Patient is having severe low abck pain shooting down to left lower extremity pain. He has mri of L spine showed there is large L5-s1 disc prolapse and herniation at left side s1 nerve. His pain is wose with coughing, stiting and walking. Michelle wa seen by neurosurgery and not a candidate and being planned for epidural.Jackelyn is not able to do much activity becaue of pain. - Afebrile, on abx for pulmonary infiltrates, today is last day of abx, consider carlos tomorrow or this week. he is doing pt and feeling better NEUROLOGICAL EXAMINATION Alert oriented x 3, neck is supple vss, afebrile eomi, pupils reactive strength is normal in upper extremity THere is slr is positive on left side both legs hip flexion , extension, planter flexion and extension is normal both aries e left leg knee flexion and extension diminished effort reflex are symmetrical -- exam remain unchanged, difficult to left left leg in bed due to pain and able to walk with pt mri of L spine reviewed neurosurgery and pain management consult reviewed Assessment/Plan Left L5-S1 radiculopathy, no evidence of cord compression or cauda equina syndrome. Jackelyn has been on steroid and now on gabepntin, pt and waiting for CARLOS PLAN - continue gabapnetin to 600 mg po tid - zanaflex prn - finishing abx today and waiting for CARLOS Thanking you so much Dylon Botello MD
--- NOTE | 2019-10-16 10:52 | PN ---
Progress Note, Physician History of Present Illness: pain still present plan for further mgmt - Current Medication List Current Medications: Active Medications Ascorbic Acid (Vitamin C -) 250 mg PO BID [facility] Last Admin: 10/16/19 09:32 Dose: 250 mg Documented by: Azithromycin (Zithromax) 500 mg PO DAILY [facility] Last Admin: 10/16/19 09:31 Dose: 500 mg Documented by: Benzocaine/Menthol (Cepacol Lozenge -) 1 each MM PRN PRN PRN Reason: SORE THROAT Last Admin: 10/12/19 21:25 Dose: 1 each Documented by: Cholecalciferol (Vitamin D3 -) 800 unit PO DAILY [facility] Last Admin: 10/16/19 09:32 Dose: 800 unit Documented by: Diazepam (Valium -) 2 mg PO TID [facility] Last Admin: 10/16/19 06:41 Dose: 2 mg Documented by: Docusate Sodium (Colace -) 100 mg PO BID [facility] Last Admin: 10/16/19 09:32 Dose: 100 mg Documented by: Gabapentin (Neurontin -) 600 mg PO TID [facility] Last Admin: 10/16/19 06:41 Dose: 600 mg Documented by: Ceftriaxone Sodium 1 gm/ (Dextrose) 50 mls @ 200 mls/hr IVPB DAILY [facility]; P rotocol Last Admin: 10/16/19 09:32 Dose: 200 mls/hr Documented by: Methylprednisolone (Medrol -) 4 mg PO AM [facility] Stop: 10/19/19 06:59 Last Admin: 10/16/19 06:41 Dose: 4 mg Documented by: Methylprednisolone (Medrol -) 4 mg PO ONCE ONE Stop: 10/16/19 13:01 Methylprednisolone (Medrol -) [address] [facility] Stop: 10/17/19 22:01 Last Admin: 10/15/19 22:38 Dose: 4 mg Documented by: Morphine Sulfate (Morphine Sulfate) 2 mg IVPUSH Q6H PRN PRN Reason: PAIN LEVEL 4 - 6 Last Admin: 10/13/19 22:17 Dose: 2 mg Documented by: Pantoprazole Sodium (Protonix -) 40 mg PO DAILY [facility] Last Admin: 10/16/19 09:31 Dose: 40 mg Documented by: Senna (Senna -) [address] [facility] Last Admin: 10/15/19 22:39 Dose: 2 tab Documented by: Zinc Sulfate (Orazinc -) 220 mg PO BID [facility] Last Admin: 10/16/19 09:31 Dose: 220 mg Documented by: - Objective Vital Signs: Vital Signs Temperature 98.2 F 10/16/19 09:30 Pulse Rate 61 10/16/19 09:30 Respiratory Rate 17 10/16/19 09:30 Blood Pressure 120/69 10/16/19 09:30 O2 Sat by Pulse Oximetry (%) 98 10/16/19 09:30 Constitutional: Yes: Calm, Mild Distress HENT: Yes: Atraumatic, Normocephalic Neck: Yes: Supple, Trachea Midline Cardiovascular: Yes: Regular Rate and Rhythm Respiratory: Yes: Regular, CTA Bilaterally Gastrointestinal: Yes: Normal Bowel Sounds, Soft Musculoskeletal: Yes: WNL Extremities: Yes: WNL Neurological: Yes: Alert, Oriented Psychiatric: Yes: Alert, Oriented Labs: CBC, BMP 10/15/19 07:53 10/15/19 07:53 INR, PTT INR 1.07 (0.83-1.09) 10/10/19 04:03 Assessment/Plan Back pain - lumbar disc prolapse/hernia PNA Elevated LFTs -can stop abx tomorrow rest continue current mgmt
--- NOTE | 2019-10-16 12:44 | PN ---
Physical Exam: SUBJECTIVE: Patient seen and examined at bedside. No acute events overnight. Patient still complains of pain of his back and RLE. He denies any active fever, chills, night sweats, nausea, vomiting, abdominal pain OBJECTIVE: Vital Signs Period Temp Pulse Resp BP Sys/Sims Pulse Ox Last 24 Hr 96.3 F-98.6 F 61-89 17-20 117-126/68-75 97-99 GENERAL: The patient is awake, alert, and fully oriented, in acute distress. HEAD: Normal with no signs of trauma. EYES: PERRL, extraocular movements intact, sclera anicteric, conjunctiva clear. No ptosis. ENT: Ears normal, nares patent, oropharynx clear without exudates, moist mucous membranes. NECK: Trachea midline, full range of motion, supple. LUNGS: Breath sounds equal, clear to auscultation bilaterally, no wheezes, no crackles, no accessory muscle use. HEART: Regular rate and rhythm, S1, S2 without murmur, rub or gallop. ABDOMEN: Soft, nontender, nondistended, normoactive bowel sounds, no guarding, no rebound, no hepatosplenomegaly, no masses. EXTREMITIES: 2+ pulses, warm, well-perfused, no edema. able to move RLE, limited movement of LLE, due to pain NEUROLOGICAL: Cranial nerves II through XII grossly intact. Normal speech, gait not observed. Strength 4/5 all extremities, sensation intact in all extremities, negative babinski reflex PSYCH: Normal mood, normal affect. SKIN: Warm, dry, normal turgor, no rashes or lesions noted Laboratory Results - last 24 hr 10/12/19 07:30 TB Test (QFT) Nil 0.11 TB Test (QFT) Mitogen >10.00 TB Test (QFT) Ag 1 0.17 TB Test (QFT) Ag 2 0.11 TB Test (QFT) Negative TB Positive Criteria Active Medications Generic Name Dose Route Start Last Admin Trade Name Freq PRN Reason Stop Dose Admin Ascorbic Acid 250 mg 10/11/19 10:00 10/16/19 09:32 Vitamin C - PO 250 mg BID AMINA Administration Azithromycin 500 mg 10/12/19 13:00 10/16/19 09:31 Zithromax PO 500 mg DAILY AMINA Administration Benzocaine/Menthol 1 each 10/10/19 17:28 10/12/19 21:25 Cepacol Lozenge - MM 1 each PRN PRN Administration SORE THROAT Cholecalciferol 800 unit 10/11/19 10:00 10/16/19 09:32 Vitamin D3 - PO 800 unit DAILY AMINA Administration Diazepam 2 mg 10/10/19 14:00 10/16/19 06:41 Valium - PO 2 mg TID AMINA Administration Docusate Sodium 100 mg 10/14/19 16:57 10/16/19 09:32 Colace - PO 100 mg BID AMINA Administration Gabapentin 600 mg 10/12/19 14:00 10/16/19 06:41 Neurontin - PO 600 mg TID AMINA Administration Ceftriaxone Sodium 1 gm/ 50 mls @ 200 mls/hr 10/12/19 13:00 10/16/19 09:32 Dextrose IVPB 200 mls/hr DAILY AMINA Administration Protocol Methylprednisolone 4 mg 10/14/19 07:00 10/16/19 06:41 Medrol - PO 10/19/19 06:59 4 mg AM AMINA Administration Methylprednisolone 4 mg 10/16/19 13:00 Medrol - PO 10/16/19 13:01 ONCE ONE Methylprednisolone 4 mg 10/15/19 22:00 10/15/19 22:38 Medrol - PO 10/17/19 22:01 4 mg HS AMINA Administration Pantoprazole Sodium 40 mg 10/14/19 10:00 10/16/19 09:31 Protonix - PO 40 mg DAILY AMINA Administration Senna 2 tab 10/14/19 22:00 10/15/19 22:39 Senna - PO 2 tab HS AMINA Administration Zinc Sulfate 220 mg 10/11/19 10:00 10/16/19 09:31 Orazinc - PO 220 mg BID AMINA Administration IMAGING 10/10/19: * CT chest: Bibasal atelectatic changes, minimal b/l pleural effusion; cannot r/o superimposed pna; small pericardial effusion along inf margin of heart, hepatosplenomegaly * CTAP: No acute process * CT L-spine: L5-S1 minimal central/L paracentral disc bulge and min L paracentral posterior spur formation w/o gross nerve root impingement; L4-L5 level there is questionable min central disc bulge w/o nerve root impingement MRI L Spine 10/11/19- DJD L4/5, L5/S1. L5/S1 disc herniation with extruded disc obliterating the left epidural recesses with mass effect on the L S1 nerve root; L4/5midline herniation lateralizing toward the R with indentation on the R L5 nerve root. no evidence of septic spondylitis, epidural abscess or praraspinal masses. ASSESSMENT/PLAN: 24M w/ no pmhx presents with complaints of LLE pain and weakness with infrequent unproductive cough. #LLE weakness/pain 2/2 acute radiculopathy due to disc herniaton - CT L-spine done; results noted above. - Lumbar MRI- as noted above - Neurosurg consulted (Dr. mario), rec: no acute neurosurgical intervention is indicated - Physical therapy on board - pain management (Dr. Flynn): ORALIA tomorrow - No medical contraindication to EPSI procedure - Neurology consulted (Dr. dumont), recs: increase gabapnetin to 600 mg po tid zanaflex prn - Continue Medrol dosepak - Continue Valium, Gabapentin, Zanaflex, and Morphin for Pain management #Elavated inflamatory markers #Elevated D-dimers # Pneumonia - Covid negative x 3, Flu negative - D-dimer 1028, Ferritin 2975, LD 332, CRP 12.3 - CTA negative for PE,-Bibasilar atelectasis, Duplex negative for DVT - No Disciitis or abscess on MRI L Spine, - 10/12 MRI T Spine: No evidence of discitis, epidural or prevertebral masses or abbesses. No evidence of Disk herniations or cord compression. - Blood Cx negative - Urine culture-No growth - ID consulted, Dr. Cox. abx coverage with zithro D#5 and ceftriaxone D#5 can stop abx tomorrow - Continue Ceftriaxone/Azithromycin, per ID - Pending viral pannel - Quantiferon: negative #Acute Transaminitis #CBD Dilation: - AST/ALT 177/889 - Cont to trend LFTs, improving (trending down) - GI on anastacio, Dr. Hernandez, recs: - hepatitis panel: negative - 10/09 CTAB reviewed: hepatomegaly noted - 10/10 Abdomen u/s ordered: Mild fatty infiltration vs hepatocellular disease. Mild Dilation of CBD 7mm w/o gallstones - 10/12 MRCP: No evidence of dilatation of the common bile duct, common hepatic duct or intrahepatic biliary radicles. No evidence of choledocholithiasis. Poor definition of the body and tail of the pancreas - will advise the Patient to get an out pt evaluation with CTAB after discharge - Avoid hepatotoxic drugs #Pericardial effusion on CT - Echo: EF 60-65%, No evidence of pericardial effusion #DVT Prophylaxis - [employer] PPX, pending Pain management evaluation and epidural injec tion - SCDs #FEN - No standing fluids - Continue to monitor electrolytes - NPO after midnight for ORALIA tomorrow Dispo - Continue to monitor in med-surg, ORALIA tomorrow Visit type - Emergency Visit Emergency Visit: Yes ED Registration Date: 10/10/19 Care time: The patient presented to the Emergency Department on the above date and was hospitalized for further evaluation of their emergent condition. - New Patient This patient is new to me today: No - Critical Care Critical Care patient: No - Discharge Referral Referred to [facility] Med P.C.: No ATTENDING PHYSICIAN STATEMENT I saw and evaluated the patient. I reviewed the resident's note and discussed the case with the resident. I agree with the resident's findings and plan as documented. SUBJECTIVE: OBJECTIVE: ASSESSMENT AND PLAN:
[2019-10-16] MEDS ORDERED: methylPREDNISolone 4 MG TABLET PO ONE (13:00)
--- NOTE | 2019-10-16 13:57 | PN ---
Teaching Attending Note Name of Resident: Min Easley ATTENDING PHYSICIAN STATEMENT I saw and evaluated the patient. I reviewed the resident's note and discussed the case with the resident. I agree with the resident's findings and plan as documented. SUBJECTIVE: Some improvement in pain of LLE limiting range of motion - able to walk 20 feet with PT today. No fever/chills. No sensory loss. OBJECTIVE: Afebrile, Hemodynamically stable. Last Vital Signs Temp Pulse Resp BP Pulse Ox 98.2 F 61 17 120/69 98 10/16/19 09:30 10/16/19 09:30 10/16/19 09:30 10/16/19 09:30 10/16/19 09:30 Heart - S1, S2, RRR Lungs - clear to auscultation Abdomen - soft, non-tender. Bowel Sounds normal. Extremities - No edema, no calf tenderness. MS - Mild tenderness over LS spine. Neuro - AAO x 3. Severe pain limiting neurological exam LLEs. Appears to have good tone and strength distal to knee. Laboratory Results - last 24 hr 10/12/19 07:30 TB Test (QFT) Nil 0.11 TB Test (QFT) Mitogen >10.00 TB Test (QFT) Ag 1 0.17 TB Test (QFT) Ag 2 0.11 TB Test (QFT) Negative TB Positive Criteria Current Medications Generic Name Dose Route Start Last Admin Trade Name Freq PRN Reason Stop Dose Admin Ascorbic Acid 250 mg 10/11/19 10:00 10/16/19 09:32 Vitamin C - PO 250 mg BID AMINA Administration Azithromycin 500 mg 10/12/19 13:00 10/16/19 09:31 Zithromax PO 500 mg DAILY AMINA Administration Benzocaine/Menthol 1 each 10/10/19 17:28 10/12/19 21:25 Cepacol Lozenge - MM 1 each PRN PRN Administration SORE THROAT Cholecalciferol 800 unit 10/11/19 10:00 10/16/19 09:32 Vitamin D3 - PO 800 unit DAILY AMINA Administration Diazepam 2 mg 10/10/19 14:00 10/16/19 06:41 Valium - PO 2 mg TID AMINA Administration Docusate Sodium 100 mg 10/14/19 16:57 10/16/19 09:32 Colace - PO 100 mg BID AMINA Administration Gabapentin 600 mg 10/12/19 14:00 10/16/19 06:41 Neurontin - PO 600 mg TID AMINA Administration Ceftriaxone Sodium 1 gm/ 50 mls @ 200 mls/hr 10/12/19 13:00 10/16/19 09:32 Dextrose IVPB 200 mls/hr DAILY AMINA Administration Protocol Methylprednisolone 4 mg 10/14/19 07:00 10/16/19 06:41 Medrol - PO 10/19/19 06:59 4 mg AM AMINA Administration Methylprednisolone 4 mg 10/15/19 22:00 10/15/19 22:38 Medrol - PO 10/17/19 22:01 4 mg HS AMINA Administration Pantoprazole Sodium 40 mg 10/14/19 10:00 10/16/19 09:31 Protonix - PO 40 mg DAILY AMINA Administration Senna 2 tab 10/14/19 22:00 10/15/19 22:39 Senna - PO 2 tab HS AMINA Administration Zinc Sulfate 220 mg 10/11/19 10:00 10/16/19 09:31 Orazinc - PO 220 mg BID AMINA Administration ASSESSMENT AND PLAN: 24 year old male with history of DJD Spine with disc disease, complains of 4 day history of LLE pain starting in his L glut radiating down the back of his L leg to his toes. Recent febrile illness and sinus congestion/cough, now resolved. CT chest: Bibasal atelectatic changes, minimal b/l pleural effusion; cannot r/o superimposed pna; small pericardial effusion along inferior margin of heart, hepatosplenomegaly CTA/P: No acute process CT L-spine: L5-S1 minimal central/L paracentral disc bulge and min L paracentral posterior spur formation w/o gross nerve root impingement; L4-L5 level there is questionable min central disc bulge w/o nerve root impingement 1. Acute Disc Herniation with radiculopathy MRI L Spine - DJD L4/5, L5/S1. L5/S1 disc herniation with extruded disc obliterating the left epidural recesses with mass effect on the L S1 nerve root; L4/5midline herniation lateralizing toward the R with indentation on the R L5 nerve root. no evidence of septic spondylitis, epidural abscess or praraspinal masses. Given Decadron IV x 2, Valium, Gabapentin, Morphine PRN, on Medrol dose pack. Neurosurgery recommends spinal injection, Pain Management has scheduled L transforminal epidural injection L4/5 for 10/17/19 Neurology evaluated and recommended increasing Gabapentin dosing with Zanaflex PRN. Currently on Valium. No medical contraindication to EPSI procedure. 2. Pneumonia DDIMER/CRP/Ferritin/ESR elevated due to infection/inflammation CTA chest - no PE, bibasilar atelectasis/Duplex LEs - No DVT. No Disciitis or abscess on MRI L Spine, MRI T Spine -no disciitis/abscess, no herniation, no compression. COVID PCR negative/Flu negative. Viral panel pending. Urine Cx negative. Blood Cx negative. Afebrile, Hemodynamically Stable - Zosyn de-escalated by ID to complete a course of Ceftriaxone/Azithromycin - last day today. No contraindication for EPSI from medical perspective. 3. Elevated Transaminases, likely sec to enthusiastic tylenol use. Minimal CBD dilatation on Abdomen US MRCP - normal biliary tree, no CBD dilatation, pancreas not fully visualized, recommendation for CT A/P - can be done as out-patient. LFTs improving, no abdominal symptoms. GI following DVT Px - Lovenox held pending Pain management scheduling of epidural injection.
[2019-10-16] MEDS: SENNOSIDES 8.6MG TABLET (FP) PO SCH (21:34)
--- NOTE | 2019-10-16 21:40 | CONSULT ---
Consult Consult Specialty:: Interventional Spine & [facility] Reason for Consultation:: Transforaminal Epidural Steroid Injection - History of Present Illness Chief Complaint: Low back and Left LEg pain History of Present Illness: Please see previous consult for history. Patient was reevaluated today for transforaminal epidural steroid injection at the L4 and L5 foramens, treatment of the patient's lumbar radiculopathy. His LFTs are downtrending. He has been cleared from a medical standpoint to have the procedure. He is no longer on antibiotics and longer has an active infection. He continues to have severe pain which is limiting his ambulation and function and is an active deterrent. Safe discharge home. He has trialed oral analgesics including Tylenol, prednisone, gabapentin without relief. Patient would like to go over the risks and benefits of the procedure. - History Source History Provided By: Patient - Smoking History Smoking history: Never smoked Have you smoked in the past 12 months: No Home Medications - Allergies Allergies/Adverse Reactions: Allergies Allergy/AdvReac Type Severity Reaction Status Date / Time No Known Allergies Allergy Verified 10/10/19 00:48 - Home Medications Home Medications: Ambulatory Orders Methocarbamol [Robaxin -] 500 mg PO BID PRN 10/11/19 Review of Systems - Review of Systems Constitutional: reports: No Symptoms Eyes: reports: No Symptoms HENT: reports: No Symptoms Neck: reports: No Symptoms Cardiovascular: reports: No Symptoms Respiratory: reports: No Symptoms Gastrointestinal: reports: No Symptoms Genitourinary: reports: No Symptoms Musculoskeletal: reports: Back Pain Integumentary: reports: No Symptoms Neurological: reports: Parasthesia Hematology/Lymphatic: reports: No Symptoms Psychiatric: reports: No Symptoms Physical Exam Vital Signs: Vital Signs Temperature 98.4 F 10/16/19 14:53 Pulse Rate 71 10/16/19 14:53 Respiratory Rate 18 10/16/19 14:53 Blood Pressure 124/66 10/16/19 14:53 O2 Sat by Pulse Oximetry (%) 98 10/16/19 09:30 Constitutional: Yes: No Distress, Calm Eyes: Yes: Conjunctiva Clear, EOM Intact HENT: Yes: Atraumatic, Normocephalic Neck: Yes: Trachea Midline Cardiovascular: Yes: Regular Rate and Rhythm Respiratory: Yes: Regular Gastrointestinal: Yes: Soft Musculoskeletal: Yes: Back Pain Neurological: Yes: Alert, Oriented, Other (SLR postive) ...Motor Strength: WNL Psychiatric: Yes: Oriented Labs: CBC, BMP 10/15/19 07:53 10/15/19 07:53 Imaging - Results MRI: Image Reviewed Assessment/Plan The patient's pain is secondary to lumbar radiculopathy secondary to an L5-S1 disc herniation lateralizing to the left abutting the L5 and S1 nerve roots with a hyperintensity zone likely contributing to a both a chemical radiculitis and a mechanical radiculopathy. Patient does not have any focal neuro deficit. 1. I will perform a left L4 and L5 transforaminal epidural steroid injection under fluoroscopic guidance. 2. The procedure was discussed with the patient the risks and benefits were explained. The patient is in agreement with this plan. Thank you for your consult, Steven Flynn DO Interventional spine and pain management
[2019-10-17] MEDS: GABAPENTIN 300 MG CAPSULE PO SCH ×3 (05:55→21:39)
[2019-10-17] MEDS: diazePAM 2 MG TABLET PO SCH ×3 (05:55→21:39)
[2019-10-17] MEDS: methylPREDNISolone 4 MG TABLET PO SCH ×2 (06:04→21:39)
[2019-10-17 08:39] LABS: BASO % 0.4 % (0-2.0); EOS % 0.2 % (0-4.5); HEMATOCRIT 37.6 % (35.4-49); HEMOGLOBIN 12.5 GM/dL (11.7-16.9); LYMPH % 42.1 % (8-40); MCH 29.8 pg (25.7-33.7); MCHC 33.3 g/dl (32.0-35.9); MEAN CELL VOLUME 89.5 fl (80-96); MEAN PLT VOLUME 6.7 fl (7.5-11.1); MONO % 13.5 % (3.8-10.2); NEUT % 43.8 % (42.8-82.8); PLATELET COUNT 307 K/MM3 (134-434); RBC 4.21 M/mm3 (4.00-5.60); RDW 13.7 % (11.9-15.9); WHITE BLOOD COUNT 7.2 K/mm3 (4.0-10.0)
[2019-10-17 09:10] LABS: ALBUMIN 2.9 g/dl (3.4-5.0); BILIRUBIN,TOTAL 0.8 mg/dL (0.2-1); CREATININE 0.8 mg/dL (0.55-1.3); PHOSPHOROUS 3.4 mg/dL (2.5-4.9); TOT PROT 7.2 g/dl (6.4-8.2)
[2019-10-17 09:11] LABS: CALCIUM 9.2 mg/dL (8.5-10.1); MAGNESIUM 2.3 mg/dL (1.8-2.4); POTASSIUM 4.4 mmol/L (3.5-5.1)
[2019-10-17] MEDS ORDERED: DEXTROSE 5%-WATER - 50 ML IVPB ONE (09:24)
[2019-10-17] MEDS ORDERED: cefTRIAXone SODIUM 1 GM VIAL ONE (09:24)
[2019-10-17] MEDS: CEFTRIAXONE 1 GM in DEXTROSE 5%-WATER - 50 ML IVPB SCH (10:10)
[2019-10-17] MEDS ORDERED: MIDAZOLAM HCL 2 MG/2 ML SINGLE DOSE VIAL ONE (10:50)
[2019-10-17] MEDS ORDERED: LIDOCAINE HCL 1%, 10 MG/ML (20ML VIAL) ONE (11:12)
[2019-10-17] MEDS ORDERED: DEXAMETHASONE SOD PHOSPHATE 4 MG/1 ML VIAL ONE (11:12)
[2019-10-17] MEDS ORDERED: DEXAMETHASONE SOD PHOSPHATE/PF 10 MG/ML SDV ONE (11:15)
[2019-10-17] MEDS ORDERED: LIDOCAINE HCL/PF 1% SDV 5ML VIAL ONE (11:34)
[2019-10-17] MEDS ORDERED: LIDOCAINE HCL 1% PRESERVATIVE FREE - 30ML VIAL IJ ONE (11:36)
[2019-10-17] MEDS ORDERED: IOHEXOL 180 MG/1 ML ML IJ ONE (11:36)
[2019-10-17] MEDS ORDERED: PT OWN MED DRAWER 7, Y5N ONE (13:08)
[2019-10-17] MEDS: DOCUSATE SODIUM 100 MG CAPSULE (FP) PO SCH ×2 (13:11→21:39)
[2019-10-17] MEDS: PANTOPRAZOLE 40 MG TABLET PO SCH (13:11)
[2019-10-17] MEDS: CHOLECALCIFEROL (VIT D3) 400 UNIT (10 MCG) TABLET PO SCH (13:12)
[2019-10-17] MEDS: AZITHROMYCIN 500 MG TABLET PO SCH (13:12)
[2019-10-17] MEDS: ASCORBIC ACID 250 MG TABLET (FP) PO SCH ×2 (13:12→22:13)
[2019-10-17] MEDS: ZINC SULFATE 220 MG CAPSULE (FP) PO SCH ×2 (13:12→21:39)
--- NOTE | 2019-10-17 13:53 | PN ---
Physical Exam: SUBJECTIVE: Patient seen and examined at bedside, No new complaints OBJECTIVE: Vital Signs Period Temp Pulse Resp BP Sys/Sims Pulse Ox Last 24 Hr 97.2 F-98.6 F 56-77 18-18 124-142/59-77 97-99 GENERAL: The patient is awake, alert, and fully oriented, in acute distress. HEAD: Normal with no signs of trauma. EYES: PERRL, extraocular movements intact, sclera anicteric, conjunctiva clear. No ptosis. ENT: Ears normal, nares patent, oropharynx clear without exudates, moist mucous membranes. NECK: Trachea midline, full range of motion, supple. LUNGS: Breath sounds equal, clear to auscultation bilaterally, no wheezes, no crackles, no accessory muscle use. HEART: Regular rate and rhythm, S1, S2 without murmur, rub or gallop. ABDOMEN: Soft, nontender, nondistended, normoactive bowel sounds, no guarding, no rebound, no hepatosplenomegaly, no masses. EXTREMITIES: 2+ pulses, warm, well-perfused, no edema. able to move RLE, limited movement of LLE, due to pain NEUROLOGICAL: Cranial nerves II through XII grossly intact. Normal speech, gait not observed. Strength 4/5 all extremities, sensation intact in all extremities, negative babinski reflex PSYCH: Normal mood, normal affect. SKIN: Warm, dry, normal turgor, no rashes or lesions noted Laboratory Results - last 24 hr 10/17/19 10/17/19 07:45 07:45 WBC 7.2 RBC 4.21 Hgb 12.5 Hct 37.6 MCV 89.5 MCH 29.8 MCHC 33.3 RDW 13.7 Plt Count 307 MPV 6.7 L Absolute Neuts (auto) 3.2 Neutrophils % 43.8 D Lymphocytes % 42.1 H D Monocytes % 13.5 H Eosinophils % 0.2 D Basophils % 0.4 Nucleated RBC % 0 Sodium 139 Potassium 4.4 Chloride 104 Carbon Dioxide 28 Anion Gap 7 L BUN 19.0 H Creatinine 0.8 Est GFR (CKD-EPI)AfAm 146.96 Est GFR (CKD-EPI)NonAf 126.80 Random Glucose 81 Calcium 9.2 Phosphorus 3.4 Magnesium 2.3 Total Bilirubin 0.8 AST 30 ALT 157 H Alkaline Phosphatase 220 H Total Protein 7.2 Albumin 2.9 L Active Medications Generic Name Dose Route Start Last Admin Trade Name Cristóbalq PRN Reason Stop Dose Admin Ascorbic Acid 250 mg 10/11/19 10:00 10/17/19 13:12 Vitamin C - PO 250 mg BID AMINA Administration Azithromycin 500 mg 10/12/19 13:00 10/17/19 13:12 Zithromax PO 500 mg DAILY AMINA Administration Benzocaine/Menthol 1 each 10/10/19 17:28 10/12/19 21:25 Cepacol Lozenge - MM 1 each PRN PRN Administration SORE THROAT Cholecalciferol 800 unit 10/11/19 10:00 10/17/19 13:12 Vitamin D3 - PO 800 unit DAILY AMINA Administration Diazepam 2 mg 10/10/19 14:00 10/17/19 13:11 Valium - PO 2 mg TID AMINA Administration Docusate Sodium 100 mg 10/14/19 16:57 10/17/19 13:11 Colace - PO 100 mg BID AMINA Administration Gabapentin 600 mg 10/12/19 14:00 10/17/19 13:11 Neurontin - PO 600 mg TID AMINA Administration Ceftriaxone Sodium 1 gm/ 50 mls @ 200 mls/hr 10/12/19 13:00 10/17/19 10:10 Dextrose IVPB 200 mls/hr DAILY AMINA Administration Protocol Methylprednisolone 4 mg 10/14/19 07:00 10/17/19 06:04 Medrol - PO 10/19/19 06:59 4 mg AM AMINA Administration Methylprednisolone 4 mg 10/15/19 22:00 10/16/19 21:34 Medrol - PO 10/17/19 22:01 4 mg HS AMINA Administration Pantoprazole Sodium 40 mg 10/14/19 10:00 10/17/19 13:11 Protonix - PO 40 mg DAILY AMINA Administration Senna 2 tab 10/14/19 22:00 10/16/19 21:34 Senna - PO 2 tab HS AMINA Administration Zinc Sulfate 220 mg 10/11/19 10:00 10/17/19 13:12 Orazinc - PO 220 mg BID AMINA Administration IMAGING 10/10/19: * CT chest: Bibasal atelectatic changes, minimal b/l pleural effusion; cannot r/o superimposed pna; small pericardial effusion along inf margin of heart, hepatosplenomegaly * CTAP: No acute process * CT L-spine: L5-S1 minimal central/L paracentral disc bulge and min L paracentral posterior spur formation w/o gross nerve root impingement; L4-L5 level there is questionable min central disc bulge w/o nerve root impingement MRI L Spine 10/11/19- DJD L4/5, L5/S1. L5/S1 disc herniation with extruded disc obliterating the left epidural recesses with mass effect on the L S1 nerve root; L4/5midline herniation lateralizing toward the R with indentation on the R L5 nerve root. no evidence of septic spondylitis, epidural abscess or praraspinal masses. ASSESSMENT/PLAN: 24M w/ no pmhx presents with complaints of LLE pain and weakness with infrequent unproductive cough. #LLE weakness/pain 2/2 acute radiculopathy due to disc herniaton - CT L-spine done; results noted above. - Lumbar MRI- as noted above - Neurosurg consulted (Dr. mario), rec: no acute neurosurgical intervention is indicated - Physical therapy on board - pain management (Dr. Flynn): s/p L4-L5 transforminal epidural steroid injection, D #0 - Neurology consulted (Dr. dumont), recs: increase gabapnetin to 600 mg po tid zanaflex prn - Continue Medrol dosepak - Continue Valium, Gabapentin, Zanaflex, and Morphin for Pain management #Elavated inflamatory markers #Elevated D-dimers # Pneumonia - Covid negative x 3, Flu negative - D-dimer 1028, Ferritin 2975, LD 332, CRP 12.3 - CTA negative for PE,-Bibasilar atelectasis, Duplex negative for DVT - No Disciitis or abscess on MRI L Spine, - 10/12 MRI T Spine: No evidence of discitis, epidural or prevertebral masses or abbesses. No evidence of Disk herniations or cord compression. - Blood Cx negative - Urine culture-No growth - ID consulted, Dr. Cox. Completed abx coverage with zithro D#7 and ceftriaxone D#7 - Pending viral pannel - Quantiferon: negative #Acute Transaminitis #CBD Dilation: - AST/ALT 177/889 - Cont to trend LFTs, improving (trending down) - GI on borad, Dr. Hernandez, recs: - hepatitis panel: negative - 10/09 CTAB reviewed: hepatomegaly noted - 10/10 Abdomen u/s ordered: Mild fatty infiltration vs hepatocellular disease. Mild Dilation of CBD 7mm w/o gallstones - 10/12 MRCP: No evidence of dilatation of the common bile duct, common hepatic duct or intrahepatic biliary radicles. No evidence of choledocholithiasis. Poor definition of the body and tail of the pancreas - will advise the Patient to get an out pt evaluation with CTAB after discharge - Avoid hepatotoxic drugs #Pericardial effusion on CT - Echo: EF 60-65%, No evidence of pericardial effusion #DVT Prophylaxis - [employer] PPX, pending Pain management evaluation and epidural injection - SCDs #FEN - No standing fluids - Continue to monitor electrolytes - NPO after midnight for ORALIA tomorrow Dispo - Continue to monitor in med-surg, s/p ORALIA Visit type - Emergency Visit Emergency Visit: Yes ED Registration Date: 10/10/19 Care time: The patient presented to the Emergency Department on the above date and was hospitalized for further evaluation of their emergent condition. - New Patient This patient is new to me today: No - Critical Care Critical Care patient: No - Discharge Referral Referred to [facility] Med P.C.: No ATTENDING PHYSICIAN STATEMENT I saw and evaluated the patient. I reviewed the resident's note and discussed the case with the resident. I agree with the resident's findings and plan as documented. SUBJECTIVE: OBJECTIVE: ASSESSMENT AND PLAN:
--- NOTE | 2019-10-17 13:57 | PROC ---
Procedure Note Procedure: Pre procedure Diagnosis: Lumbar Radiculopathy Post Procedure Diagnosis: same Anesthesia: Local Procedure Performed: Left L4 and L5 Transforaminal Epidural Steroid Injection After the risks and benefits were explained, informed consent was obtained. The patient was then taken to the procedure room and positioned prone on the procedure table. Time out was performed. The region overlying the left L4 and L5 neural foramens were identified using fluoroscopy. The skin was prepped and draped in the usual sterile fashion. The skin and soft tissues were anesthetized using 1% lidocaine. The neural foramens were identified with the fluoroscopic beam directed in a right oblique direction. 2 22 gauge 5 inch spinal needles were then introduced into the appropriate neural foramens using intermittent fluoroscopic guidance using AP, oblique and lateral views as indicated. Needle placement was then confirmed with the injection of Omnipaque 180. Epidural flow was noted and the nerve root was outlined. No vascular uptake was noted. Next, a mixture 1.5 cc of dexamethasone and Normal saline followed by 0.5 cc of 1% lidocaine was then injected around the Left L4 and L5 spinal nerves. The patient tolerated the procedure well and there were no complications. The patient was taken to the post procedure recovery area in good condition. Vital signs remained stable before, during, and after the procedure. The patient was given oral and written follow-up instructions. The patient was given a follow up appointment with me in the near future. Steven Flynn DO
--- NOTE | 2019-10-17 16:14 | PN ---
Progress Note (short form) - Note Progress Note: 24 year old male history of low back pain for two years he has been treated conservative. He is on gabapentin, morphine.Patient is having severe low abck pain shooting down to left lower extremity pain. He has mri of L spine showed there is large L5-s1 disc prolapse and herniation at left side s1 nerve. His pain is wose with coughing, stiting and walking. Michelle wa seen by neurosurgery and not a candidate and being planned for epidural.Jackelyn is not able to do much activity becaue of pain. - Afebrile, feeling better, sleepy. Patient got CARLOS and feeling better. Less pain and able to walk around. NEUROLOGICAL EXAMINATION Alert oriented x 3, neck is supple vss, afebrile eomi, pupils reactive strength is normal in upper extremity THere is slr is positive on left side both legs hip flexion , extension, planter flexion and extension is normal both aries e left leg knee flexion and extension diminished effort reflex are symmetrical -- exam remain unchanged, difficult to left left leg in bed due to pain and able to walk with pt mri of L spine reviewed neurosurgery and pain management consult reviewed Assessment/Plan Left L5-S1 radiculopathy, no evidence of cord compression or cauda equina syndrome. Jackelyn has been on steroid and now on gabepntin, pt and waiting for CARLOS PLAN - continue gabapnetin to 600 mg po tid - zanaflex prn -got carlos and feeling better, can be discharge home Dylon Botello MD
--- NOTE | 2019-10-17 17:31 | PN ---
Teaching Attending Note Name of Resident: Min Easley ATTENDING PHYSICIAN STATEMENT I saw and evaluated the patient. I reviewed the resident's note and discussed the case with the resident. I agree with the resident's findings and plan as documented. SUBJECTIVE: seen and examined OBJECTIVE: Last Vital Signs Temp Pulse Resp BP Pulse Ox 98.0 F 75 18 125/73 99 10/17/19 14:36 10/17/19 14:36 10/17/19 14:36 10/17/19 14:36 10/17/19 12:32 Heart - S1, S2, RRR Lungs - clear to auscultation Abdomen - soft, non-tender. Bowel Sounds normal. Extremities - No edema, no calf tenderness. MS - Mild tenderness over LS spine. Neuro - AAO x 3. no pain, 5/5 muscle strength throughout, no sensory deficit CBCD WBC 7.2 K/mm3 (4.0-10.0) 10/17/19 07:45 RBC 4.21 M/mm3 (4.00-5.60) 10/17/19 07:45 Hgb 12.5 GM/dL (11.7-16.9) 10/17/19 07:45 Hct 37.6 % (35.4-49) 10/17/19 07:45 MCV 89.5 fl (80-96) 10/17/19 07:45 MCHC 33.3 g/dl (32.0-35.9) 10/17/19 07:45 RDW 13.7 % (11.9-15.9) 10/17/19 07:45 Plt Count 307 K/MM3 (134-434) 10/17/19 07:45 MPV 6.7 fl (7.5-11.1) L 10/17/19 07:45 CMP Sodium 139 mmol/L (136-145) 10/17/19 07:45 Potassium 4.4 mmol/L (3.5-5.1) 10/17/19 07:45 Chloride 104 mmol/L (98-107) 10/17/19 07:45 Carbon Dioxide 28 mmol/L (21-32) 10/17/19 07:45 Anion Gap 7 MMOL/L (8-16) L 10/17/19 07:45 BUN 19.0 mg/dL (7-18) H 10/17/19 07:45 Creatinine 0.8 mg/dL (0.55-1.3) 10/17/19 07:45 Calcium 9.2 mg/dL (8.5-10.1) 10/17/19 07:45 Total Bilirubin 0.8 mg/dL (0.2-1) 10/17/19 07:45 AST 30 U/L (15-37) 10/17/19 07:45 ALT 157 U/L (13-61) H 10/17/19 07:45 Alkaline Phosphatase 220 U/L (45-117) H 10/17/19 07:45 Total Protein 7.2 g/dl (6.4-8.2) 10/17/19 07:45 Albumin 2.9 g/dl (3.4-5.0) L 10/17/19 07:45 Active Medications Ascorbic Acid (Vitamin C -) 250 mg PO BID [facility] Last Admin: 10/17/19 13:12 Dose: 250 mg Documented by: Azithromycin (Zithromax) 500 mg PO DAILY [facility] Last Admin: 10/17/19 13:12 Dose: 500 mg Documented by: Benzocaine/Menthol (Cepacol Lozenge -) 1 each MM PRN PRN PRN Reason: SORE THROAT Last Admin: 10/12/19 21:25 Dose: 1 each Documented by: Cholecalciferol (Vitamin D3 -) 800 unit PO DAILY [facility] Last Admin: 10/17/19 13:12 Dose: 800 unit Documented by: Diazepam (Valium -) 2 mg PO TID [facility] Last Admin: 10/17/19 13:11 Dose: 2 mg Documented by: Docusate Sodium (Colace -) 100 mg PO BID [facility] Last Admin: 10/17/19 13:11 Dose: 100 mg Documented by: Gabapentin (Neurontin -) 600 mg PO TID [facility] Last Admin: 10/17/19 13:11 Dose: 600 mg Documented by: Ceftriaxone Sodium 1 gm/ (Dextrose) 50 mls @ 200 mls/hr IVPB DAILY [facility]; Protocol Last Admin: 10/17/19 10:10 Dose: 200 mls/hr Documented by: Methylprednisolone (Medrol -) 4 mg PO AM [facility] Stop: 10/19/19 06:59 Last Admin: 10/17/19 06:04 Dose: 4 mg Documented by: Methylprednisolone (Medrol -) 4 mg PO HS [facility] Stop: 10/17/19 22:01 Last Admin: 10/16/19 21:34 Dose: 4 mg Documented by: Pantoprazole Sodium (Protonix -) 40 mg PO DAILY [facility] Last Admin: 10/17/19 13:11 Dose: 40 mg Documented by: Senna (Senna -) 2 tab PO HS [facility] Last Admin: 10/16/19 21:34 Dose: 2 tab Documented by: Zinc Sulfate (Orazinc -) 220 mg PO BID [facility] Last Admin: 10/17/19 13:12 Dose: 220 mg Documented by: ASSESSMENT AND PLAN: 24 year old male with history of DJD Spine with disc disease, complains of 4 day history of LLE pain starting in his L glut radiating down the back of his L leg to his toes. Recent febrile illness and sinus congestion/cough, now resolved. # Acute Disc Herniation with radiculopathy MRI L Spine reviewed got epidural injection today for pain management no focal deficit encourage to ambulate PT and discharge plannning neurosurgery consult appreciated neurology consult appreciated pain management consultation appreciated Pneumonia (completed Abx) LFT elevated DVT Prophylaxis
[2019-10-17] MEDS: SENNOSIDES 8.6MG TABLET (FP) PO SCH (21:39)
[2019-10-18] MEDS: diazePAM 2 MG TABLET PO SCH ×2 (06:26→14:40)
[2019-10-18] MEDS: methylPREDNISolone 4 MG TABLET PO SCH (06:26)
[2019-10-18] MEDS: GABAPENTIN 300 MG CAPSULE PO SCH ×2 (06:26→14:40)
[2019-10-18 08:35] LABS: BASO % 0.1 % (0-2.0); HEMATOCRIT 37.5 % (35.4-49); HEMOGLOBIN 12.5 GM/dL (11.7-16.9); LYMPH % 26.4 % (8-40); MCH 29.8 pg (25.7-33.7); MCHC 33.4 g/dl (32.0-35.9); MEAN CELL VOLUME 89.1 fl (80-96); MEAN PLT VOLUME 6.9 fl (7.5-11.1); MONO % 11.2 % (3.8-10.2); NEUT % 62.3 % (42.8-82.8); PLATELET COUNT 292 K/MM3 (134-434); RBC 4.21 M/mm3 (4.00-5.60); RDW 13.9 % (11.9-15.9); WHITE BLOOD COUNT 10.3 K/mm3 (4.0-10.0)
[2019-10-18 09:01] LABS: ALBUMIN 3.1 g/dl (3.4-5.0); BILIRUBIN,TOTAL 0.7 mg/dL (0.2-1); BLOOD UREA NITROGEN 22.4 mg/dL (7-18); CALCIUM 9.6 mg/dL (8.5-10.1); CREATININE 0.8 mg/dL (0.55-1.3); MAGNESIUM 2.4 mg/dL (1.8-2.4); PHOSPHOROUS 3.6 mg/dL (2.5-4.9); POTASSIUM 4.2 mmol/L (3.5-5.1); TOT PROT 7.3 g/dl (6.4-8.2)
[2019-10-18] MEDS ORDERED: DEXTROSE 5%-WATER - 50 ML IVPB ONE (09:48)
[2019-10-18] MEDS ORDERED: cefTRIAXone SODIUM 1 GM VIAL ONE (09:48)
[2019-10-18] MEDS: CHOLECALCIFEROL (VIT D3) 400 UNIT (10 MCG) TABLET PO SCH (10:00)
[2019-10-18] MEDS: ZINC SULFATE 220 MG CAPSULE (FP) PO SCH (10:00)
[2019-10-18] MEDS: DOCUSATE SODIUM 100 MG CAPSULE (FP) PO SCH (10:00)
[2019-10-18] MEDS: PANTOPRAZOLE 40 MG TABLET PO SCH (10:00)
[2019-10-18] MEDS: CEFTRIAXONE 1 GM in DEXTROSE 5%-WATER - 50 ML IVPB SCH (10:01)
[2019-10-18] MEDS: AZITHROMYCIN 500 MG TABLET PO SCH (11:21)
[2019-10-18] MEDS: ASCORBIC ACID 250 MG TABLET (FP) PO SCH (11:21)
--- NOTE | 2019-10-18 12:29 | PN ---
Progress Note, Physician - Current Medication List Current Medications: Active Medications Ascorbic Acid (Vitamin C -) 250 mg PO BID [facility] Last Admin: 10/18/19 11:21 Dose: 250 mg Documented by: Azithromycin (Zithromax) 500 mg PO DAILY [facility] Last Admin: 10/18/19 11:21 Dose: 500 mg Documented by: Benzocaine/Menthol (Cepacol Lozenge -) 1 each MM PRN PRN PRN Reason: SORE THROAT Last Admin: 10/12/19 21:25 Dose: 1 each Documented by: Cholecalciferol (Vitamin D3 -) 800 unit PO DAILY [facility] Last Admin: 10/18/19 10:00 Dose: 800 unit Documented by: Diazepam (Valium -) 2 mg PO TID [facility] Last Admin: 10/18/19 06:26 Dose: 2 mg Documented by: Docusate Sodium (Colace -) 100 mg PO BID [facility] Last Admin: 10/18/19 10:00 Dose: 100 mg Documented by: Gabapentin (Neurontin -) 600 mg PO TID [facility] Last Admin: 10/18/19 06:26 Dose: 600 mg Documented by: Ceftriaxone Sodium 1 gm/ (Dextrose) 50 mls @ 200 mls/hr IVPB DAILY [facility]; Protocol Last Admin: 10/18/19 10:01 Dose: 200 mls/hr Documented by: Methylprednisolone (Medrol -) 4 mg PO AM [facility] Stop: 10/19/19 06:59 Last Admin: 10/18/19 06:26 Dose: 4 mg Documented by: Pantoprazole Sodium (Protonix -) 40 mg PO DAILY [facility] Last Admin: 10/18/19 10:00 Dose: 40 mg Documented by: Senna (Senna -) 2 tab PO HS [facility] Last Admin: 10/17/19 21:39 Dose: 2 tab Documented by: Zinc Sulfate (Orazinc -) 220 mg PO BID [facility] Last Admin: 10/18/19 10:00 Dose: 220 mg Documented by: - Objective Vital Signs: Vital Signs Temperature 97.9 F 10/18/19 09:00 Pulse Rate 76 10/18/19 09:00 Respiratory Rate 18 10/18/19 09:00 Blood Pressure 122/72 10/18/19 09:00 O2 Sat by Pulse Oximetry (%) 98 10/18/19 09:00 Labs: CBC, BMP 10/18/19 08:15 10/18/19 08:15 INR, PTT INR 1.07 (0.83-1.09) 10/10/19 04:03
--- NOTE | 2019-10-18 13:42 | PN ---
Teaching Attending Note Name of Resident: Min Easley ATTENDING PHYSICIAN STATEMENT I saw and evaluated the patient. I reviewed the resident's note and discussed the case with the resident. I agree with the resident's findings and plan as documented. SUBJECTIVE: seen and examined OBJECTIVE: Last Vital Signs Temp Pulse Resp BP Pulse Ox 97.9 F 76 18 122/72 98 10/18/19 09:00 10/18/19 09:00 10/18/19 09:00 10/18/19 09:00 10/18/19 09:00 Heart - S1, S2, RRR Lungs - clear to auscultation Abdomen - soft, non-tender. Bowel Sounds normal. Extremities - No edema, no calf tenderness. MS - Mild tenderness over LS spine. Neuro - AAO x 3. no pain, 5/5 muscle strength throughout, no sensory deficit CBCD WBC 10.3 K/mm3 (4.0-10.0) H 10/18/19 08:15 RBC 4.21 M/mm3 (4.00-5.60) 10/18/19 08:15 Hgb 12.5 GM/dL (11.7-16.9) 10/18/19 08:15 Hct 37.5 % (35.4-49) 10/18/19 08:15 MCV 89.1 fl (80-96) 10/18/19 08:15 MCHC 33.4 g/dl (32.0-35.9) 10/18/19 08:15 RDW 13.9 % (11.9-15.9) 10/18/19 08:15 Plt Count 292 K/MM3 (134-434) 10/18/19 08:15 MPV 6.9 fl (7.5-11.1) L 10/18/19 08:15 CMP Sodium 138 mmol/L (136-145) 10/18/19 08:15 Potassium 4.2 mmol/L (3.5-5.1) 10/18/19 08:15 Chloride 103 mmol/L (98-107) 10/18/19 08:15 Carbon Dioxide 29 mmol/L (21-32) 10/18/19 08:15 Anion Gap 5 MMOL/L (8-16) L 10/18/19 08:15 BUN 22.4 mg/dL (7-18) H 10/18/19 08:15 Creatinine 0.8 mg/dL (0.55-1.3) 10/18/19 08:15 Calcium 9.6 mg/dL (8.5-10.1) 10/18/19 08:15 Total Bilirubin 0.7 mg/dL (0.2-1) 10/18/19 08:15 AST 26 U/L (15-37) 10/18/19 08:15 ALT 137 U/L (13-61) H 10/18/19 08:15 Alkaline Phosphatase 213 U/L (45-117) H 10/18/19 08:15 Total Protein 7.3 g/dl (6.4-8.2) 10/18/19 08:15 Albumin 3.1 g/dl (3.4-5.0) L 10/18/19 08:15 Active Medications Ascorbic Acid (Vitamin C -) 250 mg PO BID [facility] Last Admin: 10/18/19 11:21 Dose: 250 mg Documented by: Benzocaine/Menthol (Cepacol Lozenge -) 1 each MM PRN PRN PRN Reason: SORE THROAT Last Admin: 10/12/19 21:25 Dose: 1 each Documented by: Cholecalciferol (Vitamin D3 -) 800 unit PO DAILY [facility] Last Admin: 10/18/19 10:00 Dose: 800 unit Documented by: Diazepam (Valium -) 2 mg PO TID [facility] Last Admin: 10/18/19 06:26 Dose: 2 mg Documented by: Docusate Sodium (Colace -) 100 mg PO BID [facility] Last Admin: 10/18/19 10:00 Dose: 100 mg Documented by: Gabapentin (Neurontin -) 600 mg PO TID [facility] Last Admin: 10/18/19 06:26 Dose: 600 mg Documented by: Methylprednisolone (Medrol -) 4 mg PO AM [facility] Stop: 10/19/19 06:59 Last Admin: 10/18/19 06:26 Dose: 4 mg Documented by: Pantoprazole Sodium (Protonix -) 40 mg PO DAILY [facility] Last Admin: 10/18/19 10:00 Dose: 40 mg Documented by: Senna (Senna -) 2 tab PO HS [facility] Last Admin: 10/17/19 21:39 Dose: 2 tab Documented by: Zinc Sulfate (Orazinc -) 220 mg PO BID [facility] Last Admin: 10/18/19 10:00 Dose: 220 mg Documented by: ASSESSMENT AND PLAN: 24 year old male with history of DJD Spine with disc disease, complains of 4 day history of LLE pain starting in his L glut radiating down the back of his L leg to his toes. Recent febrile illness and sinus congestion/cough, now resolved. # Acute Disc Herniation with radiculopathy MRI L Spine reviewed got epidural injection today for pain management no focal deficit encourage to ambulate PT and discharge plannning neurosurgery consult appreciated neurology consult appreciated pain management consultation appreciated Pneumonia (completed Abx) LFT elevated DVT Prophylaxis
--- NOTE | 2019-10-18 14:38 | DS ---
Physical Exam: SUBJECTIVE: Patient seen and examined at bedside, report improvement of his pain and motor functions of his left foot. He reports that he would like to continue PT therapy at home. OBJECTIVE: Vital Signs Period Temp Pulse Resp BP Sys/Sims Pulse Ox Last 24 Hr 97.6 F-98.4 F 67-95 18-20 121-131/65-73 96-98 PHYSICAL EXAM GENERAL: The patient is awake, alert, and fully oriented, in acute distress. HEAD: Normal with no signs of trauma. EYES: PERRL, extraocular movements intact, sclera anicteric, conjunctiva clear. No ptosis. ENT: Ears normal, nares patent, oropharynx clear without exudates, moist mucous membranes. NECK: Trachea midline, full range of motion, supple. LUNGS: Breath sounds equal, clear to auscultation bilaterally, no wheezes, no crackles, no accessory muscle use. HEART: Regular rate and rhythm, S1, S2 without murmur, rub or gallop. ABDOMEN: Soft, nontender, nondistended, normoactive bowel sounds, no guarding, no rebound, no hepatosplenomegaly, no masses. EXTREMITIES: 2+ pulses, warm, well-perfused, no edema. able to move RLE, limited movement of LLE, due to pain NEUROLOGICAL: Cranial nerves II through XII grossly intact. Normal speech, gait not observed. Strength 4/5 all extremities, sensation intact in all extremities, negative babinski reflex PSYCH: Normal mood, normal affect. SKIN: Warm, dry, normal turgor, no rashes or lesions noted LABS Laboratory Results - last 24 hr 10/18/19 10/18/19 08:15 08:15 WBC 10.3 H RBC 4.21 Hgb 12.5 Hct 37.5 MCV 89.1 MCH 29.8 MCHC 33.4 RDW 13.9 Plt Count 292 MPV 6.9 L Absolute Neuts (auto) 6.4 Neutrophils % 62.3 D Lymphocytes % 26.4 D Monocytes % 11.2 H Eosinophils % 0.0 D Basophils % 0.1 Nucleated RBC % 0 Sodium 138 Potassium 4.2 Chloride 103 Carbon Dioxide 29 Anion Gap 5 L BUN 22.4 H Creatinine 0.8 Est GFR (CKD-EPI)AfAm 146.96 Est GFR (CKD-EPI)NonAf 126.80 Random Glucose 94 Calcium 9.6 Phosphorus 3.6 Magnesium 2.4 Total Bilirubin 0.7 AST 26 ALT 137 H Alkaline Phosphatase 213 H Total Protein 7.3 Albumin 3.1 L HOSPITAL COURSE: Date of Admission:10/10/19 24M w/ no pmhx presents with complaints of LLE pain and weakness with infrequent unproductive cough, Admitted for LLE weakness/pain 2/2 acute radiculopathy due to disc herniaton CT L-spine and Lumbar MRI revealed DJD L4/5, L5/S1. L5/S1 disc herniation with extruded disc obliterating the left epidural recesses with mass effect on the L S1 nerve root; L4/5midline herniation lateralizing toward the R with indentation on the R L5 nerve root. no evidence of septic spondylitis, epidural abscess or praraspinal masses. Neurosurg consulted (Dr. mario), recommended that no acute neurosurgical intervention is indicated. pain management (Dr. Flynn)was consulted for ORALIA and patient recieved a L4-L5 transforminal epidural steroid injection, on 10/17/19. Labs revealed Elavated inflamatory markers and Elevated D-dimers (D-dimer 1028, Ferritin 2975, LD 332, CRP 12.3) with CTA positive for Bibasilar atelectasis. Patient was treated with 7 days of azithromycin and ceftriaxone for Pneumonia Labs also revealed elevated LFTs, AST/ALT 177/889 with CTAB showing hepatomegaly. Abdomen u/s also revealed Mild fatty infiltration vs hepatocellular disease. Mild Dilation of CBD 7mm w/o gallstones. MRCP was done to evaluate further, which revealed No evidence of dilatation of the common bile duct, common hepatic duct or intrahepatic biliary radicles. No evidence of choledocholithiasis. Poor definition of the body and tail of the pancreas. Patient was advised tto get an out pt evaluation with CTAB after discharge. Patient is clinically stable and wishes to go home. He is prescribed 30 days of Gabapentin and provided referrals to follow up with Neuro, GI, and Pain management. Minutes to complete discharge: 36 Discharge Summary Problems reviewed: Yes Reason For Visit: BACK PAIN Current Active Problems Dilated cbd, acquired (Acute) Elevated liver enzymes (Acute) Lumbago with sciatica, left side (Acute) Condition: Improved - Instructions Diet, Activity, Other Instructions: YOUR VISIT: You were admitted to the hospital for Left Lower leg pain and weakness. MRI imaging showed L5/S1 disc herniation with compression of S1 nerve root, which was most likely causing your pain and weakness on Left leg. Neurosurgery evaluated you and determined that you did not need an acute neurosurgical intervention and recommended and epidural steroid injection. pain management was consulted for L4-L5 transforminal epidural steroid injection. Epidural injection was administered on 10/17/19. You had elevated inflammatory markers and elevated liver function tests on your blood work, indicating some form of damage to your liver, most likely due to acute toxicity from medications you were taking at home for Pain. MEDICATIONS: Please START taking gabapentin to 600 mg three times a day Please DO NOT TAKE more than the recommended dose of tylenol: 8 pills per day or 4,000mg per day Continue to take all other home medications as prescribed FOLLOW UPS: Please follow up with your GI, Dr. Vásquez, within 2 weeks for out pt evaluation with CT Abdomen image, found some abnormalities in your liver on MRI Please follow up with your Neurologist, Dr. 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 Flynn within 2 weeks, for discussion of your epidural injections and management of your pain. Please follow up with your at home PT for continuous Physical therapy. ADDITIONAL INSTRUCTIONS: You are being discharged to your home. you will be having home PT and nurse services Please return to the Emergency department if you are experiencing worsening or concerning symptoms. Referrals: Dylon Dumont MD [Staff Physician] - 2 Weeks Kiran Vásquez DO [Staff Physician] - 2 Weeks (transaminitis) Steven Flynn DO [Staff Physician] - 2 Weeks Benigno Beckman MD [Primary Care Provider] - 1 Week Disposition: VNS/HOME HEALTH CARE - Home Medications Comprehensive Discharge Medication List: Ambulatory Orders Gabapentin [Neurontin -] 600 mg PO TID #60 capsule 10/18/19 This patient is new to me today: No Emergency Visit: Yes ED Registration Date: 10/10/19 Care time: The patient presented to the Emergency Department on the above date and was hospitalized for further evaluation of their emergent condition. Critical Care patient: No - Discharge Referral Referred to [facility] Med P.C[facility] No ATTENDING PHYSICIAN STATEMENT I saw and evaluated the patient. I reviewed the resident's note and discussed the case with the resident. I agree with the resident's findings and plan as documented. SUBJECTIVE: OBJECTIVE: ASSESSMENT AND PLAN:
[2019-10-18 18:58] VITALS: BP 114/60; PULSE 92; TEMP 98.3
--- NOTE | 2019-10-18 19:09 | PN ---
Progress Note (short form) - Note Progress Note: 24 year old male history of low back pain for two years he has been treated conservative. He is on gabapentin, morphine.Patient is having severe low abck pain shooting down to left lower extremity pain. He has mri of L spine showed there is large L5-s1 disc prolapse and herniation at left side s1 nerve. His pain is wose with coughing, stiting and walking. Michelle wa seen by neurosurgery and not a candidate and being planned for epidural.aJckelyn is not able to do much activity becaue of pain. - pain is much improved after carlos being discharged NEUROLOGICAL EXAMINATION Alert oriented x 3, neck is supple vss, afebrile eomi, pupils reactive strength is normal in upper extremity THere is slr is positive on left side both legs hip flexion , extension, planter flexion and extension is normal both aries e left leg knee flexion and extension diminished effort reflex are symmetrical -- exam remain unchanged, mri of L spine reviewed neurosurgery and pain management consult reviewed Assessment/Plan Left L5-S1 radiculopathy, no evidence of cord compression or cauda equina syndrome. Jackelyn has been on steroid and now on gabepntin, pt and waiting for CARLOS PLAN - continue gabapnetin to 600 mg po tid - zanaflex prn -going home, follow up outpatient. Dylon Botello MD
== END 2019-10-18 20:58 | disposition home health service (06) | DRG 347 ==
LOC: JER 00:32 → JERBED 19:21 → J6S 10-11 16:07
PROVIDERS: ADMIT Internal Medicine; ATTEND Student in an Organized Health Care Education/Training Program
PROC: 3E0S33Z Introduction of Anti-inflammatory into Epidural Space, Percutaneous Approach (ICD-10-PCS; principal; 2019-10-17 10:30)
DX: M51.17 Intervertebral disc disorders with radiculopathy, lumbosacral region (principal); J98.11 Atelectasis; D72.829 Elevated white blood cell count, unspecified; R74.8 Abnormal levels of other serum enzymes; J18.9 Pneumonia, unspecified organism; I31.3 Pericardial effusion (noninflammatory); J90 Pleural effusion, not elsewhere classified; R16.1 Splenomegaly, not elsewhere classified; R74.0 Nonspecific elevation of levels of transaminase and lactic acid dehydrogenase [LDH]
CPT/HCPCS: 36415; 71250-TC; 71275-TC; 72131-TC; 72146-TC; 72148-TC; 74176-TC; 74181-TC; 76000-TC-FY; 76705-TC; 80053; 80074; 80076; 80307; 81003; 82550; 82728; 83615; 83735; 84100; 84484; 85025; 85379; 85610; 85651; 85730; 86140; 86480; 86618; 86704; 86706; 86707; 86708; 86709; 87040; 87086; 87340; 87633; 87804; 93005; 93010; 93306-TC; 93970-TC; 97116-GP; 97162-GP; 99285-25; J1100; Q9967; U0003